=== PATIENT | female | born 1960 | race Caucasian/White ===

== ENCOUNTER → 2016-12-12 | Outpatient (CLI) | payer OTHER ==
[~2016-12-12] MED LIST: CALC500C70 PO; CIPR-255 PO; LOSARTAN PO; MELO7.5T5 PO; NRN100 PO
--- NOTE | 2016-12-12 14:42 | DIAGNOSTIC IMAGING REPORT ---
CT SCAN OF THE CHEST WITHOUT IV CONTRAST CLINICAL HISTORY: Hyponatremia. Weight loss. COMPARISON STUDY: Chest x-ray dated 11/06/2016. TECHNIQUE: CT scan of the thorax was performed from the thoracic inlet to the upper abdomen. Images are reviewed in the axial, sagittal, and coronal planes. IV contrast was not administered for this examination as per the referring clinician. CT DOSE: 174.23 mGycm FINDINGS: Thyroid: Imaged portions of the thyroid gland are normal in size and attenuation. Thoracic aorta: There is mild atherosclerotic calcification of the thoracic aorta, which is normal in caliber and demonstrates standard 3-vessel arch anatomy. Heart: The heart is normal in size and without pericardial effusion. The coronary arteries are densely calcified. The pulmonary trunk is normal in caliber. Lungs and pleural spaces: There is emphysema and biapical scarring. No airspace consolidation or pleural effusion is identified. Small fat-containing Bochdalek hernias are present at both lung bases. Minimal scarring is present in the right middle lobe and lingula. There are minimal layering secretions identified within the right mainstem bronchus. The trachea is clear. There is a 4 mm right upper lobe pulmonary nodule seen on axial image #102. A 2 mm right lower lobe nodule seen image 285. Calcified granuloma is also noted at the right lung base. Mediastinum: There is no mediastinal lymphadenopathy. Viri: Not well assessed without IV contrast. Axillae: There is no axillary lymphadenopathy. Upper abdomen: Diverticula are noted in the partially imaged left colon. Partially visualized upper abdominal viscera is otherwise within normal limits. Skeletal structures: The skeletal structures are osteopenic. No lytic or blastic bony lesions are seen. There are healed left-sided rib fractures. There is also likely a healed manubrial fracture. IMPRESSION: 1. Emphysema. 2. There is no airspace consolidation or pleural effusion. 3. There is an indeterminant 4 mm right upper lobe pulmonary nodule. A 2 mm pulmonary nodule is seen at the right lung base. These can be followed as per the Fleischner criteria. See below. 4. No mediastinal lymphadenopathy is identified. 5. Additional changes as above. Please refer to below summary of Fleischner criteria recommendations for follow-up of incidental CT nodules (Pavan Michel, Guidelines for management of small pulmonary nodules detected on CT scans: A statement from the Fleischner Society, Radiology 237: [id number].) Low Risk Patient: Minimal or no smoking or other known risk factors for malignancy <=4 mm: No follow-up needed. >4-6 mm: Initial follow-up CT at 12 months; if unchanged, no further follow-up. >6-8 mm: Initial follow-up CT at 6-12 months then at 18-24 months if no change. >8 mm: Follow-up CT at \R\3, 9, 24 months, or PET and/or biopsy. High Risk Patient: History of smoking or other known risk factors <=4 mm: Follow-up at 12 months; if unchanged, no further follow-up. >4-6 mm: Initial follow-up CT at 6-12 months then at 18-24 months if no change. >6-8 mm: Initial follow-up CT at 3-6 months then at 9-12 and 24 months if no change. >8 mm: Same as low risk patient. Note: Nodule size measured as average of length and width. Ground glass or partly solid nodules may require longer follow-up to exclude indolent adenocarcinoma. Electronically signed by: Deyvi Murrieta M.D. 12/12/2016 2:40 PM Dictated Date/Time: 12/12/2016 2:33 PM
== END | disposition home or self-care (01) ==
LOC: C.CTS 14:14
PROVIDERS: ATTEND Internal Medicine
DX: E87.1 Hypo-osmolality and hyponatremia (principal); R63.4 Abnormal weight loss; J43.9 Emphysema, unspecified; R91.8 Other nonspecific abnormal finding of lung field

== ENCOUNTER → 2016-12-19 | Outpatient (CLI) | payer OTHER ==
[2016-12-19 12:42] LABS: BLOOD UREA NITROGEN 4 mg/dl (7-18); BUN/CREATININE RATIO 5.8 (10-20); CALCIUM 8.9 mg/dl (8.5-10.1); CARBON DIOXIDE 25 mmol/L (21-32); CHLORIDE 97 mmol/L (98-107); CREATININE 0.68 mg/dl (0.60-1.20); GLUCOSE 109 mg/dl (70-99); SODIUM 132 mmol/L (136-145)
== END | disposition home or self-care (01) ==
LOC: C.LABBFT 09:24
PROVIDERS: ATTEND Internal Medicine
DX: I10 Essential (primary) hypertension (principal)

== ENCOUNTER → 2017-01-10 | Outpatient (CLI) | payer OTHER ==
--- NOTE | 2017-01-10 14:06 | DIAGNOSTIC IMAGING REPORT ---
CERVICAL SPINE 2 OR 3 VIEWS CLINICAL HISTORY: Neck pain. No recent injury. COMPARISON STUDY: No previous studies for comparison. FINDINGS: There is straightening of the normal cervical lordosis. Slight anterolisthesis of C4 on C5 is present. There is mild to moderate disc space narrowing at C5-C6. There is mild multilevel facet arthrosis. No fracture or suspicious lesion is present. Prevertebral soft tissues are unremarkable. IMPRESSION: 1. No cervical spine fracture or subluxation. 2. Mild to moderate degenerative disc disease at C5-C6. Electronically signed by: Teo Gtz M.D. 01/10/2017 2:05 PM Dictated Date/Time: 01/10/2017 2:02 PM
== END | disposition home or self-care (01) ==
LOC: C.RAD1850 13:50
PROVIDERS: ATTEND Internal Medicine
DX: M54.2 Cervicalgia (principal); M50.322 Other cervical disc degeneration at C5-C6 level

== ENCOUNTER → 2017-01-10 | Outpatient (CLI) | payer OTHER | END | disposition home or self-care (01) | LOC: C.MAMM 13:31 | PROVIDERS: ATTEND Internal Medicine | DX: M81.0 Age-related osteoporosis without current pathological fracture (principal) ==

== ENCOUNTER → 2017-03-05 | Outpatient (CLI) | payer OTHER ==
--- NOTE | 2017-03-05 09:55 | DIAGNOSTIC IMAGING REPORT ---
THORACIC SPINE 3 VIEWS ROUTINE CLINICAL HISTORY: Right arm pain and numbness. Osteoporosis. COMPARISON STUDY: Chest CT December 12, 2016. FINDINGS: There are several old left rib fractures. No thoracic spine fracture is identified. Disc spaces are preserved. There is minimal endplate osteophytosis. IMPRESSION: 1. No thoracic spine fracture or subluxation. 2. Minimal multilevel degenerative disc disease of the thoracic spine. Electronically signed by: Teo Gtz M.D. 03/05/2017 9:53 AM Dictated Date/Time: 03/05/2017 9:51 AM
[2017-03-05 12:33] LABS: CALCIUM 8.9 mg/dl (8.5-10.1)
[2017-03-06 16:40] LABS: ALBUMIN 4.3 G/DL (3.8-4.8); GAMMA GLOBULIN 0.9 G/DL (0.8-1.7)
== END | disposition home or self-care (01) ==
LOC: C.RAD1850 09:07
PROVIDERS: ATTEND Internal Medicine Rheumatology
DX: M81.0 Age-related osteoporosis without current pathological fracture (principal); M51.34 Other intervertebral disc degeneration, thoracic region

== ENCOUNTER → 2017-03-08 | Outpatient (CLI) | payer OTHER ==
--- NOTE | 2017-03-08 07:30 | DIAGNOSTIC IMAGING REPORT ---
CERVICAL SPINE MRI HISTORY: Pain CERVICAL RADICULOPATHY TECHNIQUE: Multiplanar multisequence MRI of the cervical spine was performed without the use of contrast. COMPARISON STUDY: None. FINDINGS: Unremarkable signal characteristics of the vertebral bodies. Benign bone marrow hemangioma C6. Posterior bulging disc components C5-C6 and to a lesser extent C6-C7. Signal characteristics the cervical cord are unremarkable. C2-C3: No significant central canal or neural foraminal narrowing. C3-C4: No significant central canal or neural foraminal narrowing. C4-C5: No significant central canal or neural foraminal narrowing. C5-C6: Broad-based disc herniation. Contact with but no major deformity of the cervical cord. Considerable narrowing of the neuroforamina bilaterally. C6-C7: Slight right central disc bulge. Mild narrowing right neural foramina. No impact with cervical cord C7-T1: No significant central canal or neural foraminal narrowing. IMPRESSION: 1. Broad-based disc herniation C5-C6. 2. This shows considerable narrowing of the neuroforamina bilaterally. 3. Slight right central disc bulge C6-C7 with mild narrowing of the right neuroforamina Electronically signed by: Karl Diaz M.D. 03/08/2017 7:28 AM Dictated Date/Time: 03/08/2017 7:24 AM
== END | disposition home or self-care (01) ==
LOC: C.MRI 03-06 07:37
PROVIDERS: ATTEND Internal Medicine
DX: M54.12 Radiculopathy, cervical region (principal); R29.898 Other symptoms and signs involving the musculoskeletal system

== ENCOUNTER → 2017-05-20 | Outpatient (CLI) | payer OTHER | END | disposition home or self-care (01) | LOC: C.LAB1850 11:20 | PROVIDERS: ATTEND Internal Medicine Rheumatology | DX: E55.9 Vitamin D deficiency, unspecified (principal); E61.8 Deficiency of other specified nutrient elements; M81.0 Age-related osteoporosis without current pathological fracture ==

== ENCOUNTER → 2017-07-15 | Outpatient (CLI) | payer OTHER ==
--- NOTE | 2017-07-15 11:05 | DIAGNOSTIC IMAGING REPORT ---
SI JOINTS 3 OR MORE VIEWS CLINICAL HISTORY: 57 years-old Female presenting with SACROILIITIS. TECHNIQUE: Frontal and bilateral oblique views of the sacroiliac joints were obtained. COMPARISON: None. FINDINGS: No significant abnormality of the sacroiliac joints. Arcuate lines intact. No acute fracture or malalignment is evident. No significant degenerative change in the lower lumbar spine. Bilateral hip joints grossly normal. IMPRESSION: No radiographic abnormality of the bilateral sacroiliac joints. Electronically signed by: Erich Noriega M.D. 07/15/2017 11:04 AM Dictated Date/Time: 07/15/2017 11:02 AM
== END | disposition home or self-care (01) ==
LOC: C.RADBC 10:33
PROVIDERS: ATTEND Physician Assistant Medical
DX: M46.1 Sacroiliitis, not elsewhere classified (principal)

== ENCOUNTER 2017-12-21 11:06 | Emergency (ER) | payer OTHER ==
[~2017-12-21] VITALS: Ht 167.6 cm; Wt 43.3 kg
[~2017-12-21 11:06] MED LIST changes: -CIPR-255 PO
[2017-12-21 11:11] VITALS: TEMP 36.4; Ht 167.6 cm; Wt 43.3 kg
[2017-12-21] MEDS ORDERED: LOSA50TA6 PO (11:20)
--- NOTE | 2017-12-21 12:55 | DIAGNOSTIC IMAGING REPORT ---
L HIP UNILATERAL 2 VIEWS CLINICAL HISTORY: Fall. Posterior left hip pain. COMPARISON: None FINDINGS: Alignment of the left hip is anatomic. No acute fracture is identified. There is mild osteoarthritis of the left hip. IMPRESSION: No acute fracture or dislocation of the left hip. Electronically signed by: Teo Gtz M.D. 12/21/2017 12:53 PM Dictated Date/Time: 12/21/2017 12:53 PM
--- NOTE | 2017-12-21 12:56 | DIAGNOSTIC IMAGING REPORT ---
L KNEE 3 VIEWS CLINICAL HISTORY: Anterior left knee pain following fall. COMPARISON: None FINDINGS: Alignment of the left knee is anatomic. There is apparent osteopenia. There is no acute fracture. There is mild to moderate vascular calcification. IMPRESSION: 1. No acute fracture or joint effusion of the left knee. 2. Apparent osteopenia. Electronically signed by: Teo Gtz M.D. 12/21/2017 12:55 PM Dictated Date/Time: 12/21/2017 12:54 PM
--- NOTE | 2017-12-21 12:56 | DIAGNOSTIC IMAGING REPORT ---
R KNEE 3 VIEWS CLINICAL HISTORY: Anterior right knee pain following fall. COMPARISON: None FINDINGS: Alignment of the right knee is anatomic. No acute fracture or joint effusion is present. There is moderate vascular calcification. There is apparent osteopenia. IMPRESSION: 1. No acute fracture or joint effusion of the right knee. 2. Apparent osteopenia. Electronically signed by: Teo Gtz M.D. 12/21/2017 12:54 PM Dictated Date/Time: 12/21/2017 12:54 PM
[2017-12-21 13:28] VITALS: BP 134/91; PULSE 76; O2SAT 99
--- NOTE | 2017-12-21 20:50 | EMERGENCY ROOM VISIT NOTE ---
ED Visit Note First contact with patient: 12:01 Chief Complaint: I fell walking up the stairs at work and hurt both knees and my left hip. History of Present Illness: Ms. Avitia is a 57-year-old white female who ambulates into the ED with a limp complaining of bilateral anterior knee pain and posterior left hip pain. Patient reports she was at work today walking up stairs, tripped and fell onto her knees. She reports before the fall she was not experiencing lightheadedness or dizziness, the time of the fall she did not strike her head or have a loss of consciousness and since the fall she is not experiencing any signs of head injury. Currently she is complaining of bilateral anterior knee pain; left greater than the right. She describes her pain as an achy sensation. She rates her discomfort 7/10. Her pain in her left knee worsens with ambulation. She has not found any factors that increase or right. She has not identified any alleviating factors related to the pain. She has not taken any medications for pain prior to arrival at the hospital. Associated with her pain she does report that she is having posterior left hip pain. She describes this as an achy sensation and rates her discomfort 5/10. She has not identified any aggravating or alleviating factors related to the pain. She denies any associated back pain, abdominal pain, leg weakness/numbness/ tingling. Additionally she denies any previous significant knee or hip injuries /surgeries. Review of Systems: As noted above in history of present illness. 5 body systems were reviewed and found to be negative as noted above. Past Medical History: Hypertension, osteoporosis, hyponatremia and status post unspecified left wrist surgery. Current Medications: Calcium/vitamin D, Cozaar. Allergies to Medications: IV contrast materials. Social History: Patient is currently employed; she feels safe in her home environment; she admits to tobacco use. Physical Examination: Vital Signs: Date Time Temp Pulse Resp B/P (MAP) Pulse Ox O2 Delivery O2 Flow Rate FiO2 12/21/17 13:28 76 134/91 99 12/21/17 11:11 36.4 80 18 179/105 96 Room Air GENERAL: 57-year-old female in mild distress due to pain, nontoxic-appearing, afebrile and hemodynamically stable. NEUROLOGICAL: Awake, alert and oriented to person, place and time. Answering questions appropriately and following commands. Limped gait. Good hand eye coordination. SKIN: Warm, dry and pink. Right Knee: Superficial abrasion over the patellar tendon. No active bleeding. HEENT: Atraumatic and normocephalic. BACK: No tenderness over the bony spine. RIGHT LOWER EXTREMITY: No gross bony deformity. No shortening or malrotation. No tenderness over the hip, thigh, lower leg or ankle. Mild anterior tenderness without bony deformity or crepitus. Negative bounce test. Negative patellar apprehension test. Negative effusion test. No laxity of the collateral or cruciate ligaments. Negative meniscus testing. Throughout the lower leg skin was warm and pink and capillary refill is brisk. She is able to distinguish light sensations through all dermatomes. Full range of motion against resistance flexion and extension of the knee and plantar flexion and dorsiflexion of the ankle. LEFT LOWER EXTREMITY: No gross bony deformity. No shortening or malrotation. Mild tenderness over the posterior humeral head without bony deformity, bony crepitus, swelling or ecchymosis. No tenderness throughout the thigh. Mild tenderness over the anterior knee without bony deformity or crepitus. Negative bounce test. Negative patellar apprehension test. Negative effusion test. No laxity of the collateral or cruciate ligaments. Negative meniscus testing. Throughout the lower leg skin was warm and pink and capillary refill is brisk. She is able to distinguish light sensations through all dermatomes. Full range of motion against resistance flexion and extension of the knee and plantar flexion and dorsiflexion of the ankle. ED Course: Patient is assessed as noted above. Patient's medication list was reviewed. Patient was offered pain medication and refused. Left Hip X-Rays: Were read by myself and the radiologist showing no acute fracture dislocations. Right Knee X-Rays: Were read by myself and the radiologist showing no acute fractures or dislocations. Radiologist notes apparent osteopenia. Left Hip X-Rays: Were read by myself and the radiologist showing no acute fractures or dislocations. Radiologist notes apparent osteopenia. Patient was offered knee immobilizer, Albino bandages, walker, cane and crutches and refused all; patient reports she had a spent edges at home and would prefer to use those. Patient was educated about today's findings and instructed on her treatment plan ; she verbalized understanding and agreement with this plan. Clinical Impression: Fall. Bilateral anterior knee pain. Left posterior hip pain. Disposition: Patient discharged home in stable condition accompanied by her boyfriend; prior to departure she was reassessed and subjectively reported she was feeling much better and rated her discomfort 3/10. Plan: Patient is encouraged to alternate ibuprofen and acetaminophen every 3 hours for persistent pain per Patient was encouraged use ice on areas of pain 4-5 times a day for 20-30 minutes per Patient was encouraged to use her home knee splint or Albino bandage for support until pain-free. Patient is encouraged to follow-up with her primary care provider if no better in 4-5 days. Patient was encouraged return ED for worsening/uncontrolled pain, uncontrolled swelling, leg weakness/numbness/tingling or any new/concerning symptoms.
== END 2017-12-21 13:20 | disposition home or self-care (01) ==
LOC: C.EDB 11:07 → C.EDD 13:20
DX: M25.561 Pain in right knee (principal); M25.562 Pain in left knee; M25.552 Pain in left hip; W10.9XXA Fall (on) (from) unspecified stairs and steps, initial encounter; W22.8XXA Striking against or struck by other objects, initial encounter; Y93.01 Activity, walking, marching and hiking; Y99.8 Other external cause status; I10 Essential (primary) hypertension; M81.0 Age-related osteoporosis without current pathological fracture; Z72.0 Tobacco use; Z98.890 Other specified postprocedural states; Z79.899 Other long term (current) drug therapy

== ENCOUNTER → 2017-12-30 | Outpatient (CLI) | payer OTHER ==
[~2017-12-30] MED LIST changes: +LOSA50TA6 PO; -LOSARTAN PO; -MELO7.5T5 PO; -NRN100 PO
--- NOTE | 2017-12-30 11:10 | DIAGNOSTIC IMAGING REPORT ---
(CHEST) THORAX WITHOUT CT DOSE: 215.24 mGy.cm HISTORY: Pulmonary nodule R91.1 Pulmonary nodule1 year follow-[id number] TECHNIQUE: Multiaxial CT images of the chest were performed without contrast. A dose lowering technique was utilized adhering to the principles of ALARA. COMPARISON: None. FINDINGS: Stable emphysematous change. No focal infiltrate. Biapical pleural and parenchymal fibrotic scarring considered chronic. Right lung micronodular area stable. No evidence for new interval or progressive process. No significant mediastinal or hilar adenopathy. IMPRESSION: 1. Unchanged exam. 2. Stable emphysematous change. 3. Micronodularity right hemithorax is unchanged. A 1-2 year follow-up is suggested. The above report was generated using voice recognition software. It may contain grammatical, syntax or spelling errors. Electronically signed by: Karl Diaz M.D. 12/30/2017 11:08 AM Dictated Date/Time: 12/30/2017 11:04 AM
== END | disposition home or self-care (01) ==
LOC: C.CTS 10:52
PROVIDERS: ATTEND Internal Medicine
DX: R91.1 Solitary pulmonary nodule (principal)

== ENCOUNTER 2018-06-08 19:38 | Inpatient (IN) | payer OTHER ==
[~2018-06-08] VITALS: Ht 167.6 cm; Wt 43.7 kg
[2018-06-08] MEDS ORDERED: HYDROmorphone INJ 1 MG/ML SYR IV STA (20:10)
[2018-06-08] MEDS ORDERED: MELO7.5T5 PO (20:43)
[2018-06-08] MEDS ORDERED: LORA-741 PO (20:43)
[2018-06-08] MEDS ORDERED: LOSA100T65 PO (20:43)
[2018-06-08 20:53] LABS: BASO % 0.5 %; BASO ABS # 0.03 K/uL (0-0.2); EOS % 0.8 %; EOS ABS # 0.05 K/uL (0-0.5); HEMATOCRIT 34.9 % (37-47); HEMOGLOBIN 12.9 g/dL (12.0-16.0); IG# 0.02 K/uL (0.00-0.02); LYMPH % 34.6 %; MEAN CELL VOLUME 91.1 fL (80-100); MEAN CORPUSCULAR HEMOGLOBIN 33.7 pg (25-34); MEAN PLATELET VOLUME 7.9 fL (7.4-10.4); MONO % 11.8 %; MONO ABS # 0.75 K/uL (0.11-0.59); PLATELET COUNT 370 K/uL (130-400); RED CELL DISTRIBUTION WIDTH CV 12.3 % (11.5-14.5); RED CELL DISTRIBUTION WIDTH SD 40.9 fL (36.4-46.3); WHITE BLOOD COUNT 6.35 K/uL (4.8-10.8)
--- NOTE | 2018-06-08 20:58 | DIAGNOSTIC IMAGING REPORT ---
LUMBAR SPINE WITHOUT CT DOSE: 283.64 mGy.cm HISTORY: Pain lower back pain TECHNIQUE: Multiaxial CT images of the lumbar spine were performed and reformatted in the sagittal and coronal plane without the use of contrast. A dose lowering technique was utilized adhering to the principles of ALARA. COMPARISON: None. FINDINGS: No fractures. No subluxation. Paraspinal soft tissues are unremarkable. Minimal disc changes throughout. Mild osteophytes throughout. No significant compromise of spinal canal based on this modality IMPRESSION: Minimal to mild degenerative disc change. No significant component of spinal stenosis. No acute process. The above report was generated using voice recognition software. It may contain grammatical, syntax or spelling errors. Electronically signed by: Karl Diaz M.D. 06/08/2018 8:56 PM Dictated Date/Time: 06/08/2018 8:54 PM
[2018-06-08] MEDS ORDERED: ONDANSETRON INJ 2 MG/ML 2 ML VIAL IV STA (21:06)
[2018-06-08] MEDS ORDERED: ONDANSETRON INJ 2 MG/ML 2 ML VIAL ONE (21:08)
[2018-06-08 21:25] LABS: CALCIUM 8.6 mg/dl (8.5-10.1); CREATININE 0.67 mg/dl (0.60-1.20); POTASSIUM 4.7 mmol/L (3.5-5.1); TOTAL PROTEIN 7.3 gm/dl (6.4-8.2)
--- NOTE | 2018-06-08 22:08 | EMERGENCY ROOM VISIT NOTE ---
History Report prepared by Juan: Courtney Borden Under the Supervision of: Dr. Richard Roldan First contact with patient: 20:03 Chief Complaint: BACK PAIN Stated Complaint: BACK PAIN History of Present Illness The patient is a 58 year old female who presents to the Emergency Room with complaints of worsening lower back pain over the last month. The patient states that last month she started to have lower back pain in addition to her neck pain. The patient reports that she had an MRI of her neck done but that she has not had imaging of her back done. The patient reports that the MRI showed disc problems. She reports that her pain occasionally radiates to her left leg. She denies having any new numbness or tingling in her legs. She denies any recent falls or lifting. She reports normal bowel movements and urination. She states that she saw her back doctor last week and had an IV injection and was given 2 Tylenol. The patient states that her doctor told her that she should go to therapy. She states that she has been taking Tylenol for her pain but that it has not helped her much. She reports that moving exacerbates her pain. The patient denies a history of lower back surgeries. Source of History: patient Onset: over the last month Position: back Quality: other (pain) Timing: worsening Modifying Factors (Worsening): movement Associated Symptoms: No urinary symptoms, No numbness Review of Systems See HPI for pertinent positives and negatives. A total of ten systems were reviewed and were otherwise negative. Past Medical & Surgical Medical Problems: (1) Open reduction of fracture (2) Pneumonia Family History No pertinent family history Social History Smoking Status: Current Every Day Smoker Marital Status: in relationship Housing Status: lives with significant other Occupation Status: employed Current/Historical Medications Scheduled Losartan Potassium (Cozaar), 100 MG PO DAILY Scheduled PRN Lorazepam (Ativan), 0.5 MG PO BID PRN for Anxiety Meloxicam (Mobic), 7.5-15 MG PO DAILY PRN for Pain Allergies Coded Allergies: Iodinated Diagnostic Agents (Unverified Allergy, Unknown, UNKNOWN, 12/21/17 ) Uncoded Allergies: IVP DYE (Allergy, Unknown, swelling hives, 11/06/16) Physical Exam Vital Signs Date Time Temp Pulse Resp B/P (MAP) Pulse Ox O2 Delivery O2 Flow Rate FiO2 06/08/18 22:30 77 22 136/78 100 Room Air 06/08/18 22:00 69 16 150/80 98 Room Air 06/08/18 21:22 72 06/08/18 21:10 79 28 154/90 98 Room Air 06/08/18 19:41 36.7 94 20 198/101 99 Room Air Physical Exam GENERAL: Uncomfortable lying in bed. HENT: Normocephalic, atraumatic. Oropharynx unremarkable. EYES: Normal conjunctiva. Sclera non-icteric. NECK: Supple. No nuchal rigidity. RESPIRATORY: Clear to auscultation. No wheezes. Normal respiratory effort. CARDIAC: Normal rate. Normal rhythm. Extremities warm and well perfused. GI: Soft, non-distended. No tenderness to palpation. No rebound or guarding. No masses. RECTAL: Deferred. MUSCULOSKELETAL: Atraumatic. Chest examination reveals no tenderness. The back is symmetrical on inspection without obvious abnormality. Very mild lower lumbar midline tenderness. No significant paraspinal tenderness. Intact neurologic sensation and movement of the bilateral feet. No saddle paresthesia. There is no CVA tenderness to palpation. LOWER EXTREMITIES: Calves are equal size bilaterally and non-tender. No edema. 2 + bilateral patellar reflexes. NEURO: Normal sensorium. No sensory or motor deficits noted. SKIN: Warm and dry. No rash or jaundice noted. Medical Decision & Procedures ER Provider Diagnostic Interpretation: Radiology results as stated below per my review and radiologist interpretation: LUMBAR SPINE WITHOUT CT DOSE: 283.64 mGy.cm HISTORY: Pain lower back pain TECHNIQUE: Multiaxial CT images of the lumbar spine were performed and reformatted in the sagittal and coronal plane without the use of contrast. A dose lowering technique was utilized adhering to the principles of ALARA. COMPARISON: None. FINDINGS: No fractures. No subluxation. Paraspinal soft tissues are unremarkable. Minimal disc changes throughout. Mild osteophytes throughout. No significant compromise of spinal canal based on this modality IMPRESSION: Minimal to mild degenerative disc change. No significant component of spinal stenosis. No acute process. The above report was generated using voice recognition software. It may contain grammatical, syntax or spelling errors. Electronically signed by: Karl Diaz M.D. 06/08/2018 8:56 PM Dictated Date/Time: 06/08/2018 8:54 PM Laboratory Results 06/08/18 20:43 Red Blood Count 3.83, Mean Corpuscular Volume 91.1, Mean Corpuscular Hemoglobin 33.7, Mean Corpuscular Hemoglobin Concent 37.0, Mean Platelet Volume 7.9, Neutrophils (%) (Auto) 52.0, Lymphocytes (%) (Auto) 34.6, Monocytes (%) (Auto) 11.8, Eosinophils (%) (Auto) 0.8, Basophils (%) (Auto) 0.5, Neutrophils # (Auto ) 3.30, Lymphocytes # (Auto) 2.20, Monocytes # (Auto) 0.75, Eosinophils # (Auto ) 0.05, Basophils # (Auto) 0.03 06/08/18 20:43 Test 06/08/18 20:43 06/08/18 22:55 White Blood Count 6.35 K/uL (4.8-10.8) Red Blood Count 3.83 M/uL (4.2-5.4) Hemoglobin 12.9 g/dL (12.0-16.0) Hematocrit 34.9 % (37-47) Mean Corpuscular Volume 91.1 fL (80-100) Mean Corpuscular Hemoglobin 33.7 pg (25-34) Mean Corpuscular Hemoglobin Concent 37.0 g/dl (32-36) Platelet Count 370 K/uL (130-400) Mean Platelet Volume 7.9 fL (7.4-10.4) Neutrophils (%) (Auto) 52.0 % Lymphocytes (%) (Auto) 34.6 % Monocytes (%) (Auto) 11.8 % Eosinophils (%) (Auto) 0.8 % Basophils (%) (Auto) 0.5 % Neutrophils # (Auto) 3.30 K/uL (1.4-6.5) Lymphocytes # (Auto) 2.20 K/uL (1.2-3.4) Monocytes # (Auto) 0.75 K/uL (0.11-0.59) Eosinophils # (Auto) 0.05 K/uL (0-0.5) Basophils # (Auto) 0.03 K/uL (0-0.2) RDW Standard Deviation 40.9 fL (36.4-46.3) RDW Coefficient of Variation 12.3 % (11.5-14.5) Immature Granulocyte % (Auto) 0.3 % Immature Granulocyte # (Auto) 0.02 K/uL (0.00-0.02) Anion Gap 9.0 mmol/L (3-11) Est Creatinine Clear Calc Drug Dose 61.5 ml/min Estimated GFR () 110.7 Estimated GFR (Non- 95.5 BUN/Creatinine Ratio 6.0 (10-20) Osmolality 237 mOsm/kg (280-300) Calcium Level 8.6 mg/dl (8.5-10.1) Magnesium Level 2.0 mg/dl (1.8-2.4) Total Bilirubin 0.6 mg/dl (0.2-1) Direct Bilirubin 0.2 mg/dl (0-0.2) Aspartate Amino Transf (AST/SGOT) 29 U/L (15-37) Alanine Aminotransferase (ALT/SGPT) 24 U/L (12-78) Alkaline Phosphatase 87 U/L (45-117) Total Protein 7.3 gm/dl (6.4-8.2) Albumin 4.0 gm/dl (3.4-5.0) Lipase 129 U/L (73-393) Thyroid Stimulating Hormone (TSH) 2.080 uIu/ml (0.300-4.500) Laboratory results reviewed by me Medications Administered Medications (Trade) Dose Ordered Sig/Rivera Route Start Time Stop Time Status Last Admin Dose Admin Hydromorphone HCl (Dilaudid Inj) 1 mg NOW STAT IV 06/08/18 20:10 06/08/18 20:16 DC 06/08/18 20:40 1 MG Ondansetron HCl (Zofran Inj) 4 mg NOW STAT IV 06/08/18 21:06 06/08/18 21:08 DC 06/08/18 21:06 4 MG ECG Per My Interpretation Indication: weakness Rhythm: normal sinus Findings: no ectopy, other (No ST segment elevation. Prominent precordial T waves.) Comparison ECG Date: Change: Compared to previous from November 06, 2016 no appreciable change when accounting for some precordial lead placement variation. ED Course 2002: The patient was evaluated in room C10. A complete history and physical exam was performed. 2009: Ordered Dilaudid Inj 1 mg IV. 2105: Ordered Zofran Inj 4 mg IV. 2139: Updated patient on CT results and labs. Patient pain somewhat improved. Sodium critically low. 2149: [facility] [place] Dr. Mcwilliams contacted for admission of patient. Patient will be evaluated. Medical Decision Differential diagnosis: Etiologies such as musculoskeletal, disc herniation, fracture, aortic disease, metastatic disease, cord compression, discitis, infection, renal colic, gastrointestinal, acute exacerbation of chronic back pain, sciatica, cauda equina, as well as others were entertained. Patient presents complaining of month of worsening back pain. Recently had a Reclast injection last week. No nausea or vomiting or abdominal pain. No neurological symptoms in lower extremities or saddle anesthesia. No bladder or bowel incontinence. Denies recent trauma. Has a history of some spine issues. Refractory to Tylenol and meloxicam at home. Feels somewhat tremulous and foggy. Basic laboratory studies were evaluated but I doubt any intra-abdominal pathology she has a benign abdomen. Do not believe this is cauda equina or spinal epidural abscess. CT scan of the lower lumbar spine was obtained to exclude an occult fracture; not noted. Some mild degenerative changes noted. No evidence of shingles. This could be somewhat related also to the Reclast injection giving her some pain as well. Doubt acute infection. Doubt pancreatitis or dissection. Laboratory studies do show a significant hyponatremia. She does relate that she drinks about 2 beers a day and has had significantly decreased oral intake over the last several days due to her back pain. No diarrhea or vomiting. On losartan for BP only. Kidney function appears at baseline without acidosis, hypomagnesemia, or hypokalemia. No TSH abnormality. No hepatic abnormalities or lipase elevation. Low serum osms. Appears mildly dehydrated but need to be cautious with rehydration given her sodium status. Urine studies pending. Plan admission for hyponatremia workup. [place] Drug Monitoring Program Search Results: patient reviewed within database, no issues identified Medication Reconcilliation Current Medication List: was personally reviewed by me Blood Pressure Screening Patient's blood pressure: Elevated blood pressure Blood pressure disposition: Referred to PCP Impression Primary Impression: Hyponatremia Additional Impression: Back pain Scribe Attestation The scribe's documentation has been prepared under my direction and personally reviewed by me in its entirety. I confirm that the note above accurately reflects all work, treatment, procedures, and medical decision making performed by me. Departure Information Referrals Estefania Gtz M.D. (PCP) Patient Instructions My [facility] Problem Qualifiers Additional Impression: Back pain Back pain location: low back pain Chronicity: acute Back pain laterality: bilateral Sciatica presence: without sciatica Qualified Codes: M54.5 - Low back pain
[2018-06-08 23:22] LABS: SODIUM RANDOM URINE 29 mEq/L
[2018-06-08 23:49] LABS: OSMOLALITY,URINE 242 mOms/kg (500-800)
--- NOTE | 2018-06-09 00:07 | History and Physical ---
History & Physical Date & Time of Service: Jun 09, 2018 at 00:07 Chief Complaint: Back Pain Primary Care Physician: Estefania Gtz M.D. History of Present Illness Source: patient, family 77 yo F h/o HTN on Losartan p/w back pain x 1.5 months ago. Left lower back, flank pain. She was seen by by Pain management physial therapy. Pain has worsened within last week. Pain is constant, 10/10 severity. no aggravating, or alleviating factors. Patient reports nausea/vomiting x 6 days. She denies fever , chills ,abdominal pain, diarrhea, thought she reports multiple episodes of diarrhea. She denies urinary freq urgency, hematuria. She occasionally gets shooting pain down Left leg. No history of cancer, no loss of bladder or bowel control. In the ED, patient arrived afebrile. BP initially elevated at 198/101 but lowered to 136/78. CT Lumbar spine showed minimal to ,mild degenerative disc change, no acute processes. WBC ct wnl. NA 115 ( baseline 129-132) Serum osm 237, Bun/Cr wnl. Past Medical/Surgical History Medical Problems: (1) Diarrhea (2) Fall (on) (from) other stairs and steps, initial encounter (3) Open reduction of fracture (4) Pneumonia (5) UTI (urinary tract infection) (6) Viral upper respiratory infection Family History CAD Social History Smoking Status: Current Every Day Smoker Smokeless Tobacco Use: No Alcohol Use: none Drug Use: none Marital Status: in relationship Housing status: lives with family Occupational Status: employed Immunizations History of Influenza Vaccine: Unknown History of Tetanus Vaccine?: Unknown History of Pneumococcal: Unknown History of Hepatitis B Vaccine: Unknown Allergies Coded Allergies: Iodinated Diagnostic Agents (Unverified Allergy, Unknown, swelling, hives , 06/09/18) Home Medications Scheduled Losartan Potassium (Cozaar), 100 MG PO DAILY Scheduled PRN Lorazepam (Ativan), 0.5 MG PO BID PRN for Anxiety Meloxicam (Mobic), 7.5-15 MG PO DAILY PRN for Pain Review of Systems Constitutional: No fever, No chills, No weakness ENT: No nasal symptoms, No sore throat Respiratory: No cough, No shortness of breath Cardiovascular: No chest pain, No edema, No palpitations Abdomen: + nausea, + vomiting, No pain, No diarrhea Musculoskeletal: No swelling, No calf pain Genitourinary - Female: No dysuria, No urinary frequency, No urinary urgency Neurologic: No weakness, No numbness/tingling Integumentary: No rash, No itch Physical Exam Vital Signs Date Time Temp Pulse Resp B/P (MAP) Pulse Ox O2 Delivery O2 Flow Rate FiO2 06/08/18 23:00 70 22 143/86 06/08/18 22:30 77 22 136/78 100 Room Air 06/08/18 22:00 69 16 150/80 98 Room Air 06/08/18 21:22 72 06/08/18 21:10 79 28 154/90 98 Room Air 06/08/18 19:41 36.7 94 20 198/101 99 Room Air GENERAL: alert, mild distress, thin EYE EXAM: normal conjunctiva, PERRL and EOM's grossly intact OROPHARYNX: no exudate, no erythema, lips, buccal mucosa, and tongue normal and mucous membranes are moist NECK: supple, no nuchal rigidity, no adenopathy, non-tender LUNGS: Clear to auscultation. Normal chest wall mechanics HEART: no murmurs, S1 normal and S2 normal ABDOMEN: abdomen soft, non-tender, normo-active bowel sounds, no masses, no rebound or guarding. BACK: Back is symmetrical on inspection and there is no deformity, no midline tenderness, +CVA tenderness. SKIN: no rashes and no bruising UPPER EXTREMITIES: upper extremities are grossly normal. LOWER EXTREMITIES: No pitting edema. NEURO EXAM: Normal sensorium, cranial nerves II-XII grossly intact, normal speech, no gross weakness of arms, no gross weakness of legs. Diagnostics Laboratory Results Results Past 24 Hours Test 06/08/18 20:43 06/08/18 22:55 Range/Units White Blood Count 6.35 4.8-10.8 K/uL Red Blood Count 3.83 4.2-5.4 M/uL Hemoglobin 12.9 12.0-16.0 g/dL Hematocrit 34.9 37-47 % Mean Corpuscular Volume 91.1 80-100 fL Mean Corpuscular Hemoglobin 33.7 25-34 pg Mean Corpuscular Hemoglobin Concent 37.0 32-36 g/dl Platelet Count 370 130-400 K/uL Mean Platelet Volume 7.9 7.4-10.4 fL Neutrophils (%) (Auto) 52.0 % Lymphocytes (%) (Auto) 34.6 % Monocytes (%) (Auto) 11.8 % Eosinophils (%) (Auto) 0.8 % Basophils (%) (Auto) 0.5 % Neutrophils # (Auto) 3.30 1.4-6.5 K/uL Lymphocytes # (Auto) 2.20 1.2-3.4 K/uL Monocytes # (Auto) 0.75 0.11-0.59 K/uL Eosinophils # (Auto) 0.05 0-0.5 K/uL Basophils # (Auto) 0.03 0-0.2 K/uL RDW Standard Deviation 40.9 36.4-46.3 fL RDW Coefficient of Variation 12.3 11.5-14.5 % Immature Granulocyte % (Auto) 0.3 % Immature Granulocyte # (Auto) 0.02 0.00-0.02 K/uL Sodium Level 115 136-145 mmol/L Potassium Level 4.7 3.5-5.1 mmol/L Chloride Level 83 98-107 mmol/L Carbon Dioxide Level 23 21-32 mmol/L Anion Gap 9.0 3-11 mmol/L Blood Urea Nitrogen 4 7-18 mg/dl Creatinine 0.67 0.60-1.20 mg/dl Est Creatinine Clear Calc Drug Dose 61.5 ml/min Estimated GFR () 110.7 Estimated GFR (Non- 95.5 BUN/Creatinine Ratio 6.0 10-20 Random Glucose 89 70-99 mg/dl Osmolality 237 280-300 mOsm/kg Calcium Level 8.6 8.5-10.1 mg/dl Magnesium Level 2.0 1.8-2.4 mg/dl Total Bilirubin 0.6 0.2-1 mg/dl Direct Bilirubin 0.2 0-0.2 mg/dl Aspartate Amino Transf (AST/SGOT) 29 15-37 U/L Alanine Aminotransferase (ALT/SGPT) 24 12-78 U/L Alkaline Phosphatase 87 45-117 U/L Total Protein 7.3 6.4-8.2 gm/dl Albumin 4.0 3.4-5.0 gm/dl Lipase 129 73-393 U/L Thyroid Stimulating Hormone (TSH) 2.080 0.300-4.500 uIu/ml Urine Color YELLOW Urine Appearance CLOUDY CLEAR Urine pH 5.5 4.5-7.5 Urine Specific [place] 1.011 1.000-1.030 Urine Protein NEG NEG Urine Glucose (UA) NEG NEG Urine Ketones TRACE NEG Urine Occult Blood TRACE NEG Urine Nitrite POS NEG Urine Bilirubin NEG NEG Urine Urobilinogen NEG NEG Urine Leukocyte Esterase LARGE NEG Urine WBC (Auto) >30 0-5 /hpf Urine RBC (Auto) 0-4 0-4 /hpf Urine Hyaline Casts (Auto) 1-5 0-5 /lpf Urine Epithelial Cells (Auto) 20-30 0-5 /lpf Urine Bacteria (Auto) 4+ NEG Urine Osmolality 242 500-800 mOms/kg Urine Random Sodium 29 mEq/L Microbiology Results 06/08/18 Urine Culture, Received Pending Diagnostic Radiology LUMBAR SPINE WITHOUT CT DOSE: 283.64 mGy.cm HISTORY: Pain lower back pain TECHNIQUE: Multiaxial CT images of the lumbar spine were performed and reformatted in the sagittal and coronal plane without the use of contrast. A dose lowering technique was utilized adhering to the principles of ALARA. COMPARISON: None. FINDINGS: No fractures. No subluxation. Paraspinal soft tissues are unremarkable. Minimal disc changes throughout. Mild osteophytes throughout. No significant compromise of spinal canal based on this modality IMPRESSION: Minimal to mild degenerative disc change. No significant component of spinal stenosis. No acute process. EKG NSR, RATE 71, NO ISCHEMIC CHANGES Normal EKG, No change from prior EKG Impression Assessment and Plan 77 yo F h/o HTN on Losartan p/w worsening back pain , Left sided flank pain found to have UTI, Hyponatremia Acute on Chronic Back Pain - back pain possibly secondary to degenerative disc disease as seen on lumbar spine CT vs renal etiology given flank pain( Stone, Pyelonephritis given positive UA and CVA tenderness) - Lumbar spine CT 06/09: minimal to mod. 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 Assessment and Plan: Hyponatremia/hypertension-- Sodium 115, serum osmolality 237, urine osmolality 242. Question element of polydipsia. Fluid restriction 1500 cc per day. Sodium chloride tablets 1 g p.o. twice daily. UTI/low back pain/flank pain-- Follow urine culture and sensitivity. Ceftriaxone [address] daily[address] Order CT abdomen and pelvis without contrast to assess for kidney stone/ pyelonephritis. Remainder of notes and orders as above. 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
[2018-06-09] MEDS ORDERED: MoRPHine SULFATE 4 MG/ML 1 ML CARP\\VIAL IV PRN (00:30)
[2018-06-09] MEDS ORDERED: ONDANSETRON INJ 2 MG/ML 2 ML VIAL IV PRN (00:30)
[2018-06-09] MEDS ORDERED: ALUMINUM/MAGNESIUM/SIMETH (MAALOX MAX) 30 ML UDC PO PRN (00:30)
[2018-06-09] MEDS ORDERED: MAGNESIUM HYDROXIDE SUSP 30 ML UDC PO PRN (00:30)
[2018-06-09] MEDS ORDERED: POLYETHYLENE (MIRALAX) 17 GM PACK PO PRN (00:30)
[2018-06-09] MEDS ORDERED: ACETAMINOPHEN 325 MG TAB PO PRN (00:30)
[2018-06-09] MEDS ORDERED: MoRPHine SULFATE 4 MG/ML 1 ML CARP\\VIAL ONE (00:54)
[2018-06-09] MEDS ORDERED: CEFTRIAXONE SOD INJ 1 GM ADDVIAL ONE (00:54)
[2018-06-09] MEDS ORDERED: ONDANSETRON INJ 2 MG/ML 2 ML VIAL ONE (00:54)
[2018-06-09 01:50] VITALS: BP 163/74; PULSE 84; TEMP 36.5; O2SAT 100; BMI 15.4
--- NOTE | 2018-06-09 07:20 | DIAGNOSTIC IMAGING REPORT ---
(CHEST) THORAX WITHOUT CT DOSE: 484.68 mGy.cm HISTORY: hyponatremia, h/o pulmonary nodule, TECHNIQUE: Multiaxial CT images of the chest were performed without contrast. A dose lowering technique was utilized adhering to the principles of ALARA. COMPARISON: Chest CT 12/30/2017. FINDINGS: Old, healed left-sided rib fractures. No acute fractures within the visualized osseous structures. Biapical pleural-parenchymal scarring, unchanged. No pneumothorax. No pleural effusions. Moderate emphysema, unchanged. A few scattered subcentimeter pulmonary nodules remain stable. Dominant nodule within the right upper lobe on image 89 measures 4 mm. Small focus of nodularity within the right middle lobe inferiorly favors scarring. Punctate calcified granuloma within the base of the right lower lobe. Trace mucosal material within the trachea and mainstem bronchi. No mediastinal or hilar lymphadenopathy. The heart is normal in size. Normal caliber thoracic aorta. IMPRESSION: 1. Overall, no significant change compared to the prior study. 2. Moderate emphysema. 3. Biapical scarlike densities and a few scattered subcentimeter pulmonary nodules remain stable. Electronically signed by: Bill Truong M.D. 06/09/2018 7:19 AM Dictated Date/Time: 06/09/2018 7:11 AM
--- NOTE | 2018-06-09 07:23 | DIAGNOSTIC IMAGING REPORT ---
ABDOMEN AND PELVIS CT WITHOUT CONTRAST HISTORY: Acute low back pain with questioned renal calculus r/o pyelo, Stone TECHNIQUE: Multiaxial CT images of the abdomen and pelvis were performed without contrast. A dose lowering technique was utilized adhering to the principles of ALARA. COMPARISON STUDY: CT chest of same day, CT lumbar spine 06/08/2018, CT chest 12/12/2016. FINDINGS: Unchanged 2 mm solid nodule of the right lower lobe on image 62 series 6. Calcified granuloma of the right lower lobe is also noted. Emphysema. Subsegmental opacities of the right middle lobe and inferior segment lingula suggests atelectasis/scarring. Emphysema. No pneumatosis or pneumoperitoneum. Imaged inferior cardiac chambers are unremarkable. Possible layering sludge within the gallbladder lumen. No CT evidence of cholelithiasis or acute cholecystitis. The liver, spleen and adrenal glands are unremarkable. No intrahepatic delayed ductal dilation. Moderate generalized pancreatic atrophy. Kidneys, ureters are unremarkable. Moderate urinary bladder distention. Uterus and adnexa are unremarkable. Vascular calcifications are seen within the pelvis. Severe calcification of the aorta with tortuosity. No pathologically enlarged lymph nodes are identified. Small sliding-type hiatal hernia with mild wall thickening about the distal esophagus. Moderate sized duodenal diverticulum. There is no bowel obstruction. Mild colonic diverticulosis without acute diverticulitis. The appendix appears normal. No ascites or mesenteric inflammatory changes. The soft tissues are within normal limits. The bones appear to be intact and are mildly demineralized. Multilevel spondylitic spurring and facet arthropathy. Levoscoliosis of the lumbar spine. IMPRESSION: 1. No acute intra-abdominal or intrapelvic abnormality identified, specifically no renal calculi or obstructive uropathy. 2. Small sliding-type hiatal hernia with mild wall thickening of the distal esophagus. 3. Colonic diverticulosis without diverticulitis. 4. Emphysema. 5. Additional findings as above. Electronically signed by: Vladimir Diaz M.D. 06/09/2018 7:22 AM Dictated Date/Time: 06/09/2018 7:12 AM
[2018-06-09 08:05] VITALS: BP 134/82; PULSE 75; TEMP 36.5; O2SAT 100
[2018-06-09] MEDS: SODIUM CHLORIDE 1 GM TAB PO SCH ×2 (08:39→21:08)
[2018-06-09 09:22] LABS: CALCIUM 8.3 mg/dl (8.5-10.1); CREATININE 0.67 mg/dl (0.60-1.20); POTASSIUM 4.2 mmol/L (3.5-5.1)
[2018-06-09] MEDS: SODIUM CHLORIDE 0.9% 1000ML 1,000 ML IV SCH ×2 (10:39→21:04)
[2018-06-09] MEDS: HYDROmorphone INJ 0.5 MG/0.5 ML SYR IV PRN ×2 (10:41→21:04)
--- NOTE | 2018-06-09 12:30 | Nephrology Consultation ---
Nephrology Consultation Date & Providers Date of Consultation: Jun 09, 2018. Primary Care Provider: Estefania Gtz M.D. Referring Provider: Reason for Consultation Hyponatremia History of Present Illness Elizabeth Avitia is a 58-year-old female with osteoporosis, DJD/OA and cervical radiculopathy, chronic NSAID use (meloxicam), hypertension (treated with losartan), chronic tobacco abuse and chronic lung disease. She is followed for pulmonary nodules. She follows with Dr. Atkins in the rheumatology clinic for osteoporosis. This is being treated with Reclast. The patient presented with worsening, chronic left lower back and flank pain. Etiology remains unclear. Laboratory studies on admission identified acute on chronic hyponatremia. The patient was found to be volume depleted. Baseline sodium 129-132 mmol/L per labs from November 2015. Serum sodium has corrected 3 mmol/L overnight (115-118) with saline and oral NaCl. Elizabeth reports some chronic fatigue but no recent changes. She denies weight loss. She has recent GI symptoms including poor appetite and diarrhea. She reports 2-3 loose bowel movements per day x several weeks. She denies melena or hematochezia. She denies abdominal pain. She denies fevers or chills or night sweats. Appetite is improving. She denies any Past Medical/Surgical History Medical: Osteoporosis Cervical radiculopathy OA/DJD Tobacco abuse Chronic lung disease Pulmonary nodules Hypertension Chronic hyponatremia Allergies Coded Allergies: Iodinated Diagnostic Agents (Unverified Allergy, Unknown, swelling, hives , 06/09/18) Inpatient Medications Current Inpatient Medications Medications (Trade) Dose Ordered Sig/Rivera Route Start Time Stop Time Status Last Admin Dose Admin Acetaminophen (Tylenol Tab) 650 mg Q4H PRN PO 06/09/18 00:30 07/09/18 00:29 Al Hydrox/Mg Hydrox/Simethicone (Maalox Max Susp) 15 ml Q4H PRN PO 06/09/18 00:30 07/09/18 00:29 Magnesium Hydroxide (Milk Of Magnesia Susp) 30 ml Q6H PRN PO 06/09/18 00:30 07/09/18 00:29 Polyethylene (Miralax Powder Packet) 17 gm DAILY PRN PO 06/09/18 00:30 07/09/18 00:29 Ondansetron HCl (Zofran Inj) 4 mg Q6H PRN IV 06/09/18 00:30 07/09/18 00:29 06/09/18 10:39 4 MG Morphine Sulfate (MoRPHine SULFATE INJ) 4 mg Q4HWA PRN IV 06/09/18 00:30 06/23/18 00:29 06/09/18 08:40 4 MG Ceftriaxone Sodium 1 gm/ Dextrose 50 ml @ 100 mls/hr Q24H IV 06/09/18 22:00 06/13/18 21:59 Sodium Chloride (Sodium Chloride Tab) 1 gm BID PO 06/09/18 08:00 07/09/18 07:59 06/09/18 08:39 1 GM Sodium Chloride 1,000 ml @ 100 mls/hr Q10H IV 06/09/18 09:30 07/09/18 09:29 06/09/18 10:39 100 MLS/HR Hydromorphone HCl (Dilaudid Inj) 1 mg Q4 PRN IV 06/09/18 10:15 06/23/18 10:14 06/09/18 10:41 1 MG Family History No pertinent family history Social History Smoking Status: Current Every Day Smoker Smokeless Tobacco Use: No Alcohol Use: none Drug Use: none Marital Status: in relationship Housing Status: lives with family Occupation: employed Review of Systems A complete review of systems was performed. Pertinent positives are noted above. All other systems are negative. Physical Exam Date Time Temp Pulse Resp B/P (MAP) Pulse Ox O2 Delivery O2 Flow Rate FiO2 06/09/18 08:40 Room Air 06/09/18 08:05 36.5 75 19 134/82 (99) 100 Room Air 06/09/18 01:50 36.5 84 18 163/74 100 Room Air 06/09/18 01:02 76 18 172/88 98 Room Air 06/09/18 00:15 69 22 163/97 06/08/18 23:00 70 22 143/86 06/08/18 22:30 77 22 136/78 100 Room Air 06/08/18 22:00 69 16 150/80 98 Room Air 06/08/18 21:22 72 06/08/18 21:10 79 28 154/90 98 Room Air 06/08/18 19:41 36.7 94 20 198/101 99 Room Air General Appearance: no apparent distress, + thin Head: normocephalic, atraumatic Eyes: normal inspection, sclerae normal ENT: normal ENT inspection, pharynx normal Neck: supple, no JVD Respiratory/Chest: lungs clear, no respiratory distress, no accessory muscle use Cardiovascular: regular rate, rhythm, no gallop Abdomen/GI: non tender, soft Back: normal inspection, no muscle spasm Neurologic/Psych: alert, normal mood/affect Laboratory Results Last 24 Hours Test 06/08/18 20:43 06/08/18 22:55 06/09/18 08:25 06/09/18 10:45 White Blood Count 6.35 K/uL Red Blood Count 3.83 M/uL Hemoglobin 12.9 g/dL Hematocrit 34.9 % Mean Corpuscular Volume 91.1 fL Mean Corpuscular Hemoglobin 33.7 pg Mean Corpuscular Hemoglobin Concent 37.0 g/dl Platelet Count 370 K/uL Mean Platelet Volume 7.9 fL Neutrophils (%) (Auto) 52.0 % Lymphocytes (%) (Auto) 34.6 % Monocytes (%) (Auto) 11.8 % Eosinophils (%) (Auto) 0.8 % Basophils (%) (Auto) 0.5 % Neutrophils # (Auto) 3.30 K/uL Lymphocytes # (Auto) 2.20 K/uL Monocytes # (Auto) 0.75 K/uL Eosinophils # (Auto) 0.05 K/uL Basophils # (Auto) 0.03 K/uL RDW Standard Deviation 40.9 fL RDW Coefficient of Variation 12.3 % Immature Granulocyte % (Auto) 0.3 % Immature Granulocyte # (Auto) 0.02 K/uL Sodium Level 115 mmol/L 118 mmol/L Potassium Level 4.7 mmol/L 4.2 mmol/L Chloride Level 83 mmol/L 88 mmol/L Carbon Dioxide Level 23 mmol/L 23 mmol/L Anion Gap 9.0 mmol/L 7.0 mmol/L Blood Urea Nitrogen 4 mg/dl 4 mg/dl Creatinine 0.67 mg/dl 0.67 mg/dl Est Creatinine Clear Calc Drug Dose 61.5 ml/min 61.2 ml/min Estimated GFR () 110.7 110.7 Estimated GFR (Non- 95.5 95.5 BUN/Creatinine Ratio 6.0 6.0 Random Glucose 89 mg/dl 104 mg/dl Osmolality 237 mOsm/kg Calcium Level 8.6 mg/dl 8.3 mg/dl Magnesium Level 2.0 mg/dl Total Bilirubin 0.6 mg/dl Direct Bilirubin 0.2 mg/dl Aspartate Amino Transf (AST/SGOT) 29 U/L Alanine Aminotransferase (ALT/SGPT) 24 U/L Alkaline Phosphatase 87 U/L Total Protein 7.3 gm/dl Albumin 4.0 gm/dl Lipase 129 U/L Thyroid Stimulating Hormone (TSH) 2.080 uIu/ml Hepatitis C Antibody NEG Urine Color YELLOW Urine Appearance CLOUDY Urine pH 5.5 Urine Specific [place] 1.011 Urine Protein NEG Urine Glucose (UA) NEG Urine Ketones TRACE Urine Occult Blood TRACE Urine Nitrite POS Urine Bilirubin NEG Urine Urobilinogen NEG Urine Leukocyte Esterase LARGE Urine WBC (Auto) >30 /hpf Urine RBC (Auto) 0-4 /hpf Urine Hyaline Casts (Auto) 1-5 /lpf Urine Epithelial Cells (Auto) 20-30 /lpf Urine Bacteria (Auto) 4+ Urine Osmolality 242 mOms/kg 161 mOms/kg Urine Random Sodium 29 mEq/L Impression (1) Hyponatremia Elizabeth presented with severe asymptomatic hyponatremia. This is acute on chronic. Baseline sodium >130 mmol/L. TSH was normal. The patient was volume depleted. Urine studies support this. Underlying SIADH suspected. Diarrhea improving. Tolerating IV saline and oral NaCl well. Appropriate improvement in Serum sodium overnight. Continue NACl @100 ml/hr with 1 gram oral BID. Will monitor metabolic profile TID today. Electrolytes otherwise have been found to be appropriate. Additional NSAID use avoided at this time.
[2018-06-09 14:42] VITALS: Ht 167.6 cm; Wt 43.7 kg
[2018-06-09 14:45] LABS: ALBUMIN 3.6 gm/dl (3.4-5.0); CALCIUM 8.6 mg/dl (8.5-10.1); CREATININE 0.66 mg/dl (0.60-1.20); PHOSPHORUS 2.3 mg/dl (2.5-4.9); POTASSIUM 4.2 mmol/L (3.5-5.1)
[2018-06-09 15:04] VITALS: BP 112/74; PULSE 68; TEMP 36.7; O2SAT 100
[2018-06-09] MEDS ORDERED: CYCLOBENZAPRINE HCL 10 MG TAB PO SCH (21:00)
[2018-06-09] MEDS: CEFTRIAXONE SOD INJ 1 GM in DEXTROSE 5% ADD-VANTAGE 50ML 50 ML IV SCH (21:07)
[2018-06-09] MEDS: GABAPENTIN 100 MG CAP PO SCH (21:08)
[2018-06-09 23:07] VITALS: BP 110/69; PULSE 79; TEMP 36.7; O2SAT 99
--- NOTE | 2018-06-09 23:10 | Progress Note ---
Subjective Date of Service: Jun 09, 2018. Subjective Pt evaluation today including: conversation w/ patient, conversation w/ family , physical exam, lab review, review of studies, review of inpatient medication list Pain: still with severe pain in left lower back PO Intake: adequate Voiding: no voiding problems reviewed labs and imaging no pathology on CT lumbar spine to explain severe back pain no findings on CT abdomen/pelvis patient said she was following with pain management as outpatient, they were considering injection discussed trying muscle relaxer, she liked the idea, said she had not been sleeping for days due to pain lab work shows sodium increasing to 121, then 122 treating with fluid restriction, NSS at 100cc/hr, ordered NaCl tabs but she vomited it up admits that she is urinating a lot despite not drinking much repeat urine osmolality down in 100's, less than serum osmolality discussed with Dr. Garrett, appreciate his input Problem List Medical Problems: (1) Back pain Status: Acute (2) Fall (on) (from) other stairs and steps, initial encounter Status: Acute (3) Hyponatremia Status: Acute Review of Systems Musculoskeletal: + joint pain (left lower back) Psychiatric: + insomnia (due to pain) All Other Systems: Reviewed and Negative Medications Current Inpatient Medications Medications (Trade) Dose Ordered Sig/Rivera Route Start Time Stop Time Status Last Admin Dose Admin Acetaminophen (Tylenol Tab) 650 mg Q4H PRN PO 06/09/18 00:30 07/09/18 00:29 Al Hydrox/Mg Hydrox/Simethicone (Maalox Max Susp) 15 ml Q4H PRN PO 06/09/18 00:30 07/09/18 00:29 Magnesium Hydroxide (Milk Of Magnesia Susp) 30 ml Q6H PRN PO 06/09/18 00:30 07/09/18 00:29 Polyethylene (Miralax Powder Packet) 17 gm DAILY PRN PO 06/09/18 00:30 07/09/18 00:29 Ondansetron HCl (Zofran Inj) 4 mg Q6H PRN IV 06/09/18 00:30 07/09/18 00:29 06/09/18 10:39 4 MG Morphine Sulfate (MoRPHine SULFATE INJ) 4 mg Q4HWA PRN IV 06/09/18 00:30 06/23/18 00:29 06/09/18 08:40 4 MG Ceftriaxone Sodium 1 gm/ Dextrose 50 ml @ 100 mls/hr Q24H IV 06/09/18 22:00 06/13/18 21:59 06/09/18 21:07 100 MLS/HR Sodium Chloride (Sodium Chloride Tab) 1 gm BID PO 06/09/18 08:00 07/09/18 07:59 06/09/18 21:08 1 GM Sodium Chloride 1,000 ml @ 100 mls/hr Q10H IV 06/09/18 09:30 07/09/18 09:29 06/09/18 21:04 100 MLS/HR Hydromorphone HCl (Dilaudid Inj) 1 mg Q4 PRN IV 06/09/18 10:15 06/23/18 10:14 06/09/18 21:04 1 MG Cyclobenzaprine HCl (Flexeril Tab) 10 mg HS PO 06/09/18 21:00 07/09/18 20:59 06/09/18 21:07 10 MG Gabapentin (Neurontin Cap) 100 mg BID PO 06/09/18 20:00 07/09/18 19:59 06/09/18 21:08 100 MG Objective Vital Signs Date Time Temp Pulse Resp B/P (MAP) Pulse Ox O2 Delivery O2 Flow Rate FiO2 06/09/18 15:04 36.7 68 17 112/74 (87) 100 Room Air 06/09/18 08:40 Room Air 06/09/18 08:05 36.5 75 19 134/82 (99) 100 Room Air 06/09/18 01:50 36.5 84 18 163/74 100 Room Air 06/09/18 01:02 76 18 172/88 98 Room Air 06/09/18 00:15 69 22 163/97 06/08/18 23:00 70 22 143/86 Physical Exam General Appearance: no apparent distress, + thin Eyes: normal inspection, EOMI, sclerae normal ENT: normal ENT inspection, hearing grossly normal, pharynx normal Neck: supple, no adenopathy, no JVD, trachea midline Respiratory/Chest: chest non-tender, lungs clear, normal breath sounds, no respiratory distress, no accessory muscle use Cardiovascular: regular rate, rhythm, no edema, no gallop, no JVD, no murmur Abdomen: normal bowel sounds, non tender, soft, no organomegaly Extremities: no pedal edema, no calf tenderness, normal capillary refill, pelvis stable, + pertinent finding (decreased ROM of lower back, tender in left paraspinal muscles, muscles very tight and ropey, no pain over spine) Neurologic/Psychiatric: 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 II-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 nml as tested, no motor/sensory deficits, alert, normal mood/affect, oriented x 3 Skin: normal color, warm/dry, no rash Laboratory Results Last 24 Hours Test 06/08/18 22:55 06/09/18 08:25 06/09/18 10:45 06/09/18 13:58 Urine Color YELLOW Urine Appearance CLOUDY Urine pH 5.5 Urine Specific [place] 1.011 Urine Protein NEG Urine Glucose (UA) NEG Urine Ketones TRACE Urine Occult Blood TRACE Urine Nitrite POS Urine Bilirubin NEG Urine Urobilinogen NEG Urine Leukocyte Esterase LARGE Urine WBC (Auto) >30 /hpf Urine RBC (Auto) 0-4 /hpf Urine Hyaline Casts (Auto) 1-5 /lpf Urine Epithelial Cells (Auto) 20-30 /lpf Urine Bacteria (Auto) 4+ Urine Osmolality 242 mOms/kg 161 mOms/kg Urine Random Sodium 29 mEq/L Sodium Level 118 mmol/L 121 mmol/L Potassium Level 4.2 mmol/L 4.2 mmol/L Chloride Level 88 mmol/L 87 mmol/L Carbon Dioxide Level 23 mmol/L 25 mmol/L Anion Gap 7.0 mmol/L 10.0 mmol/L Blood Urea Nitrogen 4 mg/dl 5 mg/dl Creatinine 0.67 mg/dl 0.66 mg/dl Est Creatinine Clear Calc Drug Dose 61.2 ml/min 62.1 ml/min Estimated GFR () 110.7 111.3 Estimated GFR (Non- 95.5 96.0 BUN/Creatinine Ratio 6.0 6.8 Random Glucose 104 mg/dl 109 mg/dl Calcium Level 8.3 mg/dl 8.6 mg/dl Phosphorus Level 2.3 mg/dl Albumin 3.6 gm/dl Test 06/09/18 18:52 Sodium Level 122 mmol/L Assessment and Plan 77 yo F h/o HTN on Losartan p/w worsening back pain , Left sided flank pain found to have UTI, Hyponatremia Acute on Chronic Back Pain, left sided CT lumbar spine not very impressive in terms of spinal process, only mild to moderate DDD patient has not had an MRI as outpatient on exam, left paraspinal muscles very tender and tightened will try Flexeril 10mg HS, continue Dilaudid IV PRN, add Neurontin 100mg BID consult pain management, patient reports she saw them as outpatient for this issue, was being evaluated for pain injection Hyponatremia acute on chronic issue, Na was 115 on admission treated with fluid restriction and NaCl tablets BID Na this AM was 118 urine osmolality was inappropriately high at 247 with a serum osmolality of 237 NSS at 100cc/hr added in the morning repeat Na levels 121 and then 122 urine osmolality down in 100's suggesting body now getting rid of free water to raise sodium follow sodium closely nephrology following, appreciate recommendations should no longer take Mobic which she was taking outpatient Possible UTI Positive UA with >30 WBC, however, there were 20-40 epithelial cells, no fever, normal WBC, no symptoms continue Rocephin for now, but if urine culture negative tomorrow would stop no kidney stone, no pyelonephritis on CT abdomen/pelvis Osteoarthritis hold Meloxicam indefinitely HTN holding Losartan for now, BP stable off of it DVT PPX: SCD's Code status: FULL Resuscitation
[2018-06-10] MEDS: SODIUM CHLORIDE 0.9% 1000ML 1,000 ML IV SCH (05:52)
[2018-06-10] MEDS: HYDROmorphone INJ 0.5 MG/0.5 ML SYR IV PRN ×2 (05:52→15:26)
[2018-06-10 07:22] VITALS: BP 104/64; PULSE 75; TEMP 36.8; O2SAT 92
[2018-06-10 07:47] LABS: BASO % 0.5 %; BASO ABS # 0.02 K/uL (0-0.2); EOS % 1.1 %; EOS ABS # 0.05 K/uL (0-0.5); HEMATOCRIT 27.9 % (37-47); HEMOGLOBIN 9.8 g/dL (12.0-16.0); LYMPH % 28.2 %; LYMPH ABS # 1.24 K/uL (1.2-3.4); MEAN CELL VOLUME 94.9 fL (80-100); MEAN CORPUSCULAR HEMOGLOBIN 33.3 pg (25-34); MEAN CORPUSCULAR HGB CONC 35.1 g/dl (32-36); MEAN PLATELET VOLUME 7.8 fL (7.4-10.4); MONO % 15.9 %; NEUT % 54.3 %; NEUT ABS # 2.38 K/uL (1.4-6.5); PLATELET COUNT 278 K/uL (130-400); RED CELL DISTRIBUTION WIDTH CV 12.9 % (11.5-14.5); RED CELL DISTRIBUTION WIDTH SD 44.6 fL (36.4-46.3); WHITE BLOOD COUNT 4.39 K/uL (4.8-10.8)
[2018-06-10 08:02] LABS: CALCIUM 7.1 mg/dl (8.5-10.1); CREATININE 0.57 mg/dl (0.60-1.20); POTASSIUM 4.2 mmol/L (3.5-5.1)
[2018-06-10] MEDS: GABAPENTIN 100 MG CAP PO SCH ×2 (08:33→19:23)
[2018-06-10] MEDS: SODIUM CHLORIDE 1 GM TAB PO SCH (08:33)
[2018-06-10] MEDS ORDERED: METHYLPREDNISOLONE 4MG TAB, 6 DAY TAPER PO SCH (09:30)
--- NOTE | 2018-06-10 09:51 | Nephrology Progress Note ---
Nephrology Progress Note Date of Service Jun 10, 2018. Chief Complaint Hyponatremia Subjective No acute events overnight. Appetite improved slightly. Vomiting NaCl tablet yesterday. No diarrhea. Reports some constipation. Elizabeth now endorses some intermittent vomiting at home. She notes that she has some mild persistent nausea. Some improvement with muscle relaxant overnight. No fevers or chills. No headache. Review of Systems A complete review of systems was performed. Pertinent positives are noted above. All other systems are negative. Vital Signs Last 8 Hrs Date Time Temp Pulse Resp B/P (MAP) Pulse Ox O2 Delivery O2 Flow Rate FiO2 06/10/18 08:30 Room Air 06/10/18 07:22 36.8 75 18 104/64 (77) 92 Room Air Last Recorded Weight Weight (Kilograms): 43.200 Physical Exam General Appearance: no apparent distress, + thin Head: normocephalic, atraumatic Eyes: normal inspection, sclerae normal ENT: normal ENT inspection, pharynx normal Neck: supple, no JVD Respiratory/Chest: lungs clear, no respiratory distress, no accessory muscle use Cardiovascular: regular rate, rhythm, no gallop Back: no CVA tenderness Abdomen/GI: non tender, soft Extremities/Musculoskelatal: normal inspection, no pedal edema Neurologic/Psych: alert, normal mood/affect Family History No pertinent family history Social History Smoking Status: Current every day smoker Smokeless Tobacco Use: No Alcohol Use: none Drug Use: none Marital Status: in relationship Housing Status: lives with family Occupation: employed Laboratory Results Past 24 Hours 06/10/18 07:12 Red Blood Count 2.94, Mean Corpuscular Volume 94.9, Mean Corpuscular Hemoglobin 33.3, Mean Corpuscular Hemoglobin Concent 35.1, Mean Platelet Volume 7.8, Neutrophils (%) (Auto) 54.3, Lymphocytes (%) (Auto) 28.2, Monocytes (%) (Auto) 15.9, Eosinophils (%) (Auto) 1.1, Basophils (%) (Auto) 0.5, Neutrophils # (Auto ) 2.38, Lymphocytes # (Auto) 1.24, Monocytes # (Auto) 0.70, Eosinophils # (Auto ) 0.05, Basophils # (Auto) 0.02 06/09/18 13:58 06/09/18 18:52 06/10/18 07:12 Test 06/09/18 10:45 06/09/18 13:58 06/10/18 07:12 Urine Osmolality 161 mOms/kg (500-800) Anion Gap 10.0 mmol/L (3-11) 6.0 mmol/L (3-11) Est Creatinine Clear Calc Drug Dose 62.1 ml/min 71.6 ml/min Estimated GFR () 111.3 116.8 Estimated GFR (Non- 96.0 100.8 BUN/Creatinine Ratio 6.8 (10-20) 4.5 (10-20) Calcium Level 8.6 mg/dl (8.5-10.1) 7.1 mg/dl (8.5-10.1) Phosphorus Level 2.3 mg/dl (2.5-4.9) Albumin 3.6 gm/dl (3.4-5.0) White Blood Count 4.39 K/uL (4.8-10.8) Red Blood Count 2.94 M/uL (4.2-5.4) Hemoglobin 9.8 g/dL (12.0-16.0) Hematocrit 27.9 % (37-47) Mean Corpuscular Volume 94.9 fL (80-100) Mean Corpuscular Hemoglobin 33.3 pg (25-34) Mean Corpuscular Hemoglobin Concent 35.1 g/dl (32-36) Platelet Count 278 K/uL (130-400) Mean Platelet Volume 7.8 fL (7.4-10.4) Neutrophils (%) (Auto) 54.3 % Lymphocytes (%) (Auto) 28.2 % Monocytes (%) (Auto) 15.9 % Eosinophils (%) (Auto) 1.1 % Basophils (%) (Auto) 0.5 % Neutrophils # (Auto) 2.38 K/uL (1.4-6.5) Lymphocytes # (Auto) 1.24 K/uL (1.2-3.4) Monocytes # (Auto) 0.70 K/uL (0.11-0.59) Eosinophils # (Auto) 0.05 K/uL (0-0.5) Basophils # (Auto) 0.02 K/uL (0-0.2) RDW Standard Deviation 44.6 fL (36.4-46.3) RDW Coefficient of Variation 12.9 % (11.5-14.5) Immature Granulocyte % (Auto) 0.0 % Immature Granulocyte # (Auto) 0.00 K/uL (0.00-0.02) Allergies Coded Allergies: Iodinated Diagnostic Agents (Unverified Allergy, Unknown, swelling, hives , 06/09/18) Medications Current Inpatient Medications Medications (Trade) Dose Ordered Sig/Rivera Route Start Time Stop Time Status Last Admin Dose Admin Acetaminophen (Tylenol Tab) 650 mg Q4H PRN PO 06/09/18 00:30 07/09/18 00:29 Al Hydrox/Mg Hydrox/Simethicone (Maalox Max Susp) 15 ml Q4H PRN PO 06/09/18 00:30 07/09/18 00:29 Magnesium Hydroxide (Milk Of Magnesia Susp) 30 ml Q6H PRN PO 06/09/18 00:30 07/09/18 00:29 Polyethylene (Miralax Powder Packet) 17 gm DAILY PRN PO 06/09/18 00:30 07/09/18 00:29 Ondansetron HCl (Zofran Inj) 4 mg Q6H PRN IV 06/09/18 00:30 07/09/18 00:29 06/09/18 10:39 4 MG Ceftriaxone Sodium 1 gm/ Dextrose 50 ml @ 100 mls/hr Q24H IV 06/09/18 22:00 06/13/18 21:59 06/09/18 21:07 100 MLS/HR Sodium Chloride (Sodium Chloride Tab) 1 gm BID PO 06/09/18 08:00 07/09/18 07:59 06/10/18 08:33 1 GM Sodium Chloride 1,000 ml @ 100 mls/hr Q10H IV 06/09/18 09:30 07/09/18 09:29 06/10/18 05:52 100 MLS/HR Hydromorphone HCl (Dilaudid Inj) 1 mg Q4 PRN IV 06/09/18 10:15 06/23/18 10:14 06/10/18 05:52 1 MG Gabapentin (Neurontin Cap) 100 mg BID PO 06/09/18 20:00 07/09/18 19:59 06/10/18 08:33 100 MG Cyclobenzaprine HCl (Flexeril Tab) 10 mg BID PO 06/10/18 20:00 07/09/18 20:59 UNV Methylprednisolone (Medrol Dosepak 4mg Tab, 6 Day Taper) 1 ea UD PO 06/10/18 09:30 07/10/18 09:29 UNV Impression (1) Hyponatremia Elizabeth presented with severe asymptomatic hyponatremia. This is acute on chronic. Baseline sodium ~130 mmol/L. TSH was normal. Sodium corrected to baseline with IV saline and oral NaCl. Appetite is reported as good. The patient endorses decreased intake some intermittent vomiting and diarrhea. Clinical presentation is consistent with hypovolemic hyponatremia and poor solute intake/GI losses. ADH autocorrelation occurred with church of intravascular volume consistent with this -- manifested by improving urine osmolality. At this time, BP and volume status are appropriate. IV saline and oral NaCl can be stopped with monitoring. Oral solute intake is encouraged. I would continue to avoid NSAIDS at this time. A repeat sodium level will be checked this afternoon.
--- NOTE | 2018-06-10 09:54 | Pain Management Consultation ---
Pain Management Consultation Date of Consultation Jun 10, 2018. Reason for Consultation Low back pain Pain Location 1 - History This is a 58 year old white female that is being seen in the [facility] for acute left low back pain. Patient states that the pain has been ongoing for greater than one year. She has been seen in the [facility] on 07/15/17 and a left SI joint injection was recommended. Due to her insurance, she had to complete physical therapy for the procedure to be approved. Patient did not want to do physical therapy for the low back as she did physical therapy for her neck earlier that year. She states that the pain is 100% axial, no radicular symptoms. The pain is aggravated with laying supine and going from supine to sitting position. Pain has been increased over the last two weeks without any known injury or overuse. She has been placed on Flexeril 10mg QHS and Gabapentin 100mg BID which she states is slightly efficacious. IV Dilaudid PRN breakthrough pain is effective. No bowel/bladder incontinence, saddle anesthesia, footdrop, leg weakness, falls. Case discussed with Dr. Yolanda Palumbo Past Medical: Hypertension, osteoporosis, hyponatremia Past Surgical: Left wrist ORIF Family History No pertinent family history Social / Work History Smokeless Tobacco Use: No Alcohol Use: none Marital Status: in relationship Housing Status: lives with family Occupation: employed ([employer] at the [employer] 20 years) Allergies Coded Allergies: Iodinated Diagnostic Agents (Unverified Allergy, Unknown, swelling, hives , 06/09/18) Medications Current Inpatient Medications Medications (Trade) Dose Ordered Sig/Rivera Route Start Time Stop Time Status Last Admin Dose Admin Acetaminophen (Tylenol Tab) 650 mg Q4H PRN PO 06/09/18 00:30 07/09/18 00:29 Al Hydrox/Mg Hydrox/Simethicone (Maalox Max Susp) 15 ml Q4H PRN PO 06/09/18 00:30 07/09/18 00:29 Magnesium Hydroxide (Milk Of Magnesia Susp) 30 ml Q6H PRN PO 06/09/18 00:30 07/09/18 00:29 Polyethylene (Miralax Powder Packet) 17 gm DAILY PRN PO 06/09/18 00:30 07/09/18 00:29 Ondansetron HCl (Zofran Inj) 4 mg Q6H PRN IV 06/09/18 00:30 07/09/18 00:29 06/09/18 10:39 4 MG Morphine Sulfate (MoRPHine SULFATE INJ) 4 mg Q4HWA PRN IV 06/09/18 00:30 06/23/18 00:29 06/09/18 08:40 4 MG Ceftriaxone Sodium 1 gm/ Dextrose 50 ml @ 100 mls/hr Q24H IV 06/09/18 22:00 06/13/18 21:59 06/09/18 21:07 100 MLS/HR Sodium Chloride (Sodium Chloride Tab) 1 gm BID PO 06/09/18 08:00 07/09/18 07:59 06/10/18 08:33 1 GM Sodium Chloride 1,000 ml @ 100 mls/hr Q10H IV 06/09/18 09:30 07/09/18 09:29 06/10/18 05:52 100 MLS/HR Hydromorphone HCl (Dilaudid Inj) 1 mg Q4 PRN IV 06/09/18 10:15 06/23/18 10:14 06/10/18 05:52 1 MG Cyclobenzaprine HCl (Flexeril Tab) 10 mg HS PO 06/09/18 21:00 07/09/18 20:59 06/09/18 21:07 10 MG Gabapentin (Neurontin Cap) 100 mg BID PO 06/09/18 20:00 07/09/18 19:59 06/10/18 08:33 100 MG Review of Systems Denies complaints related to 10 point organ system review. Physical Exam Height & Weight: Height 5 feet, 6.00 inches. Weight 43.200 (Kilograms) 95 (Pounds) Last Vital Signs Documentation Date Time Temp Pulse Resp B/P (MAP) Pulse Ox O2 Delivery O2 Flow Rate FiO2 06/10/18 07:22 36.8 75 18 104/64 (77) 92 Room Air Exam: GENERAL: Ms. Avitia is a 58 y/o white female that appears thin and frail. Speech and cognition is intact. Mood and affect is appropriate. In no acute distress. Making positional changes without difficulty. HEAD: Normocephalic; atraumatic. EYES: Pupils are round, equal, and reactive to light; EOM intact. ENT: No external ear discharge or lesions. No rhinorrhea or epistaxis. No mucosal lesions. CHEST: Regular chest respiration and excursion. EXTREMITIES: 5/5 strength of the bilateral lower extremities. Sensation is equal and intact bilaterally. LONG and [place] testing positive on the left, negative on the right. BACK: Full ROM. No midline or facet tenderness. Negative straight leg raise bilaterally. There is focal tenderness at the left SI joint. No tenderness of the right SI joint. There is mild left superior gluteal and inferior quadratus lumborum muscle spasm noted without trigger points. NEURO: CN II-XII grossly intact with no focal deficits noted. SKIN: No lesions, erythema, or rashes noted. Laboratory Laboratory Results (Last CBC): 06/10/18 07:12 Red Blood Count 2.94 L, Mean Corpuscular Volume 94.9, Mean Corpuscular Hemoglobin 33.3, Mean Corpuscular Hemoglobin Concent 35.1, Mean Platelet Volume 7.8, Neutrophils (%) (Auto) 54.3, Lymphocytes (%) (Auto) 28.2, Monocytes (%) ( Auto) 15.9, Eosinophils (%) (Auto) 1.1, Basophils (%) (Auto) 0.5, Neutrophils # (Auto) 2.38, Lymphocytes # (Auto) 1.24, Monocytes # (Auto) 0.70 H, Eosinophils # (Auto) 0.05, Basophils # (Auto) 0.[address] Findings LUMBAR SPINE WITHOUT CT DOSE: 283.64 mGy.cm HISTORY: Pain lower back pain TECHNIQUE: Multiaxial CT images of the lumbar spine were performed and reformatted in the sagittal and coronal plane without the use of contrast. A dose lowering technique was utilized adhering to the principles of ALARA. COMPARISON: None. FINDINGS: No fractures. No subluxation. Paraspinal soft tissues are unremarkable. Minimal disc changes throughout. Mild osteophytes throughout. No significant compromise of spinal canal based on this modality IMPRESSION: Minimal to mild degenerative disc change. No significant component of spinal stenosis. No acute process. The above report was generated using voice recognition software. It may contain grammatical, syntax or spelling errors. Electronically signed by: Karl Diaz M.D. 06/08/2018 8:56 PM Dictated Date/Time: 06/08/2018 8:54 PM Assessment 1. Sacroiliitis 2. Myofascial pain 3. Osteoporosis 4. Hyponatremia Recommendations 1. Initiate Medrol Dose Juan Manuel 2. Increase Flexeril to 10mg BID 3. Continue Gabapentin 100mg BID 4. Recommend physical therapy 5. Patient is welcome to return to our office should she be interested in a left SI joint injection. She is aware she would need to do a formal course of physical therapy prior to it being performed. She is hesitant towards doing a course of physical therapy at this time. 6. Morphine IV was discontinued as it was not previously effective towards diminishing her pain
[2018-06-10] MEDS: METHYLPREDNISOLONE 4 MG TAB PO SCH ×2 (12:18→18:20)
[2018-06-10 14:49] VITALS: BP 113/70; PULSE 79; TEMP 36.8; O2SAT 98
[2018-06-10 16:03] VITALS: O2SAT 98
--- NOTE | 2018-06-10 18:36 | Hospitalist Progress Note ---
Hospitalist Progress Note Date of Service Jun 10, 2018. Subjective Pt evaluation today including: conversation w/ patient Patient reports no further nausea vomiting today since stopping the morphine. Still with significant left lower back pain but improved from admission. Constitutional: No fever Respiratory: No shortness of breath Cardiovascular: No chest pain Abdomen: No pain Neurologic: + numbness/tingling (Occasionally down her left leg) All Other Systems: Reviewed and Negative Objective Vital Signs Date Time Temp Pulse Resp B/P (MAP) Pulse Ox O2 Delivery O2 Flow Rate FiO2 06/10/18 16:03 98 Room Air 06/10/18 14:49 36.8 79 20 113/70 (84) 98 06/10/18 08:30 Room Air 06/10/18 07:22 36.8 75 18 104/64 (77) 92 Room Air 06/09/18 23:07 36.7 79 18 110/69 (83) 99 Room Air 06/09/18 20:05 Room Air Physical Exam General Appearance: no apparent distress, + thin Eyes: normal inspection, sclerae normal ENT: hearing grossly normal Neck: trachea midline Respiratory/Chest: no respiratory distress, no accessory muscle use, + decreased breath sounds (Diminished throughout) Cardiovascular: regular rate, rhythm, no edema, no murmur Abdomen: normal bowel sounds, non tender, soft Extremities: non-tender, normal inspection, no pedal edema, no calf tenderness , + pertinent finding (Positive tenderness palpation of the left lumbar paraspinous muscles) Neurologic/Psychiatric: alert, normal mood/affect, oriented x 3 Skin: normal color, warm/dry, no rash Laboratory Results Last 24 Hours Test 06/09/18 18:52 06/10/18 07:12 Sodium Level 122 mmol/L 131 mmol/L White Blood Count 4.39 K/uL Red Blood Count 2.94 M/uL Hemoglobin 9.8 g/dL Hematocrit 27.9 % Mean Corpuscular Volume 94.9 fL Mean Corpuscular Hemoglobin 33.3 pg Mean Corpuscular Hemoglobin Concent 35.1 g/dl Platelet Count 278 K/uL Mean Platelet Volume 7.8 fL Neutrophils (%) (Auto) 54.3 % Lymphocytes (%) (Auto) 28.2 % Monocytes (%) (Auto) 15.9 % Eosinophils (%) (Auto) 1.1 % Basophils (%) (Auto) 0.5 % Neutrophils # (Auto) 2.38 K/uL Lymphocytes # (Auto) 1.24 K/uL Monocytes # (Auto) 0.70 K/uL Eosinophils # (Auto) 0.05 K/uL Basophils # (Auto) 0.02 K/uL RDW Standard Deviation 44.6 fL RDW Coefficient of Variation 12.9 % Immature Granulocyte % (Auto) 0.0 % Immature Granulocyte # (Auto) 0.00 K/uL Potassium Level 4.2 mmol/L Chloride Level 102 mmol/L Carbon Dioxide Level 23 mmol/L Anion Gap 6.0 mmol/L Blood Urea Nitrogen 3 mg/dl Creatinine 0.57 mg/dl Est Creatinine Clear Calc Drug Dose 71.6 ml/min Estimated GFR () 116.8 Estimated GFR (Non- 100.8 BUN/Creatinine Ratio 4.5 Random Glucose 88 mg/dl Calcium Level 7.1 mg/dl Assessment and Plan This patient is a 58 yo F h/o HTN, osteoporosis, OA, pulmonary nodules, current smoker, who p/w worsening acute on chronic left lower back pain and persistent nausea and vomiting. She was found to be significantly hyponatremic on admission with sodium of 115. Acute on Chronic lower back Pain, left sided-improved from admission CT lumbar spine not very impressive in terms of spinal process, only mild to moderate DDD patient has not had an MRI as outpatient, but does not have significant radicular symptoms on exam, left paraspinal muscles very tender and tightened Appreciate pain management consultation-changes made as below, and recommend formal physical therapy course prior to approval by her insurance for SI joint injection in the future Increase Flexeril 10mg 2 twice daily, continue Dilaudid IV PRN, added Neurontin 100mg BID -Pain management ordered Medrol Dosepak Hyponatremia-hypotonic, hypovolemic acute on chronic issue, Na was 115 on admission treated with fluid restriction and NaCl tablets BID, however was likely due to GI losses and hypovolemia so fluid restriction is now lifted-was then placed on normal saline at 100 ML's per hour Na this AM was back to her baseline at 131 urine osmolality initially was inappropriately high at 247 with a serum osmolality of 237; urine osmolality now decreased to 161 and sodium levels are rising urine osmolality down in 100's suggesting body now getting rid of free water to raise sodium Appreciate nephrology consultation -Check BMP in the morning and if stable, can discharged home -DC'd IV fluids should no longer take Mobic or any other NSAIDs which she was taking outpatient Possible UTI Positive UA with >30 WBC, however, there were 20-40 epithelial cells, no fever, normal WBC, no symptoms. Urine culture with gram-negative rods growing, ID pending continue Rocephin for now and will likely switch to p.o. antibiotics tomorrow after urine culture identification is completed-would only do 3 days total antibiotics no kidney stone, no pyelonephritis on CT abdomen/pelvis Osteoarthritis hold Meloxicam indefinitely HTN holding Losartan for now, BP stable off of it DVT PPX: SCD's Code status: FULL Resuscitation Disposition-likely to home tomorrow
[2018-06-10] MEDS: CYCLOBENZAPRINE HCL 10 MG TAB PO SCH (19:22)
[2018-06-10] MEDS ORDERED: METHYLPREDNISOLONE 4 MG TAB PO SCH (21:00)
[2018-06-10] MEDS: CEFTRIAXONE SOD INJ 1 GM in DEXTROSE 5% ADD-VANTAGE 50ML 50 ML IV SCH (21:55)
[2018-06-10 23:06] VITALS: BP_SYST 130; BP_SYST 169; BP_DIAS 70; BP_DIAS 83; PULSE 76; TEMP 36.7; O2SAT 100
[2018-06-11 06:47] LABS: BASO % 0.3 %; BASO ABS # 0.01 K/uL (0-0.2); HEMATOCRIT 29.4 % (37-47); HEMOGLOBIN 10.2 g/dL (12.0-16.0); IG# 0.01 K/uL (0.00-0.02); LYMPH % 17.1 %; LYMPH ABS # 0.68 K/uL (1.2-3.4); MEAN CELL VOLUME 95.8 fL (80-100); MEAN CORPUSCULAR HEMOGLOBIN 33.2 pg (25-34); MEAN CORPUSCULAR HGB CONC 34.7 g/dl (32-36); MEAN PLATELET VOLUME 7.8 fL (7.4-10.4); MONO % 10.8 %; MONO ABS # 0.43 K/uL (0.11-0.59); NEUT % 71.5 %; NEUT ABS # 2.85 K/uL (1.4-6.5); PLATELET COUNT 324 K/uL (130-400); RED CELL DISTRIBUTION WIDTH CV 12.7 % (11.5-14.5); RED CELL DISTRIBUTION WIDTH SD 44.1 fL (36.4-46.3); WHITE BLOOD COUNT 3.98 K/uL (4.8-10.8)
[2018-06-11 06:58] VITALS: BP 120/68; PULSE 81; TEMP 36.3; O2SAT 99
[2018-06-11 07:23] LABS: CALCIUM 8.3 mg/dl (8.5-10.1); CREATININE 0.72 mg/dl (0.60-1.20); POTASSIUM 3.8 mmol/L (3.5-5.1)
[2018-06-11 08:30] VITALS: O2SAT 99
[2018-06-11] MEDS: CYCLOBENZAPRINE HCL 10 MG TAB PO SCH (08:30)
[2018-06-11] MEDS: GABAPENTIN 100 MG CAP PO SCH (08:30)
[2018-06-11] MEDS: METHYLPREDNISOLONE 4 MG TAB PO SCH ×2 (09:53→15:15)
--- NOTE | 2018-06-11 10:06 | Nephrology Progress Note ---
Nephrology Progress Note Date of Service Jun 11, 2018. Chief Complaint Hyponatremia Subjective No acute events overnight. Elizabeth feels well this morning. She notes reasonable control of back pain. Appetite is improving. Review of Systems A complete review of systems was performed. Pertinent positives are noted above. All other systems are negative. Vital Signs Last 8 Hrs Date Time Temp Pulse Resp B/P (MAP) Pulse Ox O2 Delivery O2 Flow Rate FiO2 06/11/18 06:58 36.3 81 20 120/68 (85) 99 Room Air Last Recorded Weight Weight (Kilograms): 43.700 Physical Exam General Appearance: no apparent distress, + thin Head: normocephalic, atraumatic Eyes: normal inspection, sclerae normal ENT: normal ENT inspection, pharynx normal Neck: supple, no JVD Respiratory/Chest: lungs clear, no respiratory distress, no accessory muscle use Cardiovascular: regular rate, rhythm Back: no CVA tenderness Abdomen/GI: non tender, soft Extremities/Musculoskelatal: normal inspection, no pedal edema Neurologic/Psych: alert, normal mood/affect Family History No pertinent family history Social History Smoking Status: Current every day smoker Smokeless Tobacco Use: No Alcohol Use: none Drug Use: none Marital Status: in relationship Housing Status: lives with family 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) Laboratory Results Past 24 Hours 06/11/18 06:36 Red Blood Count 3.07, Mean Corpuscular Volume 95.8, Mean Corpuscular Hemoglobin 33.2, Mean Corpuscular Hemoglobin Concent 34.7, Mean Platelet Volume 7.8, Neutrophils (%) (Auto) 71.5, Lymphocytes (%) (Auto) 17.1, Monocytes (%) (Auto) 10.8, Eosinophils (%) (Auto) 0.0, Basophils (%) (Auto) 0.3, Neutrophils # (Auto ) 2.85, Lymphocytes # (Auto) 0.68, Monocytes # (Auto) 0.43, Eosinophils # (Auto ) 0.00, Basophils # (Auto) 0.01 06/11/18 06:36 Test 06/11/18 06:36 White Blood Count 3.98 K/uL (4.8-10.8) Red Blood Count 3.07 M/uL (4.2-5.4) Hemoglobin 10.2 g/dL (12.0-16.0) Hematocrit 29.4 % (37-47) Mean Corpuscular Volume 95.8 fL (80-100) Mean Corpuscular Hemoglobin 33.2 pg (25-34) Mean Corpuscular Hemoglobin Concent 34.7 g/dl (32-36) Platelet Count 324 K/uL (130-400) Mean Platelet Volume 7.8 fL (7.4-10.4) Neutrophils (%) (Auto) 71.5 % Lymphocytes (%) (Auto) 17.1 % Monocytes (%) (Auto) 10.8 % Eosinophils (%) (Auto) 0.0 % Basophils (%) (Auto) 0.3 % Neutrophils # (Auto) 2.85 K/uL (1.4-6.5) Lymphocytes # (Auto) 0.68 K/uL (1.2-3.4) Monocytes # (Auto) 0.43 K/uL (0.11-0.59) Eosinophils # (Auto) 0.00 K/uL (0-0.5) Basophils # (Auto) 0.01 K/uL (0-0.2) RDW Standard Deviation 44.1 fL (36.4-46.3) RDW Coefficient of Variation 12.7 % (11.5-14.5) Immature Granulocyte % (Auto) 0.3 % Immature Granulocyte # (Auto) 0.01 K/uL (0.00-0.02) Anion Gap 7.0 mmol/L (3-11) Est Creatinine Clear Calc Drug Dose 57.3 ml/min Estimated GFR () 105.5 Estimated GFR (Non- 91.0 BUN/Creatinine Ratio 4.2 (10-20) Calcium Level 8.3 mg/dl (8.5-10.1) Allergies Coded Allergies: Iodinated Diagnostic Agents (Unverified Allergy, Unknown, swelling, hives , 06/09/18) Medications Current Inpatient Medications Medications (Trade) Dose Ordered Sig/Rivera Route Start Time Stop Time Status Last Admin Dose Admin Acetaminophen (Tylenol Tab) 650 mg Q4H PRN PO 06/09/18 00:30 07/09/18 00:29 Al Hydrox/Mg Hydrox/Simethicone (Maalox Max Susp) 15 ml Q4H PRN PO 06/09/18 00:30 07/09/18 00:29 Magnesium Hydroxide (Milk Of Magnesia Susp) 30 ml Q6H PRN PO 06/09/18 00:30 07/09/18 00:29 Polyethylene (Miralax Powder Packet) 17 gm DAILY PRN PO 06/09/18 00:30 07/09/18 00:29 Ondansetron HCl (Zofran Inj) 4 mg Q6H PRN IV 06/09/18 00:30 07/09/18 00:29 06/09/18 10:39 4 MG Ceftriaxone Sodium 1 gm/ Dextrose 50 ml @ 100 mls/hr Q24H IV 06/09/18 22:00 06/13/18 21:59 06/10/18 21:55 100 MLS/HR Hydromorphone HCl (Dilaudid Inj) 1 mg Q4 PRN IV 06/09/18 10:15 06/23/18 10:14 06/10/18 15:26 1 MG Gabapentin (Neurontin Cap) 100 mg BID PO 06/09/18 20:00 07/09/18 19:59 06/11/18 08:30 100 MG Cyclobenzaprine HCl (Flexeril Tab) 10 mg BID PO 06/10/18 20:00 07/09/18 20:59 06/11/18 08:30 10 MG Methylprednisolone (Medrol Tab) 4 mg 07,13,18 PO 06/11/18 07:00 06/11/18 18:01 Methylprednisolone (Medrol Tab) 8 mg HS PO 06/11/18 21:00 06/11/18 21:01 Methylprednisolone (Medrol Tab) 4 mg 07,13,18,21 PO 06/12/18 07:00 06/12/18 21:01 Methylprednisolone (Medrol Tab) 4 mg 07,13,21 PO 06/13/18 07:00 06/13/18 21:01 Methylprednisolone (Medrol Tab) 4 mg 07,21 PO 06/14/18 07:00 06/14/18 21:01 Methylprednisolone (Medrol Tab) 4 mg 07 PO 06/15/18 07:00 06/15/18 07:01 Impression (1) Hyponatremia Elizabeth presented with severe hyponatremia. Dysnatremia is acute on chronic. Baseline sodium ~130 mmol/L. TSH normal. Clinical history suggestive of reset osmostat with evidence of poor solute intake/poor nutrition also present. Sodium corrected to baseline with IV saline and oral NaCl. Urine osmolality improved consistent with decreased EAV or reset osmostat. Repeat urine osmolality has been requested for this morning. Appetite is reported as improving. no additional GI losses from vomiting or diarrhea in past 2 days. Adequate nutrition including good solute/protein intake is strongly encouraged. At this time, BP and volume status are appropriate. IV saline has been stopped. Oral NaCl can be restarted with close monitoring. I asked Elizabeth to resume 1 gram BID. I also asked Elizabeth to maintain a daily fluid intake <1.5 L. I will recheck a metabolic profile within 1 week. Follow up in the clinic has been requested for 2 weeks. Plan of care was discussed with Dr. Cunningham.
[2018-06-11 14:53] VITALS: BP 137/85; PULSE 83; TEMP 36.8; O2SAT 100
[2018-06-11] MEDS ORDERED: ACET-1047 PO (16:06)
[2018-06-11] MEDS ORDERED: METH4PAK PO (16:06)
[2018-06-11] MEDS ORDERED: FLX10 PO (16:06)
[2018-06-11] MEDS ORDERED: SDMC1 PO (16:06)
[2018-06-11] MEDS ORDERED: CEPH-571 PO (16:06)
[2018-06-11] MEDS ORDERED: NRN100 PO (16:06)
--- NOTE | 2018-06-11 16:13 | Discharge Instructions ---
Discharge Instructions Date of Service Jun 11, 2018. Admission Reason for Admission: Intractable back pain, hyponatremia Discharge Discharge Diagnosis / Problem: Intractable back pain, hyponatremia, UTI Discharge Goals Goal(s): Improve disease control, Diagnostic testing, Therapeutic intervention Activity Recommendations Activity Limitations: as noted below Exercise/Sports Limitations: gradually increase as tolerated Shower/Bathe: no limitations Driving or Machine Use: no limitations . Instructions / Follow-Up Instructions / Follow-Up You were admitted for severe lower back pain causing nausea and vomiting which led to dehydration. Your sodium levels were severely low. You were treated with IV fluids and salt tablets. Please continue the salt tablets twice daily and limit your fluid intake to 1500 ML's per day. You should not take any NSAIDs such as Mobic, ibuprofen, Motrin, Advil, Aleve, naproxen, etc. As these can worsen your kidney function and low sodium levels. Please finish out 1 more day of the antibiotic for your urinary tract infection. For your lower back pain, you were started on a Medrol Dosepak of steroids as well as Flexeril and gabapentin-these will all help with your pain. You should also follow-up with your family doctor to get a referral for outpatient physical therapy. Please have your blood work drawn in 1 week and follow-up with nephrology (the kidney doctor) in 2 weeks as scheduled for you. Please also follow-up with your family doctor within 1 week as scheduled for you. The single most important thing you can do for her health is to quit smoking immediately. Please talk to your family doctor about ways to help you do this. Current Hospital Diet Patient's current hospital diet: Regular Diet Discharge Diet Recommended Diet: Regular Diet Fluid Restriction: 1500 ml (6 cups) Procedures Procedures Performed: CT chest CT abdomen/pelvis Lumbar spine CT Pending Studies Studies pending at discharge: yes List of pending studies: Final blood culture result Laboratory Results Last 24 Hours Test 06/11/18 06:36 06/11/18 10:20 White Blood Count 3.98 K/uL Red Blood Count 3.07 M/uL Hemoglobin 10.2 g/dL Hematocrit 29.4 % Mean Corpuscular Volume 95.8 fL Mean Corpuscular Hemoglobin 33.2 pg Mean Corpuscular Hemoglobin Concent 34.7 g/dl Platelet Count 324 K/uL Mean Platelet Volume 7.8 fL Neutrophils (%) (Auto) 71.5 % Lymphocytes (%) (Auto) 17.1 % Monocytes (%) (Auto) 10.8 % Eosinophils (%) (Auto) 0.0 % Basophils (%) (Auto) 0.3 % Neutrophils # (Auto) 2.85 K/uL Lymphocytes # (Auto) 0.68 K/uL Monocytes # (Auto) 0.43 K/uL Eosinophils # (Auto) 0.00 K/uL Basophils # (Auto) 0.01 K/uL RDW Standard Deviation 44.1 fL RDW Coefficient of Variation 12.7 % Immature Granulocyte % (Auto) 0.3 % Immature Granulocyte # (Auto) 0.01 K/uL Sodium Level 129 mmol/L Potassium Level 3.8 mmol/L Chloride Level 98 mmol/L Carbon Dioxide Level 24 mmol/L Anion Gap 7.0 mmol/L Blood Urea Nitrogen 3 mg/dl Creatinine 0.72 mg/dl Est Creatinine Clear Calc Drug Dose 57.3 ml/min Estimated GFR () 105.5 Estimated GFR (Non- 91.0 BUN/Creatinine Ratio 4.2 Random Glucose 180 mg/dl Calcium Level 8.3 mg/dl Urine Osmolality 179 mOms/kg Medical Emergencies . Who to Call and When: Medical Emergencies: If at any time you feel your situation is an emergency, please call 911 immediately. . Non-Emergent Contact Non-Emergency issues call your: Primary Care Provider Call Non-Emergent contact if: your pain is not controlled, your pain is worsening, your pain is unusual for you, your pain is concerning you, you have any medication questions . . "Provider Documentation" section prepared by Verónica Cunningham. .
--- NOTE | 2018-06-11 16:24 | Discharge Summary ---
Discharge Summary Date of Service Jun 11, 2018. Discharge Summary Admission Date: Jun 09, 2018 at 00:46 Discharge Date: Jun 11, 2018 Discharge Disposition: Home Principal Diagnosis: Intractable lower back pain, hyponatremia, UTI Problems/Secondary Diagnoses: HTN Osteoporosis OA Pulmonary nodules Current smoker Nausea/vomiting Normocytic anemia Underweight, BMI 15.6 Immunizations: Have You Had Influenza Vaccine: Unknown History of Tetanus Vaccine?: Unknown History of Pneumococcal: Unknown History of Hepatitis B Vaccine: Unknown Procedures: CT chest CT abdomen/pelvis CT lumbar spine Consultations: Nephrology Pain management Medication Reconciliation New Medications: Cephalexin (Keflex) 500 Mg Cap 1 CAP PO BID for 1 Day, #2 CAP Methylprednisolone (Medrol Dosepak) 4 Mg Juan Manuel 0 PO DAILY, #1 PKT Acetaminophen (Mapap) 325 Mg Tab 650 MG PO Q4H PRN for Pain or Fever for 30 Days OTC Cyclobenzaprine HCl (Cyclobenzaprine HCl) 10 Mg Tab 10 MG PO BID PRN for muscle spasm, #20 TAB Gabapentin (Gabapentin) 100 Mg Cap 100 MG PO BID for 30 Days, #60 CAP Sodium Chloride (Sodium Chloride) 1 Gm Tab 1 GM PO BID for 30 Days, #60 TAB Continued Medications: Lorazepam (Ativan) 0.5 Mg Tab 0.5 MG PO BID PRN for Anxiety, TAB Losartan Potassium (Cozaar) 100 Mg Tab 100 MG PO DAILY, TAB Discontinued Medications: Meloxicam (Mobic) 7.5 Mg Tab 7.5-15 MG PO DAILY PRN for Pain, TAB Discharge Exam Patient feeling very well. The pain in her left lower back is significantly improved and is down to a 3-4/10. No further nausea vomiting and she is eating all of her meals today. Sodium is improved. Physical Exam General Appearance: no apparent distress, + thin Eyes: normal inspection, sclerae normal ENT: hearing grossly normal Neck: trachea midline Respiratory/Chest: no respiratory distress, no accessory muscle use, + decreased breath sounds (Diminished throughout) Cardiovascular: regular rate, rhythm, no edema, no murmur Abdomen: normal bowel sounds, non tender, soft Extremities: non-tender, normal inspection, no pedal edema, no calf tenderness , + pertinent finding (Positive tenderness palpation of the left lumbar paraspinous muscles) Neurologic/Psychiatric: alert, normal mood/affect, oriented x 3 Skin: normal color, warm/dry, no rash Review of Systems: Constitutional: No problem reported Eyes: No problem reported ENT: No problem reported Respiratory: No problem reported Cardiovascular: No problem reported Abdomen: No problem reported Musculoskeletal: No problem reported Genitourinary - Female: No problem reported Neurologic: No problem reported Psychiatric: No problem reported Endocrine: No problem reported Hematologic / Lymphatic: No problem reported Hospital Course This patient is a 58 yo F h/o HTN, osteoporosis, OA, pulmonary nodules, current smoker, who p/w worsening acute on chronic left lower back pain and persistent nausea and vomiting. She was found to be significantly hyponatremic on admission with sodium of 115. Acute on Chronic lower back Pain, left sided-significantly improved from admission CT lumbar spine not very impressive in terms of spinal process, only mild to moderate DDD patient has not had an MRI as outpatient, but does not have significant radicular symptoms on exam, left paraspinal muscles very tender and tightened Appreciate pain management consultation-changes made as below, and recommend formal physical therapy course prior to approval by her insurance for SI joint injection in the future Continue Flexeril 10mg twice daily, added Neurontin 100mg BID -Pain management ordered Medrol Dosepak which she will complete at home Can also take acetaminophen as needed Hyponatremia-hypotonic, hypovolemic Acute on chronic issue, Na was 115 on admission, likely secondary to hypovolemia from GI losses from intractable nausea and vomiting. Her chronic hyponatremia is likely due to recent asthma stat-perhaps from very poor p.o. intake evidenced by her severely low BMI. Treated with normal saline at 100 ML's per hour Na this AM was back to her baseline at 129 on the day of discharge Upon discharge, start sodium chloride 1 g p.o. twice daily and fluid restrict to 1.5 L per day as discussed with the patient due to her chronic hyponatremia Appreciate nephrology [id number] BMP in 1 week and follow-up with nephrology in 2 weeks Nephrology recommended that she should no longer take Mobic or any other NSAIDs which she was taking outpatient UTI Positive UA with >30 WBC, however, there were 20-40 epithelial cells, no fever, normal WBC, no symptoms. Urine culture with E. coli Received 2 days of IV Rocephin and will switch to Keflex 500 mg p.o. twice daily for 1 more day for total of 3 for uncomplicated cystitis no kidney stone, no pyelonephritis on CT abdomen/pelvis Osteoarthritis Discontinue meloxicam indefinitely, use acetaminophen as needed for pain HTN-blood pressures here were normal to mildly elevated. Losartan was held during and patient can be restarted as an outpatient on discharge Underweight, BMI 15.6-counseled on improving her nutrition-may benefit from seeing a line out worker Current smoker-counseled extensively on smoking cessation Normocytic anemia-I do not see evidence of iron studies, B12, or folate in previous labs -Follow CBC as an outpatient and consider further workup for this Pulmonary nodules-unchanged in the CT of the chest here-continue follow-up as per guidelines -Advised smoking cessation Osteoporosis-on Reclast as an outpatient, follows with rheumatology Stable for discharged home Total Time Spent: Greater than 30 minutes This includes examination of the patient, discharge planning, medication reconciliation, and communication with other providers. Discharge Instructions Please refer to the electronic Patient Visit Report (Discharge Instructions) for additional information. Follow-Up With PCP within 1 week With nephrology within 2 weeks Check BMP in 1 week Additional Copies To Estefania Gtz M.D.; Michael Garrett D.O.
[2018-06-11 16:26] VITALS: BP 137/85; PULSE 83; TEMP 36.8; O2SAT 100
[2018-06-11] MEDS ORDERED: SODIUM CHLORIDE 1 GM TAB PO SCH (20:00)
[2018-06-11] MEDS ORDERED: METHYLPREDNISOLONE 4 MG TAB PO SCH (21:00)
[2018-06-12] MEDS ORDERED: METHYLPREDNISOLONE 4 MG TAB PO SCH (07:00)
--- NOTE | 2018-06-12 12:31 | EDITING REQUIRED CODING QUERY ---
CODING QUERY To promote full compliance with coding requirements relating to patient care, provider participation is requested in all cases of gis scientist uncertainty. Please assist us with the question(s) below: Coding Question(s): Hyponatremia is documented in the record. The Nephrology Consult on 06/09/18 documents underlying SIADH suspected. There is no further documentation regarding possible SIADH in the Progress Notes or Discharge Summary. Please clarify below, in your clinical opinion. (x ) Hyponatremia with underlying SIADH suspected ( ) Hyponatremia without underlying SIADH. The possible SIADH is ruled-out Physician's Response(s): Thank you Frances Marquez Principal Diagnosis: "_that condition established after study, to be chiefly responsible for occasioning the admission of the patient to the hospital for care." Co-Existing Principal Diagnosis: "_when two or more diagnoses equally meet the criteria for principal diagnosis as determined by the circumstances of admission, diagnostic work up, and/or therapy provided, and the Alphabetic Index, Tabular List, or another coding guideline does not provide sequencing direction, any one of the diagnoses may be sequenced first." "When the physician has documented what appears to be a current diagnosis in the body of the record, but has not included the diagnosis in the final diagnostic statement, the physician should be asked whether the diagnosis should be added." (Source Coding [facility] 2 QTR90. p3-4)
[2018-06-13] MEDS ORDERED: METHYLPREDNISOLONE 4 MG TAB PO SCH (07:00)
[2018-06-14] MEDS ORDERED: METHYLPREDNISOLONE 4 MG TAB PO SCH (07:00)
[2018-06-15] MEDS ORDERED: METHYLPREDNISOLONE 4 MG TAB PO SCH (07:00)
== END 2018-06-11 17:15 | disposition home or self-care (01) | DRG 644 ==
LOC: C.EDB 19:39 → C.4E 06-09 00:46 → ENRESERV 06-09 01:03
PROVIDERS: ADMIT Hospitalist; ATTEND Family Medicine
DX: E22.2 Syndrome of inappropriate secretion of antidiuretic hormone (principal); N39.0 Urinary tract infection, site not specified; Z68.1 Body mass index [BMI] 19.9 or less, adult; M54.5 Low back pain; M51.36 Other intervertebral disc degeneration, lumbar region; B96.20 Unspecified Escherichia coli [E. coli] as the cause of diseases classified elsewhere; R63.6 Underweight; G89.29 Other chronic pain; M46.1 Sacroiliitis, not elsewhere classified; M79.1 Myalgia; R11.2 Nausea with vomiting, unspecified; R91.8 Other nonspecific abnormal finding of lung field; D64.9 Anemia, unspecified; M81.0 Age-related osteoporosis without current pathological fracture; M19.90 Unspecified osteoarthritis, unspecified site; I10 Essential (primary) hypertension; F17.200 Nicotine dependence, unspecified, uncomplicated; Z79.899 Other long term (current) drug therapy; Z91.041 Radiographic dye allergy status; Z82.49 Family history of ischemic heart disease and other diseases of the circulatory system

== ENCOUNTER → 2018-06-19 | Outpatient (CLI) | payer OTHER ==
[~2018-06-19] MED LIST changes: +ACET-1047 PO; -CALC500C70 PO; +FLX10 PO; +LORA-741 PO; +LOSA100T65 PO; -LOSA50TA6 PO; +METH4PAK PO; +NRN100 PO; +SDMC1 PO
[2018-06-19 12:49] LABS: ALBUMIN 3.2 gm/dl (3.4-5.0); ALKALINE PHOSPHATASE 97 U/L (45-117); ALT/SGPT 26 U/L (12-78); AST/SGOT 18 U/L (15-37); BLOOD UREA NITROGEN 4 mg/dl (7-18); CARBON DIOXIDE 28 mmol/L (21-32); CHOLESTEROL 185 mg/dl (0-200); CREATININE 0.69 mg/dl (0.60-1.20); GLUCOSE 85 mg/dl (70-99); LDL CHOLESTEROL CALCULATED 99 mg/dl; POTASSIUM 4.3 mmol/L (3.5-5.1); SODIUM 136 mmol/L (136-145); TOTAL PROTEIN 6.8 gm/dl (6.4-8.2); TRANSFERRIN 230 mg/dl (200-360)
== END | disposition home or self-care (01) ==
LOC: C.LABBFT 07:50
PROVIDERS: ATTEND Nurse Practitioner
DX: Z00.00 Encounter for general adult medical examination without abnormal findings (principal); Z11.59 Encounter for screening for other viral diseases; I10 Essential (primary) hypertension; D64.9 Anemia, unspecified

== ENCOUNTER 2022-11-28 17:30 | Inpatient (IN) ==
[2022-11-28 18:12] LABS: Basophils # (auto) 0.06 K/uL (0-0.2); Basophils % (auto) 1.1 %; Eosinophils # (auto) 0.01 K/uL (0-0.50); Eosinophils % (auto) 0.2 %; Hematocrit (blood only) 35.3 % (34.1-44.9); Hemoglobin 12.5 g/dl (12.0-16.0); Immature Granulocytes # (auto) 0.03 K/uL (0.00-0.02); Immature Granulocytes % (auto) 0.6 %; Lymphocytes # (auto) 1.21 K/uL (1.2-3.4); Mean Corpuscular Hemoglobin 31.6 pg (25.0-34.0); Mean Corpuscular Hgb Conc 35.4 g/dL (32.0-36.0); Mean Corpuscular Volume 89.4 fL (80.0-100.0); Mean Platelet Volume 8.7 fL (9.4-12.3); Monocytes # (auto) 0.48 K/uL (0.24-0.82); Monocytes % (auto) 9.1 %; Neutrophils # (auto) 3.47 K/uL (1.4-6.5); Platelet Count 244 K/uL (130-400); RDW Coefficient of Variation 13.1 % (11.5-14.5); RDW Standard Deviation 43.3 fL (36.4-46.3); Red Blood Count 3.95 M/uL (3.93-5.22); White Blood Count 5.26 K/ul (4.8-10.8)
[2022-11-28 18:34] LABS: Albumin Globulin Ratio 1.3 (0.9-2); Albumin Level 3.8 gm/dl (3.4-5.0); BUN Creatinine Ratio 11.2 (10-20); Bilirubin,Total 0.4 mg/dl (0.2-1.0); Creatinine Clr Calc Pharmacy 47.6 ml/min; Est GFR (African American) 70.7 ml/min; Globulin 2.9 gm/dl (2.5-4.0); Total Protein 6.7 gm/dl (6.0-8.3)
[2022-11-28 18:53] LABS: Influenza B virus by PCR Negative (Neg); RSV by PCR Negative (Neg); SARS CoV2 RNA(COVID-19) Ceph NEGATIVE (Negative)
[2022-11-28 19:20] LABS: Influenza A virus by PCR Positive (Neg)
--- NOTE | 2022-11-28 19:36 | Emergency Department Note ---
Impression & Plan Influenza A, Acute hyponatremia ED Provider Note Provider: Richard Roldan MD DATE OF SERVICE: 11/28/2022 CHIEF COMPLAINT: Influenza , Lab abnormalities HISTORY OF PRESENT ILLNESS: Patient is a 62-year-old female past medical history of COPD, CAD, hypertension, prior history of hyponatremia presenting here today referred due to abnormal outpatient blood work. Patient a virtual today with 2 days of fever vomiting and diarrhea. Has been trying to hydrate but reports a cough and sore throat. Has been having fevers but not today. Dry cough. Bit of right lower back pain on Saturday when symptoms started but none since. Denies urinary symptoms. Decreased oral intake. Supposed be taking salt tablets but not really getting down much of her medicine. Has had vomiting at some points. Denies significant abdominal pain or chest pain. Some increased fatigue. PAST MEDICAL HISTORY: As noted above MEDICATIONS: Reviewed home medications SOCIAL HISTORY: Smoker PHYSICAL EXAM: GENERAL: alert and oriented in no acute distress on stretcher Head: normocephalic and atraumatic EYES: No injection, discharge or icterus. PERRL, EOMI. NECK: Trachea midline. Supple. ENT: Mucous membranes pink and moist. Pharynx without erythema or exudate. LUNGS: Airway patent. No retractions. Breath sounds clear with good air entry bilaterally. HEART: Regular rate and rhythm. No chest wall tenderness ABDOMEN: Soft and non-tender, without guarding or rebound. No hepatosplenomegaly or masses BACK: No midline tenderness, no SI joint tenderness. No bilateral flank tenderness. SKIN: Acyanotic, warm, dry, without rashes EXTREMITIES: Without swelling, tenderness or deformity NEUROLOGICAL: No focal deficits. No aphasia. No facial droop or slurred speech. Normal strength and tone in the extremities. Sensation to gross touch normal. Ambulatory. EK bpm normal sinus rhythm. No PVC or PAC. No acute ST segment elevation or depression with a QTC of 452. CONTINUOUS CARDIAC MONITORING: was ordered and showed a heart rate of 80s-90s bpm in normal sinus rhythm Patient's laboratory studies and imaging reviewed. Differential includes Infection, dehydration, metabolic abnormality, hypo/hyperg lycemia, electrolyte disturbance, anemia, hypoxia, cardiac sources, as well as other pathologies. IMPRESSION/MEDICAL DECISION MAKING: Patient not any significant respiratory distress. Doubt pneumonia. Not hypoxic. 2 days influenza. No significant anemia or leukocytosis on blood work. Repeat blood work does confirm hyponatremia here and has a history of similar. Is acutely worse. Stable renal function. COVID-negative but influenza A positive. Denies significant any symptoms but urinalysis will be sent as well as serum and urine awesome's. Especially on salt tablets. We will give some IV saline as she has had decreased oral intake. Does not appear acutely confused. Baseline appears to be in the low 130s and now in the low 120s. Discussed with her given the fluid likely be present for several days IV hydration and monitoring will likely be needed here at the hospital. Hosp italist contacted. DIAGNOSIS: Influenza A, hyponatremia DISPOSITION: Hospitalist will evaluate Patient was agreeable with this plan. Past Med/Surg History Medical History Anxiety COPD (chronic obstructive pulmonary disease) Coronary artery calcification Folic acid deficiency Hyperlipidemia Hypertension Hyponatremia Osteoporosis Tobacco abuse Vitamin B12 deficiency Vitamin D deficiency Surgical History History of surgery on wrist Family History Mother Family history of cardiac disorder Family history of myocardial infarction Denies family history of Ovarian cancer Prostate cancer Breast cancer Colorectal cancer Social History Smoking Status: Current every day smoker Cigarettes Per Day: 20; Second Hand Exposure: Yes; Do You Dip or Chew Tobacco: No; Hx Alcohol Use: Yes Alcohol type: beer Hx Substance Use: No Preferred Language: Telugu Communication Ability: Effective Case Technician Required: No Beliefs That Will Affect Care: None Current Living Situation: Significant Other current occupational status: employed 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 Feels Safe at Home: Yes Safety Concerns: Feels Safe At This Time Childhood Exposure to Second-Hand Smoke: Yes Dental Care, Regularly: Yes Physical Activity Frequency: Does not Exercise Seatbelt Use: always Sunscreen Use: Yes Assistive Devices: Denture - Upper, Denture - Lower and Glasses Allergies Allergies Allergy/AdvReac Type Severity Reaction Status Date / Time Iodinated Contrast Media Allergy Severe swelling, Verified 11/28/22 20:18 hives morphine AdvReac Vomiting Verified 11/28/22 20:18 Home Meds Home Medications Medication Instructions Recorded Confirmed cyanocobalamin (vitamin B-12) 1,000 mcg PO DAILY #30 tabs 07/15/19 11/28/22 1,000 mcg tablet aspirin 81 mg tablet,delayed 81 mg PO DAILY 02/12/21 11/28/22 release (Enteric Coated Aspirin) calcium carbonate 600 mg-vitamin 1 tab PO DAILY 11/28/22 11/28/22 D3 5 mcg (200 unit) tablet Previous Rx's Medication Instructions Recorded lorazepam 0.5 mg tablet 0.5 mg PO TID PRN anxiety #30 tabs 11/28/21 losartan 100 mg tablet 100 mg PO DAILY #90 tabs 05/18/22 folic acid 1 mg tablet 1 mg PO DAILY #90 tabs 06/18/22 mirtazapine 15 mg tablet 15 mg PO QPM #90 tabs 06/19/22 gabapentin 100 mg capsule 100 mg PO BID #180 caps 07/19/22 rosuvastatin 10 mg tablet 10 mg PO DAILY #90 tabs 08/09/22 sodium chloride 1,000 mg soluble 1,000 mg PO BID #180 tabs 08/14/22 tablet cyclobenzaprine 10 mg tablet 10 mg PO BID PRN muscle spasm #60 09/03/22 tabs Results & Data (ED) Vital Signs Vital Signs - 24 hr 11/28/22 17:35 Temperature 36.9 C Temperature Source Temporal Artery Scan Pulse Rate 95 H Respiratory Rate 19 Blood Pressure 101/68 Blood Pressure Mean 79 Pulse Oximetry 96 Oxygen Delivery Method Room Air Sepsis Recent Fever Within 48 Hours No Sepsis New/Unexplained Change in Mental Status N/A Sepsis Action Taken by Nursing No Action Required Laboratory Data 11/28/22 17:51 11/28/22 17:51 Lab Results 11/28/22 11/28/22 11/28/22 Range/Units 17:51 17:51 19:36 WBC 5.26 (4.8-10.8) K/ul RBC 3.95 (3.93-5.22) M/uL Hgb 12.5 (12.0-16.0) g/dl Hct 35.3 (34.1-44.9) % MCV 89.4 (80.0-100.0) fL MCH 31.6 (25.0-34.0) pg MCHC 35.4 (32.0-36.0) g/dL RDW Std Deviation 43.3 (36.4-46.3) fL RDW Coeff of Travis 13.1 (11.5-14.5) % Plt Count 244 (130-400) K/uL MPV 8.7 L (9.4-12.3) fL Immature Gran % (Auto) 0.6 % Neut % (Auto) 66.0 % Lymph % (Auto) 23.0 % [place] % (Auto) 9.1 % Eos % (Auto) 0.2 % Baso % (Auto) 1.1 % Neut # (Auto) 3.47 (1.4-6.5) K/uL Lymph # (Auto) 1.21 (1.2-3.4) K/uL [place] # (Auto) 0.48 (0.24-0.82) K/uL Eos # (Auto) 0.01 (0-0.50) K/uL Baso # (Auto) 0.06 (0-0.2) K/uL Immature Gran # (Auto) 0.03 H (0.00-0.02) K/uL Sodium 122 L (136-145) mmol/L Potassium 4.0 (3.5-5.1) mmol/L Chloride 90 L (98-107) mmol/L Carbon Dioxide 23 (21-32) mmol/L Anion Gap 9 (3-11) BUN 11 (6-23) mg/dl Creatinine 0.98 (0.6-1.2) mg/dl Est Cr Clr Drug Dosing 47.6 ml/min Est GFR ( Amer) 70.7 ml/min Est GFR (Non-Af Amer) 61.0 ml/min BUN/Creatinine Ratio 11.2 (10-20) Glucose 106 H (70-99(Fasting)) mg/dl Osmolality 253 L (280-300) mOsm/kg Calcium 8.0 L (8.5-10.1) mg/dl Total Bilirubin 0.4 (0.2-1.0) mg/dl AST 43 H (13-39) U/L ALT 22 (7-52) U/L Alkaline Phosphatase 58 (34-104) U/L Total Protein 6.7 (6.0-8.3) gm/dl Albumin 3.8 (3.4-5.0) gm/dl Globulin 2.9 (2.5-4.0) gm/dl Albumin/Globulin Ratio 1.3 (0.9-2) TSH (0.300-4.500) uIu/ml 11/28/22 Range/Units 19:36 WBC (4.8-10.8) K/ul RBC (3.93-5.22) M/uL Hgb (12.0-16.0) g/dl Hct (34.1-44.9) % MCV (80.0-100.0) fL MCH (25.0-34.0) pg MCHC (32.0-36.0) g/dL RDW Std Deviation (36.4-46.3) fL RDW Coeff of Travis (11.5-14.5) % Plt Count (130-400) K/uL MPV (9.4-12.3) fL Immature Gran % (Auto) % Neut % (Auto) % Lymph % (Auto) % [place] % (Auto) % Eos % (Auto) % Baso % (Auto) % Neut # (Auto) (1.4-6.5) K/uL Lymph # (Auto) (1.2-3.4) K/uL [place] # (Auto) (0.24-0.82) K/uL Eos # (Auto) (0-0.50) K/uL Baso # (Auto) (0-0.2) K/uL Immature Gran # (Auto) (0.00-0.02) K/uL Sodium (136-145) mmol/L Potassium (3.5-5.1) mmol/L Chloride (98-107) mmol/L Carbon Dioxide (21-32) mmol/L Anion Gap (3-11) BUN (6-23) mg/dl Creatinine (0.6-1.2) mg/dl Est Cr Clr Drug Dosing ml/min Est GFR ( Amer) ml/min Est GFR (Non-Af Amer) ml/min BUN/Creatinine Ratio (10-20) Glucose (70-99(Fasting)) mg/dl Osmolality (280-300) mOsm/kg Calcium (8.5-10.1) mg/dl Total Bilirubin (0.2-1.0) mg/dl AST (13-39) U/L ALT (7-52) U/L Alkaline Phosphatase (34-104) U/L Total Protein (6.0-8.3) gm/dl Albumin (3.4-5.0) gm/dl Globulin (2.5-4.0) gm/dl Albumin/Globulin Ratio (0.9-2) TSH 1.448 (0.300-4.500) uIu/ml Administered Medications Gabapentin (Gabapentin 100 Mg Cap) 100 mg PO BID LUKAS Stop: 12/28/22 21:38 Last Admin: 11/28/22 23:54 Dose: 100 mg Documented By: JAG Sodium Chloride (Nss 1000ml) 1,000 mls @ 100 mls/hr IV .Q10H LUKAS Stop: 11/29/22 13:29 Last Admin: 11/28/22 23:54 Dose: 100 mls/hr Documented By: JAG Oseltamivir Phosphate (Oseltamivir Phosphate Susp 30 Mg/5 Ml Udp) 30 mg PO BID [facility]; Protocol Stop: 12/03/22 21:38 Last Admin: 11/28/22 23:54 Dose: Not Given Documented By: JAG Sodium Chloride (Sodium Chloride 1 Gm Tablet) 1 gm PO BID [facility] Stop: 12/28/22 21:38 Last Admin: 11/28/22 23:54 Dose: 1 gm Documented By: JAG Discontinued Medications Sodium Chloride (Nss 1000ml) 1,000 mls @ 80 mls/hr IV .[id number] LUKAS Stop: 12/28/22 19:59 Last Infusion: 11/29/22 00:06 Dose: 0 mls/hr Documented By: Admin: 11/28/22 21:07 Dose: 80 mls/hr Documented By: JAG Ondansetron HCl (Ondansetron Inj 2 Mg/Ml 2 Ml Vial) 4 mg IV NOW STA Stop: 11/28/22 19:48 Last Admin: 11/28/22 21:08 Dose: 4 mg Documented By: JAG Discharge Plan Visit Data Chief Complaint: Flu Like Symptoms Stated Complaint: FLU POSITIVE ED Provider: Richard Roldan Discharge Problem: Influenza A, Acute hyponatremia Patient Disposition: Being Evaluated by Hospitalist Discharge Instructions Interventions: ED Discharge Assessment Last Done: 11/28/22 21:14
[2022-11-28] MEDS ORDERED: ONDANSETRON INJ 2 MG/ML 2 ML VIAL IV STA (19:47)
[2022-11-28] MEDS ORDERED: SODIUM CHLORIDE 0.9% 1000ML 1,000 ML IV SCH (20:00)
--- NOTE | 2022-11-28 20:07 | History & Physical Report ---
Date of Service November 28, 2022 Assessment & Plan (1) Influenza A: Plan: Elizabeth is a 62 year old female w/ PmHx chronic hyponatremia, CAD, tobacco use 1ppd, alcohol use 3-4 beers per day, hyperlipidemia, hypertension, osteoporosis, B12 deficiency, Vitamin D deficiency, Folic acid deficiency, anxiety admitted for hyponatremia and inability to tolerate PO intake. Acute hyponatremia: -Baseline Na 129-132. Na 122 on admission. -Serum osm 253, urine osm. -Has had workup from nephrology in past, may have poor solute intake, excess fluid intake, possible osmostat or mild SIADH. -Most likely contribution of dehydration in this acute on chronic case from poor PO intake from influenza as well as diarrhea. -Started on NSS in ED. Continue at 100ml/hr. -Continue to monitor sodium on fluids w/ initial CMP followed by BMP in AM as sodium has improved on past admissions with fluid rehydration. -Avoid correction >6meq per 24hr period. Influenza A: -Tested positive on Covid/Flu/RSV for Influenza A. -WBC 5.26, mild rhonchi on exam. -Tachycardic to 95, otherwise afebrile, BP and O2 sat WNL. -Start patient on Tamiflu 75mg PO BID for 5 days - Zofran 4mg IV q6h ordered for nausea. -Continue to monitor CBC, vitals. Alcohol use: -Patient w/ chronic alcohol use 3-4 beers per day. -Last drink Saturday night (2 beers). -CMP, INR, Alcohol level ordered. -AWSS protocol in place, 1mg IV PRN for score >5. -Continued home Folic acid, Vitamin B12, added Thiamine 100mg daily. -Continue home gabapentin 100 BID. -Admitted to Med/surg Tele, continue to monitor. Tobacco use: -Smokes 1 pack per day. -Nicotine patch 21mg TD ordered while inpatient. Hyperlipidemia/CAD: -Continue home rosuvastatin, aspirin 81mg. Hypertension: -Continue home losartan 100mg. F/E/N/GI: Clear liquid, advance as tolerated. Zofran 4mg IV q6h PRN for nausea. DVT Prophylaxis: SCDs, Lovenox 40mg QAM. Code Status: Discussed with patient - Full Code. If any action were to be taken please call Ricardo at [phone]. Dispo: Med/surg Telemetry. (2) Acute hyponatremia: (3) Hyperlipidemia: (4) Vitamin B12 deficiency: (5) Tobacco abuse: (6) Hypertension: (7) Folic acid deficiency: (8) Anxiety: (9) Vitamin D deficiency: (10) Coronary artery calcification: (11) Alcohol use: History of Present Illness Chief Complaint: Hyponatremia Primary Care Provider: Estefania Gtz MD Elizabeth is a 62 year old female w/ PmHx of chronic hyponatremia, CAD, tobacco use 1ppd, alcohol use 3-4 beers per day, hyperlipidemia, hypertension, osteoporosis, B12 deficiency, Vitamin D deficiency, Folic acid deficiency, anxiety who came to the ED from PCP office for acute on chronic hyponatremia. Patient states that she started to have symptoms of lower back ache, congestion, rhinorrhea, nausea, and diarrhea starting Saturday. She states her appetite has been poor since then as well, only able to eat a few pieces of toast and drink a few glasses of water and rudy clifford per day. She states every time she tried to ingest her medications, including the salt tablets, she would vomit them back up. She only vomited with eating/ingesting something. She states she had the diarrhea since Saturday which she was able to take a dose of imodium for. She usually sees nephrology outpatient for her hyponatremia, drinks up to 3-4 beers per day, however last beer was Saturday and she had 2 beers the whole day. She denies any past history of alcohol withdrawal or seizures; she has talked with nephrology in the past about quitting alcohol however difficult for patient to quit. She states she smokes 1 pack of cigarettes per day. She endorses feeling dehydrated. Denies any fevers, chills, shortness of breath or difficulty breathing. Allergies Allergy/AdvReac Type Severity Reaction Status Date / Time Iodinated Contrast Media Allergy Severe swelling, Verified 11/28/22 20:18 hives morphine AdvReac Vomiting Verified 11/28/22 20:18 Home Medications Medication Instructions Recorded Confirmed Type cyanocobalamin (vitamin B-12) 1,000 mcg PO DAILY #30 tabs 07/15/19 11/28/22 History 1,000 mcg tablet aspirin 81 mg tablet,delayed 81 mg PO DAILY 03/21/21 01/04/23 History release (Enteric Coated Aspirin) lorazepam 0.5 mg tablet 0.5 mg PO TID PRN anxiety #30 tabs 11/28/21 11/28/22 Rx losartan 100 mg tablet 100 mg PO DAILY #90 tabs 05/18/22 11/28/22 Rx folic acid 1 mg tablet 1 mg PO DAILY #90 tabs 06/18/22 11/28/22 Rx mirtazapine 15 mg tablet 15 mg PO QPM #90 tabs 06/19/22 11/28/22 Rx gabapentin 100 mg capsule 100 mg PO BID #180 caps 07/19/22 11/28/22 Rx rosuvastatin 10 mg tablet 10 mg PO DAILY #90 tabs 08/09/22 11/28/22 Rx sodium chloride 1,000 mg soluble 1,000 mg PO BID #180 tabs 08/14/22 11/28/22 Rx tablet cyclobenzaprine 10 mg tablet 10 mg PO BID PRN muscle spasm #60 09/03/22 11/28/22 Rx tabs calcium carbonate 600 mg-vitamin 1 tab PO DAILY 11/28/22 11/28/22 History D3 5 mcg (200 unit) tablet Past Med/Surg History Medical History Anxiety COPD (chronic obstructive pulmonary disease) Coronary artery calcification Folic acid deficiency Hyperlipidemia Hypertension Hyponatremia Osteoporosis Tobacco abuse Vitamin B12 deficiency Vitamin D deficiency Surgical History History of surgery on wrist Family History Mother Family history of cardiac disorder Family history of myocardial infarction Denies family history of Ovarian cancer Prostate cancer Breast cancer Colorectal cancer Social History Smoking Status: Current every day smoker Cigarettes Per Day: 1 pack; Second Hand Exposure: No; Hx Alcohol Use: Yes Alcohol type: beer Hx Substance Use: No Preferred Language: Macedonian Communication Ability: Effective Chief Accounting Officer Required: No Beliefs That Will Affect Care: None Current Living Situation: Spouse Current Living Situation Comment: lives with fiance current occupational status: employed 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 Physical Exam Constitutional: WD/WN, vitals as above Eyes: PERRL, conjunctivae normal, anicteric sclerae ENMT: external ear and nose normal, oropharynx normal TM clear with good cone of light. Respiratory: Mild expiratory rhonchi bilaterally. No wheezing auscultated. Cardiovascular: Rate/Rhythm: regular rhythm and + tachycardic Heart Sounds: normal S1 and normal S2 No peripheral swelling. capillary refill ~2seconds. Gastrointestinal (Abdomen): normal bowel sounds, soft, nontender, no hepatosplenomegaly Results & Data Results & Data ([facility]) Vital Signs (Past 12 Hours) Vital Signs Temp Pulse Resp BP Pulse Ox O2 Del Method 11/28/22 17:35 36.9 C 95 H 19 101/68 96 Room Air Supervising Physician Co-Signing Physician Notes Attending addendum: I have physically seen this patient, have supervised the medical residents activities, and agree with the H&P unless as otherwise noted. Assessment and Plan: Hyponatremia- Sodium 122, with baseline 129-132 Serum osmolality 253 Urine osmolality pending Has had decreased oral intake and diarrhea NSS 100 mils per hour Sodium chloride 1 g p.o. twice daily Serial BMP and magnesium levels Influenza A- Tamiflu 75 mg p.o. twice daily for 5 days Zofran 4 mg IV every 6 hours as needed IV fluids as above Alcohol use/abuse- Patient averages 3-4 beers per day with last drink being 2 nights ago AWSS protocol with IV Ativan Likely an element of beer [place] Continue home gabapentin 100 mg p.o. twice daily Continue folic acid 1 mg daily and vitamin B12 1000 mcg daily Add thiamine 100 mg p.o. daily Admit to MedSur with telemetry Tobacco abuse- Admits to smoking 1 pack/day Placed on nicotine patch as noted Remaining orders and notations as noted Resident Activity Tracking Resident Involvement: Resident Care Provided Care Provided: Adult Hospital Medicine
[2022-11-28] MEDS ORDERED: LORazepam 2 MG/1 ML VIAL IV PRN (21:39)
[2022-11-28] MEDS ORDERED: ONDANSETRON INJ 2 MG/ML 2 ML VIAL IV PRN (21:39)
[2022-11-28] MEDS ORDERED: ACETAMINOPHEN 325 MG TAB PO PRN (21:39)
[2022-11-28 23:11] LABS: INR 0.9 (0.9-1.1)
[2022-11-28 23:24] LABS: Albumin Globulin Ratio 1.4 (0.9-2); Albumin Level 3.4 gm/dl (3.4-5.0); BUN Creatinine Ratio 10.6 (10-20); Bilirubin,Total 0.4 mg/dl (0.2-1.0); Calcium 8.2 mg/dl (8.5-10.1); Creatinine Clr Calc Pharmacy 44.9 ml/min; Est GFR (African American) 65.8 ml/min; Est GFR (Non-African American) 56.7 ml/min; Globulin 2.5 gm/dl (2.5-4.0); Potassium 3.9 mmol/L (3.5-5.1); Total Protein 5.9 gm/dl (6.0-8.3)
[2022-11-28] MEDS: SODIUM CHLORIDE 0.9% 1000ML 1,000 ML IV SCH (23:54)
[2022-11-28] MEDS: GABAPENTIN 100 MG CAP PO SCH (23:54)
[2022-11-28] MEDS: SODIUM CHLORIDE 1 GM TABLET PO SCH (23:54)
[2022-11-28] MEDS: OSELTAMIVIR PHOSPHATE SUSP 30 MG/5 ML UDP PO SCH (23:54)
[2022-11-29 07:10] LABS: Basophils # (auto) 0.01 K/uL (0-0.2); Basophils % (auto) 0.2 %; Hematocrit (blood only) 31.8 % (34.1-44.9); Hemoglobin 11.1 g/dl (12.0-16.0); Immature Granulocytes # (auto) 0.02 K/uL (0.00-0.02); Immature Granulocytes % (auto) 0.4 %; Lymphocytes # (auto) 0.97 K/uL (1.2-3.4); Lymphocytes % (auto) 19.6 %; Mean Corpuscular Hgb Conc 34.9 g/dL (32.0-36.0); Mean Corpuscular Volume 91.6 fL (80.0-100.0); Mean Platelet Volume 8.7 fL (9.4-12.3); Monocytes # (auto) 0.55 K/uL (0.24-0.82); Monocytes % (auto) 11.1 %; Neutrophils # (auto) 3.39 K/uL (1.4-6.5); Neutrophils % (auto) 68.7 %; Platelet Count 211 K/uL (130-400); RDW Coefficient of Variation 13.3 % (11.5-14.5); RDW Standard Deviation 44.9 fL (36.4-46.3); Red Blood Count 3.47 M/uL (3.93-5.22); White Blood Count 4.94 K/ul (4.8-10.8)
[2022-11-29 07:49] LABS: BUN Creatinine Ratio 8.5 (10-20); Calcium 7.5 mg/dl (8.5-10.1); Creatinine Clr Calc Pharmacy 35.9 ml/min; Est GFR (African American) 50.2 ml/min; Est GFR (Non-African American) 43.3 ml/min; Potassium 4.2 mmol/L (3.5-5.1)
[2022-11-29] MEDS: NICOTINE 21 MG/24 HR TDSY TD SCH (08:17)
[2022-11-29] MEDS: ASPIRIN 81 MG ECTAB PO SCH (08:20)
[2022-11-29] MEDS: CYANOCOBALAMIN (B-12) 500 MCG TABLET PO SCH (08:21)
[2022-11-29] MEDS: ENOXAPARIN INJ 40 MG/0.4 ML SYR SQ SCH (08:22)
[2022-11-29] MEDS: FOLIC ACID 1 MG TAB PO SCH (08:23)
[2022-11-29] MEDS: GABAPENTIN 100 MG CAP PO SCH ×2 (08:24→21:10)
[2022-11-29] MEDS: LOSARTAN POTASSIUM 50 MG TAB PO SCH (08:25)
[2022-11-29] MEDS: OSELTAMIVIR PHOSPHATE SUSP 30 MG/5 ML UDP PO SCH ×2 (08:27→21:10)
[2022-11-29] MEDS: ROSUVASTATIN CALCIUM 10 MG TAB PO SCH (08:28)
[2022-11-29] MEDS: THIAMINE HCL 100 MG TAB PO SCH (08:29)
[2022-11-29] MEDS: SODIUM CHLORIDE 1 GM TABLET PO SCH ×2 (08:30→21:09)
[2022-11-29] MEDS: SODIUM CHLORIDE 0.9% 1000ML 1,000 ML IV SCH (10:43)
[2022-11-29] MEDS ORDERED: ALBUTEROL HFA 8 GM INHALER INH PRN (10:47)
--- NOTE | 2022-11-29 10:54 | Hospitalist Progress Note ---
Date of Service November 29, 2022 Assessment & Plan (1) Influenza A: Plan: Patient is a 62yo female with history of chronic hyponatremia on home salt tabs, CAD, HTN, HLP and ongoing tobacco and daily EtOH use admitted for acute on chronic hyponatremia and inability to tolerate PO intake in the setting of influenza A. Influenza A: Patient tested POSITIVE for INFLUENZA A. She has a cough but does not feel short of breath. On exam she has mild crackles and some end-expiratory wheezing. Saturations today have been low - 80-88% on room air recorded. During my encounter she was 91-93% on room air. -Continue Tamiflu 75mg PO BID for 5 days -Zofran 4mg IV q6h ordered for nausea. -Supplemental O2 as needed -Check ambulatory saturation -Albuterol as needed -Continue to monitor CBC, vitals. (2) Acute hyponatremia: Plan: Acute hyponatremia: -If=094 on arrival -acute hyponatremia resolved - patient Na this XL=828. Her baseline is 129-132. She received maintenance NSS as well as salt tabs x 2gm (at 23:54 and this AM at 08:30) -Most likely secondary to dehydration, poor solute intake in setting of acute illness (3) Hyperlipidemia: Plan: Chronic. Stable -Continue Crestor 10mg po daily (4) Coronary artery calcification: Plan: Chronic. Patient denies chest pain -Continue ASA and Crestor (5) Alcohol use: Plan: Alcohol use: -Patient w/ chronic alcohol use 3-4 beers per day. -Last drink Saturday night (2 beers). -CMP normal. INR and Alcohol level ordered - not yet sent. -AWSS protocol in place, 1mg IV PRN for score >5. -Continued home Folic acid, Vitamin B12, and Thiamine 100mg daily. -Continue home gabapentin 100 BID. -Monitor for evidence of withdrawal (6) Tobacco abuse: Plan: Ongoing. -NIcotine patch per request -Smoking cessation counseling (7) Hypertension: Plan: Chronic. Well controlled at present. PC=377/65 -Continue Losartan (8) Folic acid deficiency: Plan: Chronic. -Continue supplementation 1mg po daily -Encourage EtOH cessation (9) Vitamin B12 deficiency: Plan: Noted -Continue supplementation F/E/N/GI: Clear liquid, advance as tolerated. Zofran 4mg IV q6h PRN for nausea. DVT Prophylaxis: SCDs, Lovenox 40mg QAM. Code Status: Discussed with patient - Full Code. If any action were to be taken please call Ricardo at [phone]. Dispo: Med/surg Telemetry. Admission and Anticipated Discharge Date Admission Date: November 28, 2022 Subjective Patient seen and examined in ER room B6. Reports no new overnight complaints. She was able to tolerate some oral intake and take her medications without vomiting. No additional diarrhea. She does report still feeling tired and weak although improved from prior. Review of Systems Review of Systems: All systems reviewed & are unremarkable except as noted in HPI & below Physical Exam Physical Exam: General: patient resting comfortably, NAD, appears tired but non-toxic in appearance, AA&O x 4 Skin: warm, dry, intact, no rashes or lesions HEENT: NC/AT, PERRL, EOMI, anicteric sclera, conjunctiva without injection, external ear normal to inspection and nontender, nares patent, moist mucus membranes, dentition intact, no oropharyngeal lesions, neck supple, trachea mi dline, no LAD, no thyromegaly, no JVD Heart: +S1/S2, regular, no m/r/g Lungs: equal air entry bilaterally, faint crackles in bilateral bases and end- expiratory wheezing mild in mid lung stokes. Abd: +BS, soft, NT/ND, no masses/organomegaly/ascites Ext: warm, 2+ pulses in UE/LE bilaterally, no clubbing/cyanosis or edema Neuro: nonfocal, patient AA&O x 4, speech intact, no facial droop, moving all extremities on command with equal strength 5/5 Results & Data Results & Data ([facility]) Vital Signs (Past 12 Hours) Vital Signs Pulse Pulse Resp BP BP Pulse Ox Pulse Ox 11/29/22 08:01 89 91 11/29/22 08:01 105/65 11/29/22 08:00 90 90 11/29/22 07:50 92 H 11/29/22 07:40 85 88 L 11/29/22 07:30 91 H 80 L 11/29/22 07:20 85 93 11/29/22 07:10 89 92 11/29/22 07:07 88 L 11/29/22 06:50 91 11/29/22 06:40 87 93 11/29/22 06:30 86 91 11/29/22 06:20 84 91 11/29/22 06:10 84 91 11/29/22 06:01 93 H 93 11/29/22 06:00 87 93 11/29/22 05:50 83 92 11/29/22 05:40 85 91 11/29/22 05:30 99 H 92 11/29/22 05:20 91 11/29/22 05:10 95 11/29/22 05:07 91 11/29/22 04:50 85 91 11/29/22 04:40 86 92 11/29/22 04:30 85 90 11/29/22 04:20 86 92 11/29/22 04:10 86 90 11/29/22 04:00 88 91 11/29/22 04:00 86/54 L 11/29/22 03:50 88 91 11/29/22 03:40 87 91 11/29/22 03:30 85 92 11/29/22 03:20 92 11/29/22 03:10 91 11/29/22 03:00 92 11/29/22 03:00 95/53 L 11/29/22 02:50 94 11/29/22 02:44 74 L 11/29/22 02:30 92 H 90 11/29/22 02:20 84 92 11/29/22 02:10 85 92 11/29/22 02:00 84 90 11/29/22 01:00 18 99/58 L 94 11/29/22 00:03 96 11/29/22 00:02 88 16 126/70 96 O2 Del Method O2 Del Method 11/29/22 08:01 11/29/22 08:01 11/29/22 08:00 11/29/22 07:50 11/29/22 07:40 11/29/22 07:30 11/29/22 07:20 11/29/22 07:10 11/29/22 07:07 11/29/22 06:50 11/29/22 06:40 11/29/22 06:30 11/29/22 06:20 11/29/22 06:10 11/29/22 06:01 11/29/22 06:00 11/29/22 05:50 11/29/22 05:40 11/29/22 05:30 11/29/22 05:20 11/29/22 05:10 11/29/22 05:07 11/29/22 04:50 11/29/22 04:40 11/29/22 04:30 11/29/22 04:20 11/29/22 04:10 11/29/22 04:00 11/29/22 04:00 11/29/22 03:50 11/29/22 03:40 11/29/22 03:30 11/29/22 03:20 11/29/22 03:10 11/29/22 03:00 11/29/22 03:00 11/29/22 02:50 11/29/22 02:44 11/29/22 02:30 11/29/22 02:20 11/29/22 02:10 11/29/22 02:00 11/29/22 01:00 11/29/22 00:03 Room Air 11/29/22 00:02 Room Air Laboratory Results Laboratory Results WBC 4.94 K/ul (4.8-10.8) 11/29/22 06:47 RBC 3.47 M/uL (3.93-5.22) L 11/29/22 06:47 Hgb 11.1 g/dl (12.0-16.0) L 11/29/22 06:47 Hct 31.8 % (34.1-44.9) L 11/29/22 06:47 MCV 91.6 fL (80.0-100.0) 11/29/22 06:47 MCH 32.0 pg (25.0-34.0) 11/29/22 06:47 MCHC 34.9 g/dL (32.0-36.0) 11/29/22 06:47 RDW Std Deviation 44.9 fL (36.4-46.3) 11/29/22 06:47 RDW Coeff of Travis 13.3 % (11.5-14.5) 11/29/22 06:47 Plt Count 211 K/uL (130-400) 11/29/22 06:47 MPV 8.7 fL (9.4-12.3) L 11/29/22 06:47 Immature Gran % (Auto) 0.4 % 11/29/22 06:47 Neut % (Auto) 68.7 % 11/29/22 06:47 Lymph % (Auto) 19.6 % 11/29/22 06:47 [place] % (Auto) 11.1 % 11/29/22 06:47 Eos % (Auto) 0.0 % 11/29/22 06:47 Baso % (Auto) 0.2 % 11/29/22 06:47 Neut # (Auto) 3.39 K/uL (1.4-6.5) 11/29/22 06:47 Lymph # (Auto) 0.97 K/uL (1.2-3.4) L 11/29/22 06:47 [place] # (Auto) 0.55 K/uL (0.24-0.82) 11/29/22 06:47 Eos # (Auto) 0.00 K/uL (0-0.50) 11/29/22 06:47 Baso # (Auto) 0.01 K/uL (0-0.2) 11/29/22 06:47 Immature Gran # (Auto) 0.02 K/uL (0.00-0.02) 11/29/22 06:47 PT 10.0 Seconds (9.0-12.0) 11/28/22 22:51 INR 0.9 (0.9-1.1) 11/28/22 22:51 Sodium 130 mmol/L (136-145) L 11/29/22 06:47 Potassium 4.2 mmol/L (3.5-5.1) 11/29/22 06:47 Chloride 102 mmol/L (98-107) 11/29/22 06:47 Carbon Dioxide 22 mmol/L (21-32) 11/29/22 06:47 Anion Gap 6 (3-11) 11/29/22 06:47 BUN 11 mg/dl (6-23) 11/29/22 06:47 Creatinine 1.30 mg/dl (0.6-1.2) H 11/29/22 06:47 Est Cr Clr Drug Dosing 35.9 ml/min 11/29/22 06:47 Est GFR ( Amer) 50.2 ml/min 11/29/22 06:47 Est GFR (Non-Af Amer) 43.3 ml/min 11/29/22 06:47 BUN/Creatinine Ratio 8.5 (10-20) L 11/29/22 06:47 Glucose 92 mg/dl (70-99(Fasting)) 11/29/22 06:47 Osmolality 253 mOsm/kg (280-300) L 11/28/22 19:36 Calcium 7.5 mg/dl (8.5-10.1) L 11/29/22 06:47 Total Bilirubin 0.4 mg/dl (0.2-1.0) 11/28/22 22:51 AST 39 U/L (13-39) 11/28/22 22:51 ALT 20 U/L (7-52) 11/28/22 22:51 Alkaline Phosphatase 54 U/L (34-104) 11/28/22 22:51 Total Protein 5.9 gm/dl (6.0-8.3) L 11/28/22 22:51 Albumin 3.4 gm/dl (3.4-5.0) 11/28/22 22:51 Globulin 2.5 gm/dl (2.5-4.0) 11/28/22 22:51 Albumin/Globulin Ratio 1.4 (0.9-2) 11/28/22 22:51 TSH 1.448 uIu/ml (0.300-4.500) 11/28/22 19:36 Ethyl Alcohol mg/dL < 10.0 mg/dl (<10.0) 11/28/22 22:51 SARS-CoV-2 (PCR) NEGATIVE (Negative) 11/28/22 Unknown Influenza Type A (PCR) Positive (Neg) A* 11/28/22 Unknown Influenza Type B (PCR) Negative (Neg) 11/28/22 Unknown RSV (RT-PCR) Negative (Neg) 11/28/22 Unknown PG Care Time/CCT Total # of Minutes Spent Total Time Spent with Patient: Total time spent is greater than 50% in coordination of care (as documented) at patient's floor/unit and/or counseling patient: Coding Level of Care Code 55785 SUB INP/OBS CARE 2/35MIN Diagnoses Influenza A J10.1 Acute hyponatremia E87.1 Hyperlipidemia E78.5 Coronary artery calcification I25.10; I25.84 Alcohol use Z78.9 Tobacco abuse Z72.0 Hypertension I10 Folic acid deficiency E53.8 Vitamin B12 deficiency E53.8
[2022-11-29 14:50] LABS: Appearance Urine Clear (Clear); Bacteria Urine Automated 4+ (Negative); Bilirubin Urine Negative (Negative); Blood Urine Trace (Negative); Cast Urine Automated 0 /lpf (0-5); Color Urine Yellow; Glucose Urine UA Negative (Negative); Ketones Urine Negative (Negative); Leukocyte Esterase Urine 2+ (Negative); Nitrite Urine Positive (Negative); Protein Urine Negative (Negative); RBC Urine Automated 0-4 /hpf (0-4); Specific Gravity Urine 1.004 (1.000-1.030); Urobilinogen Urine Negative (Negative); WBC Urine Automated >30 /hpf (0-5)
[2022-11-29] MEDS ORDERED: guaiFENesin/DEXTROM SYRUP 200MG/20MG 10ML UDC PO PRN ×2 (16:25→16:45)
[2022-11-29] MEDS: guaiFENesin/DEXTROM SYRUP 200MG/20MG 10ML UDC PO PRN (18:28)
[2022-11-29] MEDS ORDERED: MIRTAZAPINE TAB 15 MG TAB PO SCH (21:00)
--- NOTE | 2022-11-29 21:37 | Electrocardiogram Report ---
Test Reason : Blood Pressure : / mmHG Vent. Rate : 095 BPM Atrial Rate : 095 BPM P-R Int : 128 ms QRS Dur : 072 ms QT Int : 360 ms P-R-T Axes : 078 063 061 degrees QTc Int : 452 ms Poor data quality, interpretation may be adversely affected Normal sinus rhythm Normal ECG When compared with ECG of 08-JUN-2018 21:59, T wave amplitude has decreased in Inferior leads T wave amplitude has decreased in Anterior leads Confirmed by Ulisses Mckeon ([id number]) on 11/29/2022 9:36:47 PM Referred By: REFERRED SELF Confirmed By:Ulisses Mckeon
--- NOTE | 2022-11-29 23:56 | Billing Data ---
Date of Service November 29, 2022 Coding Level of Care Code 56997 INT INP/OBS CARE
[2022-11-30 07:58] LABS: Basophils # (auto) 0.02 K/uL (0-0.2); Basophils % (auto) 0.4 %; Hematocrit (blood only) 30.9 % (34.1-44.9); Hemoglobin 10.8 g/dl (12.0-16.0); Immature Granulocytes # (auto) 0.02 K/uL (0.00-0.02); Immature Granulocytes % (auto) 0.4 %; Lymphocytes # (auto) 1.13 K/uL (1.2-3.4); Lymphocytes % (auto) 22.6 %; Mean Corpuscular Hemoglobin 31.9 pg (25.0-34.0); Mean Corpuscular Volume 91.2 fL (80.0-100.0); Mean Platelet Volume 8.8 fL (9.4-12.3); Neutrophils # (auto) 3.32 K/uL (1.4-6.5); Neutrophils % (auto) 66.6 %; Platelet Count 208 K/uL (130-400); RDW Coefficient of Variation 13.8 % (11.5-14.5); RDW Standard Deviation 46.5 fL (36.4-46.3); Red Blood Count 3.39 M/uL (3.93-5.22); White Blood Count 4.99 K/ul (4.8-10.8)
[2022-11-30 08:24] LABS: BUN Creatinine Ratio 6.7 (10-20); Calcium 7.4 mg/dl (8.5-10.1); Creatinine Clr Calc Pharmacy 45.5 ml/min; Est GFR (African American) 65.8 ml/min; Est GFR (Non-African American) 56.7 ml/min; Potassium 4.1 mmol/L (3.5-5.1)
[2022-11-30] MEDS: OSELTAMIVIR PHOSPHATE SUSP 30 MG/5 ML UDP PO SCH (08:34)
[2022-11-30] MEDS: guaiFENesin/DEXTROM SYRUP 200MG/20MG 10ML UDC PO PRN (08:35)
[2022-11-30] MEDS: ENOXAPARIN INJ 40 MG/0.4 ML SYR SQ SCH (08:36)
[2022-11-30] MEDS: NICOTINE 21 MG/24 HR TDSY TD SCH (08:36)
[2022-11-30] MEDS: SODIUM CHLORIDE 1 GM TABLET PO SCH (08:38)
[2022-11-30] MEDS: LOSARTAN POTASSIUM 50 MG TAB PO SCH (08:38)
[2022-11-30] MEDS: ASPIRIN 81 MG ECTAB PO SCH (08:38)
[2022-11-30] MEDS: FOLIC ACID 1 MG TAB PO SCH (08:38)
[2022-11-30] MEDS: ROSUVASTATIN CALCIUM 10 MG TAB PO SCH (08:38)
[2022-11-30] MEDS: THIAMINE HCL 100 MG TAB PO SCH (08:38)
[2022-11-30] MEDS: GABAPENTIN 100 MG CAP PO SCH (08:38)
[2022-11-30] MEDS: CYANOCOBALAMIN (B-12) 500 MCG TABLET PO SCH (08:38)
--- NOTE | 2022-11-30 09:28 | Hospitalist Progress Note ---
Date of Service November 30, 2022 Assessment & Plan (1) Influenza A: Plan: Elizabeth is a 62 year old female w/ PmHx chronic hyponatremia, CAD, tobacco use 1ppd, alcohol use 3-4 beers per day, hyperlipidemia, hypertension, osteoporosis, B12 deficiency, Vitamin D deficiency, Folic acid deficiency, anxiety admitted for hyponatremia and gram negaitve uti poa Acute hyponatremia: -Has had workup from nephrology in past, may have poor solute intake, excess fluid intake, possible osmostat or mild SIADH. -Most likely contribution of dehydration in this acute on chronic case from poor PO intake from influenza as well as diarrhea. Influenza A: -Tested positive on Covid/Flu/RSV for Influenza A. -Start patient on Tamiflu 75mg PO BID for 5 days - Zofran 4mg IV q6h ordered for nausea. UTI PT has gram negative organisms, >100,000, curently not on antibiotics Alcohol use: -Patient w/ chronic alcohol use 3-4 beers per day. -Last drink Saturday night (2 beers). -CMP, INR, Alcohol level ordered. -AWSS protocol in place, 1mg IV PRN for score >5. -Continued home Folic acid, Vitamin B12, added Thiamine 100mg daily. -Continue home gabapentin 100 BID. Tobacco use: -Smokes 1 pack per day. -Nicotine patch 21mg TD ordered while inpatient. Hyperlipidemia/CAD: -Continue home rosuvastatin, aspirin 81mg. Hypertension: -Continue home losartan 100mg. DVT Prophylaxis: SCDs, Lovenox 40mg QAM. Code Status: Full Code. . (2) Acute hyponatremia: (3) Hyperlipidemia: (4) Vitamin B12 deficiency: (5) Tobacco abuse: (6) Hypertension: (7) Folic acid deficiency: (8) Anxiety: (9) Vitamin D deficiency: (10) Coronary artery calcification: (11) Alcohol use: Admission and Anticipated Discharge Date Admission Date: November 28, 2022 Results & Data Results & Data ([facility]) Vital Signs (Past 12 Hours) Vital Signs Temp Pulse Pulse Resp BP Pulse Ox O2 Del Method 11/30/22 08:02 98.6 F 91 H 20 117/72 91 Room Air 11/30/22 04:15 98.2 F 96 H 20 117/72 93 Room Air 11/29/22 22:25 93 H 11/29/22 23:23 100.0 F H 94 H 20 113/69 92 Room Air PG Care Time/CCT Total # of Minutes Spent Total Time Spent with Patient: Total time spent is greater than 50% in coordination of care (as documented) at patient's floor/unit and/or counseling patient: Coding Diagnoses Influenza A J10.1 Acute hyponatremia E87.1 Hyperlipidemia E78.5 Vitamin B12 deficiency E53.8 Tobacco abuse Z72.0 Hypertension I10 Folic acid deficiency E53.8 Anxiety F41.9 Vitamin D deficiency E55.9 Coronary artery calcification I25.10; I25.84 Alcohol use Z78.9
--- NOTE | 2022-11-30 18:28 | Discharge Summary ---
Date of Service November 30, 2022 Admission HPI Per Admitting Provider Elizabteh is a 62 year old female w/ PmHx of chronic hyponatremia, CAD, tobacco use 1ppd, alcohol use 3-4 beers per day, hyperlipidemia, hypertension, osteoporosis, B12 deficiency, Vitamin D deficiency, Folic acid deficiency, anxiety who came to the ED from PCP office for acute on chronic hyponatremia. Patient states that she started to have symptoms of lower back ache, congestion, rhinorrhea, nausea, and diarrhea starting Saturday. She states her appetite has been poor since then as well, only able to eat a few pieces of toast and drink a few glasses of water and rudy clifford per day. She states every time she tried to ingest her medications, including the salt tablets, she would vomit them back up. She only vomited with eating/ingesting something. She states she had the diarrhea since Saturday which she was able to take a dose of imodium for. She usually sees nephrology outpatient for her hyponatremia, drinks up to 3-4 beers per day, however last beer was Saturday and she had 2 beers the whole day. She denies any past history of alcohol withdrawal or seizures; she has talked with nephrology in the past about quitting alcohol however difficult for patient to quit. She states she smokes 1 pack of cigarettes per day. She endorses feeling dehydrated. Denies any fevers, chills, shortness of breath or difficulty breathing. Principal Diagnosis hyponatremia influenza diarrhea Discharge Exam The patient appeared stable Vital signs as documented. Lungs are clear to auscultation and appear unlabored Cardiac exam, Rhythm is regular.. No murmurs, rubs or gallops. Abdominal exam reveals normal bowel sounds, soft non tender, no masses Extremities are nonedematous and both pedal pulses are normal. Neurologic exam is alert and oriented, no focal loss of strength or sensation Skin is without bruises or rashes Psychologically is without concerns for anxiety or depression. Discharge Data Allergies Allergy/AdvReac Type Severity Reaction Status Date / Time Iodinated Contrast Media Allergy Severe swelling, Verified 11/28/22 20:18 hives morphine AdvReac Vomiting Verified 11/28/22 20:18 Consultations 11/28/22 20:21 ED Decision to Admit Stat Hospital Course (1) Influenza A: Elizabeth is a 62 year old female w/ PmHx chronic hyponatremia, CAD, tobacco use 1ppd, alcohol use 3-4 beers per day, hyperlipidemia, hypertension, osteoporosis, B12 deficiency, Vitamin D deficiency, Folic acid deficiency, anxiety admitted for hyponatremia and gram negaitve uti poa Acute hyponatremia: -Has had workup from nephrology in past, may have poor solute intake, excess fluid intake, possible osmostat or mild SIADH. -Most likely contribution of dehydration in this acute on chronic case from poor PO intake from influenza as well as diarrhea. Influenza A: -Tested positive on Covid/Flu/RSV for Influenza A. -Renal dose Tamiflu to be completed as an outpatient 30 mg twice daily UTI PT has gram negative organisms, >100,000, curently not on antibiotics patient says she said no urinary symptoms at all. I offered testing prior to going home or tested be put in the laboratory with follow-up she denied she said she think she did get diarrhea into her urine sample. With regard to the diarrhea we attempted to collect a sample for C. difficile testing prior to going home she was unable to produce and so we sent her home with a prescription and a kit to collect stool at home. Alcohol use: -Patient w/ chronic alcohol use 3-4 beers per day. -Last drink Saturday night (2 beers). -Patient did not exhibit any alcohol withdrawal symptoms she was counseled on cessation -Continue home gabapentin 100 BID. Tobacco use: -Smokes 1 pack per day. -Nicotine patch 21mg TD ordered while inpatient. Patient was counseled on tobacco cessation Hyperlipidemia/CAD: -Continue home rosuvastatin, aspirin 81mg. Hypertension: -Continue home losartan 100mg. Code Status: Full Code. . (2) Acute hyponatremia: (3) Hyperlipidemia: (4) Vitamin B12 deficiency: (5) Tobacco abuse: (6) Hypertension: (7) Folic acid deficiency: (8) Anxiety: (9) Vitamin D deficiency: (10) Coronary artery calcification: (11) Alcohol use: Total Time Total Time Spent Total Time Spent (In Minutes): It required greater than 30 minutes to prepare this patient for discharge, work excuse given, prescription for seated testing post discharge was given Discharge Plan Discharge Items Patient Disposition: Home - Self-Care Reason For Visit: HYPONATREMIA Discharge Diagnosis: hyponagtremia influenza diarrhea Activity: Resume your previous activity Non-emergency contact: Primary Care Provider Call non-emergency contact if: your symptoms worsen Follow-up/Referrals: Estefania Gtz MD [Primary Care Provider] - 12/10/22 3:00 pm (Appointment with Yolie Mandujano PA-C) Diet: Regular Ambulatory Orders: Cdiff Toxin B Gene (2yr or >) (Routine) Timeframe: 1 Day Location: Determined by Patient Ordered By: Mario Arango Addtl Attending Provider Instructions: please have lab work next week please follow up with Dr Garrett please submit stool sample Pending Studies at Discharge: No Stand-Alone Forms: My [facility], Work/School Release, Smoking Cessation Medications and DC Order Prescriptions: New oseltamivir [Tamiflu] 6 mg/mL Suspension For Reconstitution 30 mg PO BID 4 Days Qty: 40 0RF Continued losartan 100 mg tablet 100 mg PO DAILY Qty: 90 3RF folic acid 1 mg tablet 1 mg PO DAILY Qty: 90 3RF gabapentin 100 mg capsule 100 mg PO BID Qty: 180 3RF rosuvastatin 10 mg tablet 10 mg PO DAILY Qty: 90 3RF sodium chloride 1,000 mg tablet,soluble 1,000 mg PO BID Qty: 180 3RF cyclobenzaprine 10 mg tablet 10 mg PO BID PRN (Reason: muscle spasm) Qty: 60 2RF cyanocobalamin (vitamin B-12) 1,000 mcg tablet 1,000 mcg PO DAILY Qty: 30 aspirin [Enteric Coated Aspirin] 81 mg tablet,delayed release (DR/EC) 81 mg PO DAILY mirtazapine 15 mg tablet 15 mg PO QPM Qty: 90 3RF lorazepam 0.5 mg tablet 0.5 mg PO TID PRN (Reason: anxiety) Qty: 30 0RF calcium carbonate-vitamin D3 600 mg-5 mcg (200 unit) Tablet 1 tab PO DAILY Discharge Orders: Discharge Order (Routine); Ordered 11/30/22 Ordered By: Mario Arango Admission Data Admit Date/Time: 11/28/22 20:47 Attending Provider: Mario Arango Admit Provider: Best Christina Primary Care Provider: Estefania Gtz Other Providers: Brett Mcwilliams Other Interventions: Discharge Summary Assessment (RN) Last Done: 11/30/22 15:25 Coding Level of Care Code HOSP INP/OBS DISCH >30 MIN Diagnoses Influenza A J10.1 Acute hyponatremia E87.1 Hyperlipidemia E78.5 Vitamin B12 deficiency E53.8 Tobacco abuse Z72.0 Hypertension I10 Folic acid deficiency E53.8 Anxiety F41.9 Vitamin D deficiency E55.9 Coronary artery calcification I25.10; I25.84 Alcohol use Z78.9
== END 2022-11-30 15:55 | disposition home or self-care (01) | DRG 194 ==
LOC: ED 17:30 → SUATTDRO 20:47 → EDINP 20:47 → 2W 21:14

== ENCOUNTER 2023-07-10 19:06 | Inpatient (IN) ==
[2023-07-10] MEDS ORDERED: ONDANSETRON INJ 2 MG/ML 2 ML VIAL IV STA (20:17)
[2023-07-10] MEDS ORDERED: SODIUM CHLORIDE 0.9% 1000ML 500 ML IV ONE (20:18)
[2023-07-10 20:57] LABS: Hematocrit (blood only) 36.9 % (37.0-47.0); Hemoglobin 13.2 g/dl (12.0-16.0); Mean Corpuscular Hemoglobin 31.1 pg (25.0-34.0); Mean Corpuscular Hgb Conc 35.8 g/dL (32.0-36.0); Mean Corpuscular Volume 86.8 fL (80.0-100.0); Mean Platelet Volume 8.3 fL (9.4-12.4); Platelet Count 428 K/uL (130-400); RDW Coefficient of Variation 13.1 % (11.5-14.5); Red Blood Count 4.25 M/uL (4.20-5.40); White Blood Count 17.93 K/ul (4.8-10.8)
[2023-07-10 21:27] LABS: Alanine Aminotransferase 43 U/L (7-52); Albumin Globulin Ratio 1.6 (0.9-2); Albumin Level 4.2 gm/dl (3.4-5.0); Alkaline Phosphatase 102 U/L (34-104); Anion Gap 9 (3-11); Aspartate Aminotransferase 26 U/L (13-39); Bilirubin,Total 0.3 mg/dl (0.2-1.0); Blood Urea Nitrogen 10 mg/dl (6-23); Calcium 8.9 mg/dl (8.6-10.3); Carbon Dioxide 25 mmol/L (21-32); Chloride 84 mmol/L (98-107); Creatinine Clr Calc Pharmacy 61.4 ml/min; Est GFR (African American) 85.8 ml/min; Globulin 2.6 gm/dl (2.5-4.0); Glucose 97 mg/dl (70-99(Fasting)); Potassium 3.9 mmol/L (3.5-5.1); Sodium 118 mmol/L (136-145); Total Protein 6.8 gm/dl (6.0-8.3); Troponin I High Sensitivity 5.2 pg/ml (0-14)
[2023-07-10] MEDS ORDERED: SODIUM CHLORIDE 0.9% 1000ML 1,000 ML IV SCH (21:45)
--- NOTE | 2023-07-10 22:33 | Emergency Department Note ---
Impression & Plan Hyponatremia, Leukocytosis, Low back pain, Alcohol abuse ED Provider Note INFORMANT: Patient ED PROVIDER(S): Abdoul Forrester MD CHIEF COMPLAINT: Syncope PLAN: Disposition: Admitted Condition: Good Outpatient prescription management: none Referral: None MEDICAL DECISION MAKING: Patient presented because of a syncopal episode. No trauma sustained. Work-up was initiated. She was found to have a markedly low sodium of 118. Gentle saline hydration was initiated. Patient was found to have a moderate leukocytosis on chemistry panel. COVID testing was negative. Troponin negative. LFTs unremarkable. Urinalysis pending. Chest x-ray unremarkable. Further management in the hospital will be necessary to further elucidate the issues with the hyponatremia, treat this, and also further evaluate her back pain. Consultation was made with Dr. Brett Mcwilliams of the [facility] service. Case discussed and diagnostics were reviewed. Discussed MR imaging and they will see the patient first and then manage. Patient was evaluated in the ER for further management. Discussed with project manager After review of the information above and other included data, I feel the patient requires admission. Triage Nursing notes reviewed and agree them. Vital Signs: reviewed and remarkable for no significant abnormalities Prior /Outside records reviewed: none Differential diagnosis: Hyponatremia, infection, dehydration, metabolic abnormality, hypo/hyperglycemia, electrolyte disturbance, anemia, hypoxia, cardiac sources, intracerebral event, toxicologic, neurologic, sciatica, DJD, malignancy, as well as other pathologies. Diagnostics, as interpreted by me: ECG: Twelve-lead ECG reveals normal sinus rhythm at [address] elevation or depression. No PACs or PVCs. Cardiac Monitoring: Cardiac monitoring ordered by me: The patient was placed on continuous cardiac monitoring and observed. It revealed a normal sinus rhythm at 72 beats per minute without ectopy or evidence of dysrhythmia. Medical decision rules: none Imaging studies: Chest x-ray reveals COPD findings. No evidence of pneumonia. HPI: The patient is a 63year old female who presents to the Emergency Room with complaints of syncope and dizziness. This started today and is witnessed by significant other. Patient states she feels weak. She was concerned because she has a history of low sodium. Patient has also been dealing with back pain for the last few weeks. She had x-rays done by her primary office which showed DJD. Patient denied any trauma from these episodes. Patient believes that her sodium problem is related to alcohol abuse. Patient states she was clean for some time but then started drinking again. Last drink was 3 days ago. The patient has taken no medication for relieving factors. Current pain is rated as 9/10. Pt denies headache, fevers, chills, diaphoresis, visual changes, neck pain, chest pain, breathing difficulties, nausea, vomiting, abdominal pain, bowel or bladder incontinence, saddle anesthesia, melena, hematochezia, urinary symptoms, numbness, focal weakness, lymphadenopathy, rash, or other complaints. PAST MEDICAL HISTORY: See Below, UTI, hyponatremia, COPD PAST SURGICAL HISTORY: See Below, SOCIAL HISTORY: See Below, positive for alcohol. Smoker. HOME MEDICATIONS: See Below ALLERGIES: See Below VITALS: See Below PHYSICAL EXAMINATION: GENERAL: Awake, alert, nontoxic-appearing, in no distress HENT: Normocephalic, atraumatic. Oropharynx unremarkable. EYES: Normal conjunctiva. Sclera non-icteric. NECK: Inspection normal. Non-tender. Supple. No nuchal rigidity. FROM. No masses. RESPIRATORY: Clear to auscultation. No wheezes. No rales. Normal respiratory effort. CARDIAC: Normal rate. Normal rhythm. No murmurs. No rubs. Extremities warm and well perfused. Pulses equal. No JVD. GI: Soft, non-distended. No tenderness to palpation. No rebound or guarding. No masses. RECTAL: Deferred. MUSCULOSKELETAL: Atraumatic. Chest examination reveals no tenderness. The back is mildly kyphotic on inspection without obvious abnormality. There is no CVA tenderness to palpation. Lumbar tenderness. LOWER EXTREMITIES: Calves are equal size bilaterally and non-tender. Trace edema. No discoloration. NEURO: Normal sensorium. No sensory or motor deficits noted. No saddle anesthesia. SKIN: No rash or jaundice noted. Past Med/Surg History Medical History Anxiety COPD (chronic obstructive pulmonary disease) Coronary artery calcification Folic acid deficiency Hyperlipidemia Hypertension Hyponatremia Osteoporosis Tobacco abuse Vitamin B12 deficiency Vitamin D deficiency Surgical History History of surgery on wrist Family History Mother Family history of cardiac disorder Family history of myocardial infarction Denies family history of Ovarian cancer Prostate cancer Breast cancer Colorectal cancer Social History Smoking Status: Current every day smoker Tobacco Type: Cigarettes Cigarettes Per Day: 1 pack; Second Hand Exposure: No; Do You Dip or Chew Tobacco: No; Hx Alcohol Use: Yes Alcohol type: beer Hx Substance Use: No Preferred Language: Latvian Communication Ability: Effective Circular Tank Cooper Required: No Beliefs That Will Affect Care: None Current Living Situation: Spouse Current Living Situation Comment: lives with agustin current occupational status: employed 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 Feels Safe at Home: Yes Childhood Exposure to Second-Hand Smoke: Yes Dental Care, Regularly: Yes Physical Activity Frequency: Does not Exercise Seatbelt Use: always Sunscreen Use: Yes Assistive Devices: None Allergies Allergies Allergy/AdvReac Type Severity Reaction Status Date / Time Iodinated Contrast Media Allergy Severe swelling, Verified 07/11/23 00:04 hives morphine AdvReac Vomiting Verified 07/11/23 00:04 Home Meds Home Medications Medication Instructions Recorded Confirmed cyanocobalamin (vitamin B-12) 1,000 mcg PO DAILY #30 tabs 07/15/19 07/11/23 1,000 mcg tablet aspirin 81 mg tablet,delayed 81 mg PO DAILY 02/12/21 07/11/23 release (Enteric Coated Aspirin) calcium carbonate 600 mg-vitamin 1 tab PO DAILY 11/28/22 07/11/23 D3 5 mcg (200 unit) tablet magnesium oxide 400 mg PO HS 07/11/23 07/11/23 Previous Rx's Medication Instructions Recorded mirtazapine 15 mg tablet 15 mg PO QPM #90 tabs 06/19/22 rosuvastatin 10 mg tablet 10 mg PO DAILY #90 tabs 12/18/22 omeprazole 20 mg capsule,delayed 20 mg PO DAILY #90 caps 02/07/23 release losartan 100 mg tablet 100 mg PO DAILY #90 tabs 05/03/23 gabapentin 100 mg capsule 100 mg PO TID #270 caps 05/21/23 cyclobenzaprine 10 mg tablet 10 mg PO BID PRN muscle spasm #60 06/17/23 tabs folic acid 1 mg tablet 1 mg PO DAILY #90 tabs 06/27/23 diclofenac sodium 50 mg 50 mg PO Q12H PRN pain #60 tabs 07/10/23 tablet,delayed release Results & Data (ED) Vital Signs Vital Signs - 24 hr 07/10/23 19:15 07/10/23 21:14 07/10/23 21:14 Temperature 36.7 C Temperature Source Skin Pulse Rate 78 Pulse Rate [Apical] 76 Respiratory Rate 18 Respiratory Effort / Characteristics Respiratory Depth Respiratory Pattern Blood Pressure 118/67 Blood Pressure [Right Arm] 135/88 Blood Pressure Mean 84 Blood Pressure Mean [Right Arm] 103 Pulse Oximetry 97 97 Oxygen Delivery Method Room Air Room Air Room Air Sepsis Recent Fever Within 48 Hours No Sepsis New/Unexplained Change in Mental Status No Sepsis Action Taken by Nursing No Action Required Pulse Oximetry Post Tiitration 97 07/10/23 21:14 07/10/23 22:20 07/10/23 23:00 Temperature Temperature Source Pulse Rate 72 Pulse Rate [Apical] 73 Respiratory Rate 16 Respiratory Effort / Characteristics Non-Labored Spontaneous Respiratory Depth Normal Respiratory Pattern Regular Blood Pressure Blood Pressure [Right Arm] 134/81 Blood Pressure Mean Blood Pressure Mean [Right Arm] 98 Pulse Oximetry 97 96 Oxygen Delivery Method Room Air Room Air Sepsis Recent Fever Within 48 Hours Sepsis New/Unexplained Change in Mental Status Sepsis Action Taken by Nursing Pulse Oximetry Post Tiitration Laboratory Data 07/10/23 Unknown 07/10/23 Unknown Lab Results 07/10/23 07/10/23 07/10/23 Range/Units 21:43 Unknown Unknown WBC 17.93 H (4.8-10.8) K/ul RBC 4.25 (4.20-5.40) M/uL Hgb 13.2 (12.0-16.0) g/dl Hct 36.9 L (37.0-47.0) % MCV 86.8 (80.0-100.0) fL MCH 31.1 (25.0-34.0) pg MCHC 35.8 (32.0-36.0) g/dL RDW Std Deviation 41.0 (36.4-46.3) fL RDW Coeff of Travis 13.1 (11.5-14.5) % Plt Count 428 H (130-400) K/uL MPV 8.3 L (9.4-12.4) fL Immature Gran % (Auto) 7.2 % Neut % (Auto) 58.6 % Lymph % (Auto) 25.5 % Simpson % (Auto) 7.6 % Eos % (Auto) 0.8 % Baso % (Auto) 0.3 % Neut # (Auto) 10.50 H (1.40-6.50) K/uL Lymph # (Auto) 4.58 H (1.2-3.4) K/uL Simpson # (Auto) 1.37 H (0.11-0.59) K/uL Eos # (Auto) 0.14 (0-0.50) K/uL Baso # (Auto) 0.05 (0-0.2) K/uL Immature Gran # (Auto) 1.29 H (0.01-0.20) K/uL Sodium 118 L* (136-145) mmol/L Potassium 3.9 (3.5-5.1) mmol/L Chloride 84 L (98-107) mmol/L Carbon Dioxide 25 (21-32) mmol/L Anion Gap 9 (3-11) BUN 10 (6-23) mg/dl Creatinine 0.83 (0.6-1.2) mg/dl Est Cr Clr Drug Dosing 61.4 ml/min Est GFR ( Amer) 85.8 ml/min Est GFR (Non-Af Amer) 74.0 ml/min BUN/Creatinine Ratio 12.0 (10-20) Glucose 97 (70-99(Fasting)) mg/dl Osmolality (280-300) mOsm/kg Calcium 8.9 (8.6-10.3) mg/dl Total Bilirubin 0.3 (0.2-1.0) mg/dl AST 26 (13-39) U/L ALT 43 (7-52) U/L Alkaline Phosphatase 102 (34-104) U/L Troponin I High Sens 5.2 (0-14) pg/ml Total Protein 6.8 (6.0-8.3) gm/dl Albumin 4.2 (3.4-5.0) gm/dl Globulin 2.6 (2.5-4.0) gm/dl Albumin/Globulin Ratio 1.6 (0.9-2) SARS-CoV-2 (PCR) NEGATIVE (Negative) Influenza Type A (PCR) Negative (Neg) Influenza Type B (PCR) Negative (Neg) RSV (RT-PCR) Negative (Neg) 08/16/23 Range/Units Unknown WBC (4.8-10.8) K/ul RBC (4.20-5.40) M/uL Hgb (12.0-16.0) g/dl Hct (37.0-47.0) % MCV (80.0-100.0) fL MCH (25.0-34.0) pg MCHC (32.0-36.0) g/dL RDW Std Deviation (36.4-46.3) fL RDW Coeff of Travis (11.5-14.5) % Plt Count (130-400) K/uL MPV (9.4-12.4) fL Immature Gran % (Auto) % Neut % (Auto) % Lymph % (Auto) % Simpson % (Auto) % Eos % (Auto) % Baso % (Auto) % Neut # (Auto) (1.40-6.50) K/uL Lymph # (Auto) (1.2-3.4) K/uL Simpson # (Auto) (0.11-0.59) K/uL Eos # (Auto) (0-0.50) K/uL Baso # (Auto) (0-0.2) K/uL Immature Gran # (Auto) (0.01-0.20) K/uL Sodium (136-145) mmol/L Potassium (3.5-5.1) mmol/L Chloride (98-107) mmol/L Carbon Dioxide (21-32) mmol/L Anion Gap (3-11) BUN (6-23) mg/dl Creatinine (0.6-1.2) mg/dl Est Cr Clr Drug Dosing ml/min Est GFR ( Amer) ml/min Est GFR (Non-Af Amer) ml/min BUN/Creatinine Ratio (10-20) Glucose (70-99(Fasting)) mg/dl Osmolality 253 L (280-300) mOsm/kg Calcium (8.6-10.3) mg/dl Total Bilirubin (0.2-1.0) mg/dl AST (13-39) U/L ALT (7-52) U/L Alkaline Phosphatase (34-104) U/L Troponin I High Sens (0-14) pg/ml Total Protein (6.0-8.3) gm/dl Albumin (3.4-5.0) gm/dl Globulin (2.5-4.0) gm/dl Albumin/Globulin Ratio (0.9-2) SARS-CoV-2 (PCR) (Negative) Influenza Type A (PCR) (Neg) Influenza Type B (PCR) (Neg) RSV (RT-PCR) (Neg) Administered Medications Discontinued Medications Sodium Chloride (Nss 1000ml) 500 mls @ 999 mls/hr IV .Q31M ONE Stop: 07/10/23 20:48 Last Infusion: 07/10/23 21:09 Dose: 0 mls/hr Documented By: Admin: 07/10/23 20:19 Dose: 999 mls/hr Documented By: JEREMY Sodium Chloride (Nss 1000ml) 1,000 mls @ 75 mls/hr IV .[id number] Stop: 08/09/23 21:44 Last Admin: 07/10/23 21:39 Dose: 75 mls/hr Documented By: VELVET Ondansetron HCl (Ondansetron Inj 2 Mg/Ml 2 Ml Vial) 4 mg IV NOW STA Stop: 07/10/23 20:18 Last Admin: 07/10/23 20:20 Dose: 4 mg Documented By: JEREMY Discharge Plan Visit Data Chief Complaint: Pain (Generalized) Stated Complaint: PASSING OUT AND GEN. PAIN ED Provider: Abdoul Forrester Discharge Problem: Hyponatremia, Leukocytosis, Low back pain, Alcohol abuse Discharge Instructions Interventions: ED Discharge Assessment Last Done: 07/11/23 01:33
[2023-07-10 22:37] LABS: Influenza A virus by PCR Negative (Neg); Influenza B virus by PCR Negative (Neg); RSV by PCR Negative (Neg); SARS CoV2 RNA(COVID-19) Ceph NEGATIVE (Negative)
[2023-07-10 22:47] LABS: Basophils # (auto) 0.05 K/uL (0-0.2); Basophils % (auto) 0.3 %; Eosinophils # (auto) 0.14 K/uL (0-0.50); Eosinophils % (auto) 0.8 %; Immature Granulocytes # (auto) 1.29 K/uL (0.01-0.20); Immature Granulocytes % (auto) 7.2 %; Lymphocytes # (auto) 4.58 K/uL (1.2-3.4); Lymphocytes % (auto) 25.5 %; Monocytes # (auto) 1.37 K/uL (0.11-0.59); Monocytes % (auto) 7.6 %; Neutrophils % (auto) 58.6 %
--- NOTE | 2023-07-10 23:39 | History & Physical Report ---
Date of Service July 10, 2023 Assessment & Plan (1) Hyponatremia: Plan: 63 F with history of chronic hyponatremia, who presents to the emergency room with complaints of weakness, and admitted to the hospital for further management and evaluation of likely euvolemic hypotonic hyponatremia. Hyponatremia -Chronicnoted history of acute on chronic hyponatremia. Follows with Dr. Garrett of [facility]. Managed with sodium chloride tabs 1 g daily. -Na-118 on admission. Serum osmolality 256. Urine osmolality, urine sodium pending, the patient appears euvolemic. -Presentation appears consistent with SIADH, though potomania also possible given patient's history of alcohol consumption. Low concern for more concerning etiologies like adrenal insufficiency. -S/p 0.5 L normal saline bolus, maintenance IV NS@75 mL/h * [facility] * BMP checks every 4 hours with goal of raising [Na] by ~4 mEq in first 8 hours, subsequent stabilization over the first 24 hours. * Maintenance IV normal saline, as above * Oral sodium tablets 2 g daily. Titrate up if necessary * Fluid restriction1.2 L/day Leukocytosis -WBC 17.93 on admission. Afebrile. No recent illnesses. No prescribed steroid use. BSG-97. -Likely 2/2 recent alcohol consumption. Lower suspicion for infectious process, though inflammatory etiology cannot be ruled out. * Trend vitals, CBC. Initiate broad-spectrum antibiotics if patient becomes more symptomatic. * CRP, procalcitonin, TSH pending. Appreciate results. DJD/OA -Chronic since May 2023. Predominantly right-sided lower back pain with radiation to the buttock, per PCP note. Subsequent XR revealed DJD. * Tylenol 1000 mg every 8 hours as needed Hypertension -Chronic. Managed on losartan 100 mg daily. * Held on admission due to soft BPs. May reinitiate as indicated if BP becomes uncontrolled. Otherwise hold. Hyperlipidemia -Chronic. Managed on rosuvastatin 10 mg. -Patient did complain of weakness on arrival. Very low concern for statin myalgia however, especially at such low doselikely due to primary hyponatremic process. * Continue rosuvastatin Peripheral neuropathy -History of chronic nerve pain in her feet. Noted history of B12, folic acid deficiency, which may be source of neuropathy, per PCP note this has never been formally evaluated. -Well managed on low-dose gabapentin, vitamin B12, and folic acid. * Continue gabapentin 100 mg 3 times daily * Vitamin B12 1000 mcg daily * Folic acid 1 mg daily Anxiety -Chronic. Managed on mirtazapine 15 mg every afternoon * Continue mirtazapine Code: Full code Dispo: Med-Surg telemetry FEN/GI: Heart healthy DVT Prophylaxis: Lovenox 40 mg q24h PT/OT: No Consults: None, though may consider nephrology as patient is known to Dr. Garrett. Case Management: Yes, for alcohol use disorder outpatient counseling (2) Leukocytosis: (3) Hypertension: (4) Hyperlipidemia: (5) Coronary artery calcification: (6) Low back pain: (7) Alcohol abuse: (8) Vitamin B12 deficiency: (9) Vitamin D deficiency: (10) Folic acid deficiency: (11) Anxiety: History of Present Illness Primary Care Provider: Estefania Gtz MD Elizabeth is a 63-year-old woman with a past medical history of hyponatremia, COPD, hypertension, osteoporosis, anxiety, and hyperlipidemia, who presented to the emergency room earlier today with a complaint of dizziness and generalized weakness. She became concerned about a low sodium due to her history of low sodium, following a recent relapse to alcohol use. Patient used to drink fairly regularly but stopped due to medical advice. She began taking her sodium chloride tabs before presenting to the hospital. She reports her last drink was 3 days ago. She denies headache, fever, chills, visual changes, chest pain, shortness of breath, nausea, or recent illness. In the ED, she was found to have hyponatremia of 118. WBC was also notably elevated at 17.93. Serum osmolality was decreased to 253. CXR, per my read, showed no evidence of an acute process. Urine osmoles, urine sodium remain pending as of at the time of this note. She received IV Zofran for nausea, and 1/2 L bolus of normal saline, before being started on maintenance fluids. Hospitalist service was then consulted for admission. Allergies Allergy/AdvReac Type Severity Reaction Status Date / Time Iodinated Contrast Media Allergy Severe swelling, Verified 07/11/23 00:04 hives morphine AdvReac Vomiting Verified 07/11/23 00:04 Home Medications Medication Instructions Recorded Confirmed Type cyanocobalamin (vitamin B-12) 1,000 mcg PO DAILY #30 tabs 07/15/19 07/11/23 History 1,000 mcg tablet aspirin 81 mg tablet,delayed 81 mg PO DAILY 02/12/21 07/11/23 History release (Enteric Coated Aspirin) mirtazapine 15 mg tablet 15 mg PO QPM #90 tabs 06/19/22 07/11/23 Rx calcium carbonate 600 mg-vitamin 1 tab PO DAILY 11/28/22 07/11/23 History D3 5 mcg (200 unit) tablet rosuvastatin 10 mg tablet 10 mg PO DAILY #90 tabs 12/18/22 07/11/23 Rx omeprazole 20 mg capsule,delayed 20 mg PO DAILY #90 caps 02/07/23 07/11/23 Rx release losartan 100 mg tablet 100 mg PO DAILY #90 tabs 05/03/23 07/11/23 Rx gabapentin 100 mg capsule 100 mg PO TID #270 caps 05/21/23 07/11/23 Rx cyclobenzaprine 10 mg tablet 10 mg PO BID PRN muscle spasm #60 06/17/23 07/11/23 Rx tabs folic acid 1 mg tablet 1 mg PO DAILY #90 tabs 06/27/23 07/11/23 Rx diclofenac sodium 50 mg 50 mg PO Q12H PRN pain #60 tabs 07/10/23 07/11/23 Rx tablet,delayed release magnesium oxide 400 mg PO HS 07/11/23 07/11/23 History Past Med/Surg History Medical History Anxiety COPD (chronic obstructive pulmonary disease) Coronary artery calcification Folic acid deficiency Hyperlipidemia Hypertension Hyponatremia Osteoporosis Tobacco abuse Vitamin B12 deficiency Vitamin D deficiency Surgical History History of surgery on wrist Family History Mother Family history of cardiac disorder Family history of myocardial infarction Denies family history of Ovarian cancer Prostate cancer Breast cancer Colorectal cancer Social History Smoking Status: Current every day smoker Tobacco Type: Cigarettes Cigarettes Per Day: 1 pack; Second Hand Exposure: No; Do You Dip or Chew Tobacco: No; Hx Alcohol Use: Yes Alcohol type: beer Hx Substance Use: No Preferred Language: Georgian Communication Ability: Effective Brand Advocate Required: No Beliefs That Will Affect Care: None Current Living Situation: Spouse Current Living Situation Comment: lives with fiyajaira current occupational status: employed 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 Normal conjunctiva, anicteric sclera. Oropharynx normal. Respiratory: Normal respiratory effort, CTABL. Cardiovascular: RRR without murmurs, gallops, or rubs. No pedal edema. Neuro: Alert and oriented x3. Results & Data Results & Data Vital Signs (Past 12 Hours) Vital Signs Temp Pulse Pulse Resp BP BP Pulse Ox 07/10/23 22:20 72 07/10/23 21:14 97 07/10/23 21:14 07/10/23 21:14 76 135/88 97 07/10/23 19:15 36.7 C 78 18 118/67 97 O2 Del Method 07/10/23 22:20 07/10/23 21:14 Room Air 07/10/23 21:14 Room Air 07/10/23 21:14 Room Air 07/10/23 19:15 Room Air Supervising Physician Co-Signing Physician Notes Attending addendum: I have physically seen this patient, have supervised the medical residents activities, and agree with the H&P unless as otherwise noted. Assessment and Plan: Hyponatremia- Sodium 118 on admission, with serum osmolality 256, and urine osmolality and urine sodium pending Main considerations are SIADH, beer Potomania and then compensatory polydipsia She reports her last alcohol intake was 3 days ago, and since that time she has been drinking large amounts of water Fluid restriction 1200 mL/day Starting sodium chloride 1 g p.o. twice daily Serial BMP and magnesium levels as noted Follows with nephrology Dr. Garrett in the outpatient setting No sign of active infection Hypertension-hold losartan due to relatively low blood pressures Hyperlipidemia- Continue rosuvastatin Remaining orders and notations as noted Resident Activity Tracking Resident Involvement: Resident Care Provided Care Provided: [facility]
[2023-07-11 01:57] LABS: C Reactive Protein < 0.50 mg/dl (0-0.5)
[2023-07-11 02:10] LABS: Appearance Urine Clear (Clear); Bacteria Urine Automated 4+ (Negative); Bilirubin Urine Negative (Negative); Blood Urine Negative (Negative); Color Urine Yellow; Epithelial Cell Urine Auto >30 /lpf (0-5); Glucose Urine UA Negative (Negative); Ketones Urine Negative (Negative); Leukocyte Esterase Urine 1+ (Negative); Nitrite Urine Negative (Negative); Protein Urine Negative (Negative); RBC Urine Automated 0-4 /hpf (0-4); Specific Gravity Urine 1.008 (1.000-1.030); Urobilinogen Urine Negative (Negative); pH Urine 5.5 (4.5-7.5)
[2023-07-11 03:45] LABS: Hematocrit (blood only) 30.4 % (37.0-47.0); Hemoglobin 10.9 g/dl (12.0-16.0); Mean Corpuscular Hemoglobin 30.8 pg (25.0-34.0); Mean Corpuscular Hgb Conc 35.9 g/dL (32.0-36.0); Mean Corpuscular Volume 85.9 fL (80.0-100.0); Mean Platelet Volume 8.1 fL (9.4-12.4); Platelet Count 333 K/uL (130-400); RDW Standard Deviation 40.4 fL (36.4-46.3); Red Blood Count 3.54 M/uL (4.20-5.40); White Blood Count 12.91 K/ul (4.8-10.8)
[2023-07-11] MEDS ORDERED: SODIUM CHLORIDE 1 GM TABLET PO STA (04:05)
[2023-07-11 04:34] LABS: BUN Creatinine Ratio 14.5 (10-20); Calcium 7.6 mg/dl (8.6-10.3); Creatinine Clr Calc Pharmacy 73.9 ml/min; Est GFR (African American) 105.9 ml/min; Est GFR (Non-African American) 91.4 ml/min; Potassium 4.4 mmol/L (3.5-5.1)
--- NOTE | 2023-07-11 07:31 | Hospitalist Progress Note ---
Date of Service July 11, 2023 Assessment & Plan (1) Hyponatremia: Plan: 63 F with history of chronic hyponatremia, who presents to the emergency room with complaints of weakness, and admitted to the hospital for further management and evaluation of likely euvolemic hypotonic hyponatremia. Hyponatremia -Chronicnoted history of acute on chronic hyponatremia. Follows with Dr. Garrett of [facility]. Managed with sodium chloride tabs 1 g daily. -Na-118 on admission. Serum osmolality 256. Urine osmolality, urine sodium pending, the patient appears euvolemic. -Presentation appears consistent with SIADH, though potomania also possible given patient's history of alcohol consumption. Low concern for more concerning etiologies like adrenal insufficiency. -S/p 0.5 L normal saline bolus, maintenance IV NS@75 mL/h * Oral sodium tablets 2 g daily. * Fluid restriction1.2 L/day * Na this morning 125 Leukocytosis -WBC 17.93 on admission. Afebrile. No recent illnesses. No prescribed steroid use. BSG-97. -Likely 2/2 recent alcohol consumption. Lower suspicion for infectious process, though inflammatory etiology cannot be ruled out. * Trend vitals, CBC. Initiate broad-spectrum antibiotics if patient becomes more symptomatic. DJD/OA -Chronic since May 2023. Predominantly right-sided lower back pain with radiation to the buttock, per PCP note. Subsequent XR revealed DJD. * Tylenol 1000 mg every 8 hours as needed Hypertension -Chronic. Managed on losartan 100 mg daily. * Held on admission due to soft BPs. May reinitiate as indicated if BP becomes uncontrolled. Otherwise hold. Hyperlipidemia -Chronic. Managed on rosuvastatin 10 mg. -Patient did complain of weakness on arrival. Very low concern for statin myalg ia however, especially at such low doselikely due to primary hyponatremic process. * Continue rosuvastatin Peripheral neuropathy -History of chronic nerve pain in her feet. Noted history of B12, folic acid deficiency, which may be source of neuropathy, per PCP note this has never been formally evaluated. -Well managed on low-dose gabapentin, vitamin B12, and folic acid. * Continue gabapentin 100 mg 3 times daily * Vitamin B12 1000 mcg daily * Folic acid 1 mg daily Anxiety -Chronic. Managed on mirtazapine 15 mg every afternoon * Continue mirtazapine Code: Full code Dispo: Med-Surg telemetry FEN/GI: Heart healthy DVT Prophylaxis: Lovenox 40 mg q24h PT/OT: No Consults: None, though may consider nephrology as patient is known to Dr. Garrett. Case Management: Yes, for alcohol use disorder outpatient counseling (2) Leukocytosis: (3) Hypertension: (4) Hyperlipidemia: (5) Coronary artery calcification: (6) Low back pain: (7) Alcohol abuse: (8) Vitamin B12 deficiency: (9) Vitamin D deficiency: (10) Folic acid deficiency: (11) Anxiety: Admission and Anticipated Discharge Date Admission Date: July 11, 2023 Subjective 63 F with history of chronic hyponatremia, who presents to the emergency room with complaints of weakness, and admitted to the hospital for further management and evaluation of likely euvolemic hypotonic hyponatremia. Today, pt states that she is feeling well. She states that she was very thirsty yesterday and so she was drinking a large amount of water all day yesterday. She states she also normally drinks a lot of water throughout the day except when she is at work and has less time to stop and drink. No complaints today otherwise. Review of Systems Review of Systems: Constitutional: denies fever, chills, Cardio: denies chest pain, palpitations Resp: denies shortness of breath, cough GI: denies abdominal pain, nausea, vomiting, : denies pain with urination, Physical Exam Physical Exam: General:Alert and oriented, no acute distress, Cardio: Regular rate and rhythm, no murmur, Resp:Lungs clear to auscultation b/l, no wheezes or rhonchi, GI: Soft and nontender, nondistended, bowel sounds active Skin: Warm, pink, dry, Psych: Mood-affect congruence. Results & Data Results & Data Vital Signs (Past 12 Hours) Vital Signs Pulse Pulse Resp BP BP Pulse Ox O2 Del Method 07/11/23 06:00 71 16 133/72 96 07/11/23 05:30 70 14 114/70 95 07/11/23 04:30 72 14 143/82 H 95 07/11/23 04:00 70 16 132/65 95 07/11/23 03:31 73 18 118/67 95 07/11/23 03:00 73 20 142/69 H 97 07/11/23 02:30 71 18 118/74 95 07/11/23 02:00 74 22 143/86 H 97 07/11/23 01:30 70 16 127/76 97 07/11/23 01:46 75 07/11/23 01:00 74 20 127/79 96 07/11/23 00:33 72 16 125/72 95 Room Air 07/10/23 23:00 73 16 134/81 96 Room Air 07/10/23 22:20 72 07/10/23 21:14 97 Room Air 07/10/23 21:14 Room Air 07/10/23 21:14 76 135/88 97 Room Air
--- NOTE | 2023-07-11 07:46 | XRay Report ---
XR chest 1V not portable CLINICAL HISTORY: Chest pain, nonspecific TECHNIQUE: Single frontal radiograph of the chest was obtained. Comparison: Comparison is made to chest radiograph 01/07/2016 FINDINGS: No lines and tubes are seen. The cardiomediastinal silhouette is normal. The lungs are clear. No evid ence of pleural effusion or pneumothorax. IMPRESSION: No acute chest disease. ACT 112: Negative or not required by law. Electronically signed by: Alfred Rosa M.D. 07/11/2023 7:44 AM
[2023-07-11 08:29] LABS: Creatinine Clr Calc Pharmacy 73.9 ml/min; Est GFR (African American) 105.9 ml/min; Est GFR (Non-African American) 91.4 ml/min; Potassium 4.4 mmol/L (3.5-5.1)
[2023-07-11] MEDS: GABAPENTIN 100 MG CAP PO SCH ×2 (08:41→13:43)
[2023-07-11] MEDS ORDERED: ROSUVASTATIN CALCIUM 10 MG TAB PO SCH (09:00)
[2023-07-11] MEDS ORDERED: ENOXAPARIN INJ 40 MG/0.4 ML SYR SQ SCH (09:00)
[2023-07-11] MEDS ORDERED: SODIUM CHLORIDE 1 GM TABLET PO SCH (09:00)
[2023-07-11] MEDS ORDERED: CYANOCOBALAMIN (B-12) 500 MCG TABLET PO SCH (09:00)
[2023-07-11] MEDS ORDERED: FOLIC ACID 1 MG TAB PO SCH (09:00)
[2023-07-11] MEDS ORDERED: CHOLECALCIFEROL 5,000 UNITS 125 MCG TAB PO SCH (09:00)
[2023-07-11] MEDS ORDERED: NICOTINE 21 MG/24 HR TDSY TD SCH (09:00)
[2023-07-11 11:42] LABS: BUN Creatinine Ratio 15.2 (10-20); Calcium 8.2 mg/dl (8.6-10.3); Creatinine Clr Calc Pharmacy 77.3 ml/min; Est GFR (African American) 107.4 ml/min; Est GFR (Non-African American) 92.7 ml/min; Potassium 4.4 mmol/L (3.5-5.1)
--- NOTE | 2023-07-11 15:04 | Discharge Summary ---
Date of Service July 11, 2023 Admission HPI Per Admitting Provider Elizabeth is a 63-year-old woman with a past medical history of hyponatremia, COPD, hypertension, osteoporosis, anxiety, and hyperlipidemia, who presented to the emergency room earlier today with a complaint of dizziness and generalized weakness. She became concerned about a low sodium due to her history of low sodium, following a recent relapse to alcohol use. Patient used to drink fairly regularly but stopped due to medical advice. She began taking her sodium chloride tabs before presenting to the hospital. She reports her last drink was 3 days ago. She denies headache, fever, chills, visual changes, chest pain, shortness of breath, nausea, or recent illness. In the ED, she was found to have hyponatremia of 118. WBC was also notably elevated at 17.93. Serum osmolality was decreased to 253. CXR, per my read, showed no evidence of an acute process. Urine osmoles, urine sodium remain pending as of at the time of this note. She received IV Zofran for nausea, and 1/2 L bolus of normal saline, before being started on maintenance fluids. Hospitalist service was then consulted for admission. Admission Exam Per Admitting Provider General: Mildly tired-appearing woman in no acute distress HEENT: PERRLA. Normal conjunctiva, anicteric sclera. Oropharynx normal. Respiratory: Normal respiratory effort, CTABL. Cardiovascular: RRR without murmurs, gallops, or rubs. No pedal edema. Neuro: Alert and oriented x3. Principal Diagnosis Hyponatremia Discharge Exam General:Alert and oriented, no acute distress, Cardio: Regular rate and rhythm, no murmur, Resp:Lungs clear to auscultation b/l, no wheezes or rhonchi, GI: Soft and nontender, nondistended, bowel sounds active Skin: Warm, pink, dry, Psych: Mood-affect congruence. Discharge Data Allergies Allergy/AdvReac Type Severity Reaction Status Date / Time Iodinated Contrast Media Allergy Severe swelling, Verified 07/11/23 00:04 hives morphine AdvReac Vomiting Verified 07/11/23 00:04 Consultations 07/11/23 03:59 ED Decision to Admit Stat Hospital Course (1) Hyponatremia: 63 F with history of chronic hyponatremia, who presents to the emergency room with complaints of weakness, and admitted to the hospital for further management and evaluation of likely euvolemic hypotonic hyponatremia. Hyponatremia -Chronicnoted history of acute on chronic hyponatremia. Follows with Dr. Garrett of [facility]. Managed with sodium chloride tabs 1 g daily. -Na-118 on admission. Serum osmolality 256. Urine osmolality, urine sodium pending, the patient appears euvolemic. -Presentation appears consistent with SIADH, though potomania also possible given patient's history of alcohol consumption. Low concern for more concerning etiologies like adrenal insufficiency. -S/p 0.5 L normal saline bolus, maintenance IV NS@75 mL/h * Oral sodium tablets 2 g given * Fluid restriction1.2 L/day * Na this morning 125, repeat 126, stable Leukocytosis -WBC 17.93 on admission. Afebrile. No recent illnesses. No prescribed steroid use. BSG-97. -Likely 2/2 recent alcohol consumption. Lower suspicion for infectious process, though inflammatory etiology cannot be ruled out. DJD/OA -Chronic since May 2023. Predominantly right-sided lower back pain with radiation to the buttock, per PCP note. Subsequent XR revealed DJD. * Tylenol 1000 mg every 8 hours as needed Hypertension -Chronic. Managed on losartan 100 mg daily. * Held on admission due to soft BPs, can restart once discharged home Hyperlipidemia -Chronic. Managed on rosuvastatin 10 mg. -Patient did complain of weakness on arrival. Very low concern for statin myalgia however, especially at such low doselikely due to primary hyponatremic process. * Continue rosuvastatin Peripheral neuropathy -History of chronic nerve pain in her feet. Noted history of B12, folic acid deficiency, which may be source of neuropathy, per PCP note this has never been formally evaluated. -Well managed on low-dose gabapentin, vitamin B12, and folic acid. * Continue gabapentin 100 mg 3 times daily * Vitamin B12 1000 mcg daily * Folic acid 1 mg daily Anxiety -Chronic. Managed on mirtazapine 15 mg every afternoon * Continue mirtazapine Code: Full code Disposition: Home (2) Leukocytosis: (3) Hypertension: (4) Hyperlipidemia: (5) Coronary artery calcification: (6) Low back pain: (7) Alcohol abuse: (8) Vitamin B12 deficiency: (9) Vitamin D deficiency: (10) Folic acid deficiency: (11) Anxiety: Total Time Total Time Spent Total Time Spent (In Minutes): Per attending attestation. Discharge Plan Discharge Items Patient Disposition: Home - Self-Care Reason For Visit: SYNCOPE, DIZZINESS Discharge Diagnosis: Hyponatremia Activity: Per Instructions section Non-emergency contact: Primary Care Provider Call non-emergency contact if: you have any medication questions and your symptoms worsen Follow-up/Referrals: Estefania Gtz MD [Primary Care Provider] - 07/24/23 2:00 pm Diet: Regular Ambulatory Orders: Basic Metabolic Panel (Routine) Timeframe: 20230715 Location: Determined by Patient Ordered By: Juliann Peralta Complete Blood Count with Diff (Routine) Timeframe: 20230715 Location: Determined by Patient Ordered By: Juliann Peralta Addtl Attending Provider Instructions: You were admitted for hyponatremia (low blood sodium level). You were treated with fluid restriction and salt tablets, and your sodium improved from 118 on admission to 126. Due to improved sodium levels, we feel it is safe for you to return home. Aim to have a water intake at home around 60 to 80 ounces of water daily. This is about 6 glasses of water. You are to get a CBC (blood count) and BMP (electrolyte panel) to recheck your sodium and to ensure your elevated white blood cell count on admission has gone back to normal. Please get these labs on Saturday next week, 07/15/23, and make an appointment to see your PCP within 1 week of discharge from the hospital. Medications: Your medication list has been reviewed and reconciled upon discharge to ensure accuracy and continuity of care. An updated list of all your medications is included with your hospital discharge paperwork. Please review this list closely, and make note of any changes. If you have any issues filling these prescriptions, please call [phone] and ask to leave a message for Dr. Peralta. Take your medications as instructed; do not skip a dose of your medicines. Make sure all of your doctors know every medicine you are taking (including [id number] medicines, vitamins, and supplements). Call your primary care provider before taking any new medicines (including over- the-counter medicines, vitamins, and supplements), because some of these may interact with your current medications, or may make your symptoms worse. Tell your primary care provider if you cannot afford your medications. Activity: You can do normal everyday activities as your body allows. Take rest breaks if you feel tired. Do not overexert. Stop activity if you have pain, shortness of breath or feel dizzy. Follow-up appointments: Make an appointment with your primary care physician within one week of discharge. A copy of this summary will be sent to them. Every time you see your primary care physician, or any other doctor, bring your medication list, a list of questions, and your recent weights. CONTACT YOUR PRIMARY CARE PROVIDER if you experience any of the following: Shortness of breath or difficulty breathing Swelling of your feet, ankles, hands or abdomen Feeling tired with normal activity or experiencing dizziness or fainting Difficulty following your treatment plan, or difficulty taking medications CALL 911 OR GO TO THE EMERGENCY DEPARTMENT if you experience any of the following: Severe abdominal pain or nausea/vomiting Severe chest pain, or chest pain that radiates (moves) to your jaw or arm Sudden, severe shortness of breath or difficulty breathing Thank you for allowing us to participate in your care. Pending Studies at Discharge: No Stand-Alone Forms: My [facility] Vital Access, Work/School Release Medications and DC Order Prescriptions: Continued omeprazole 20 mg capsule,delayed release(DR/EC) 20 mg PO DAILY Qty: 90 3RF losartan 100 mg tablet 100 mg PO DAILY Qty: 90 3RF cyclobenzaprine 10 mg tablet 10 mg PO BID PRN (Reason: muscle spasm) Qty: 60 2RF folic acid 1 mg tablet 1 mg PO DAILY Qty: 90 3RF diclofenac sodium 50 mg tablet,delayed release (DR/EC) 50 mg PO Q12H PRN (Reason: pain) Qty: 60 0RF cyanocobalamin (vitamin B-12) 1,000 mcg tablet 1,000 mcg PO DAILY Qty: 30 aspirin [Enteric Coated Aspirin] 81 mg tablet,delayed release (DR/EC) 81 mg PO DAILY rosuvastatin 10 mg tablet 10 mg PO DAILY Qty: 90 3RF gabapentin 100 mg capsule 100 mg PO TID Qty: 270 3RF mirtazapine 15 mg tablet 15 mg PO QPM Qty: 90 3RF magnesium oxide 400 mg magnesium Tablet 400 mg PO HS calcium carbonate-vitamin D3 600 mg-5 mcg (200 unit) Tablet 1 tab PO DAILY Discharge Orders: Discharge Order (Routine); Ordered 07/11/23 Ordered By: Juliann Peralta Admission Data Admit Date/Time: 07/11/23 00:00 Attending Provider: Jean Mayo Admit Provider: Mark Anthony Ravi Primary Care Provider: Estefania Gtz Other Providers: Brett Mcwilliams Other Interventions: Discharge Summary Assessment (RN) Last Done: 07/11/23 16:42 Supervising Physician Co-Signing Physician Notes I personally examined the patient and verified all pacheco points of history and exam, discussed case, and agree with decision making with Dr Peralta feeling better wants to go home dranka lot of water yesterday. vitals noted nad heent nc at mmm breathing unlabored polydipsia superimposed on what appears to be reset osmostat - improved enough to be safe for home. 60-80oz fluids rahter than ad jose. labs saturday. sees nephro saturday. WBC nonspecific and improving. zero urinary sypmptoms. no other s/s infection. safe for home. otherwise as above Resident Activity Tracking Resident Involvement: Resident Care Provided Care Provided: Adult Hospital Medicine
--- NOTE | 2023-07-11 15:42 | Electrocardiogram Report ---
Test Reason : Blood Pressure : / mmHG Vent. Rate : 077 BPM Atrial Rate : 077 BPM P-R Int : 134 ms QRS Dur : 066 ms QT Int : 364 ms P-R-T Axes : 028 046 051 degrees QTc Int : 411 ms Normal sinus rhythm Normal ECG When compared with ECG of 28-NOV-2022 17:45, No significant change was found Confirmed by Bj Choi ([id number]) on 07/11/2023 3:42:20 PM Referred By: REFERRED SELF Confirmed By:Bj Choi
--- NOTE | 2023-07-11 18:07 | Billing Data ---
Date of Service July 11, 2023 Coding Level of Care Code 04626 IN/OBS DISCH 30 MIN/LESS
[2023-07-11] MEDS ORDERED: MIRTAZAPINE TAB 15 MG TAB PO SCH (21:00)
--- NOTE | 2023-07-12 05:20 | Billing Data ---
Date of Service July 12, 2023 Coding Level of Care Code 19795 INT INP/OBS CARE
[2023-07-12] MEDS ORDERED: THIAMINE HCL 100 MG TAB PO SCH (09:00)
== END 2023-07-11 17:12 | disposition home or self-care (01) | DRG 641 ==
LOC: ED 19:06 → EDINP 07-11 → SUATTDRO 07-11 → 2N 07-11 01:33

== ENCOUNTER 2025-08-20 17:30 | Inpatient (IN) ==
[2025-08-20 20:24] LABS: Hematocrit (blood only) 35.8 % (37.0-47.0); Hemoglobin 11.9 g/dl (12.0-16.0); Immature Granulocytes # (auto) 0.05 K/uL (0.01-0.20); Immature Granulocytes % (auto) 0.5 %; Mean Corpuscular Hemoglobin 29.2 pg (25.0-34.0); Mean Corpuscular Volume 88.0 fL (80.0-100.0); Platelet Count 309 K/uL (130-400); RDW Standard Deviation 41.8 fL (36.4-46.3); Red Blood Count 4.07 M/uL (4.20-5.40); White Blood Count 10.05 K/ul (4.8-10.8)
--- NOTE | 2025-08-20 20:28 | Emergency Department Note ---
Impression & Plan ROMY (acute kidney injury), Dehydration, Acute UTI, Hypotension, Hyponatremia ED Provider Note CHIEF COMPLAINT: Vomiting, kidney issues HISTORY OF PRESENTING ILLNESS: This 65-year-old female patient presents to the emergency department with her fiance for evaluation of nausea, vomiting, and diarrhea for the past 3 days with outpatient blood work that showed elevated renal functions and decreased sodium level. The patient has a history of SIADH. She takes sodium pills as an outpatient. She denies any fevers. She denies chest pain or SOB. Denies abdominal pain. No known ill contacts other than her dog that has vomiting and diarrhea as well. Was having up to 6 episodes of diarrhea a day, but it is starting to slow down. Denies recent antibiotic use, recent travel, or drinking from outside water sources/well water. She denies a previous history of C. diff. REVIEW OF SYSTEMS: See HPI for pertinent positives and pertinent negatives. ALLERGIES: IV contrast, Morphine MEDICATIONS: See below PAST MEDICAL HISTORY: See below PHYSICAL EXAM: VITALS: Vitals are noted on the nurse's note and reviewed by myself. GENERAL: Non toxic, in no acute distress, non-diaphoretic. SKIN: Capillary refill <2 sec. EYES: PERRLA. EOMI. Conjunctivae without injection, sclerae without icterus. NOSE: Patent without discharge. MOUTH: Mucous membranes moist. Uvula midline. Airway patent. NECK: Supple without nuchal rigidity. HEART: Regular rate and rhythm without murmurs gallops or rubs. LUNGS: Clear to auscultation bilaterally without wheezes, rales or rhonchi. No retractions or accessory muscle use. ABDOMEN: Positive bowel sounds x 4. Normal tympanic percussion. Soft, nontender to palpation. No masses or hepatosplenomegaly. Vidales sign negative. No CVA tenderness. No guarding, rigidity, or rebound tenderness. No focal RLQ or LLQ tenderness. MUSCULOSKELETAL: No gross musculoskeletal defects. NEURO: Patient was alert and oriented. No focal neurological deficits. DIFFERENTIAL DIAGNOSIS: Differential diagnosis includes gastroenteritis, C. difficile, bacterial stool infection, viral stool infection, acute renal failure, dehydration, sepsis, food borne illness, infections, appendicitis, diverticulitis, inflammatory bowel disease, obstruction, GI bleed, biliary pathology, volvulus, as well as other pathologies. ED COURSE AND MEDICAL DECISION MAKING: MEDICATIONS GIVEN: A total of 1250 mL normal saline solution bolus, Rocephin 2 g IV. MONITOR: Continuous cardiothoracic surgeon: Order was placed for continuous cardiothoracic surgeon. Patient was placed on the cardiothoracic surgeon and continuous pulse ox. Patient was noted to be in normal sinus rhythm at an initial rate of 80 bpm per my interpretation. INTERPRETATION OF LABS: I interpreted the labs with full lab results as below in the lab section of this note. Laboratory results pertinent to the emergent complaint are discussed in the MDM section below. The patient was advised to follow up with their PCP and/or specialist(s) for further outpatient monitoring and management of any abnormal results. INTERPRETATION OF IMAGING: Imaging studies were interpreted by myself and read by radiology as per the imaging section of this note. The patient was advised to follow up with their PCP and/or specialist(s) for further outpatient management of any non-emergent abnormal findings. CT scan of the abdomen and pelvis without contrast showed a possible ileus or possible nonspecific enteritis, but no other acute abnormalities. EXTERNAL RECORDS REVIEWED: I reviewed the patient's outpatient laboratory studies CHRONIC MEDICAL/SOCIAL CONDITIONS AFFECTING CARE: SIADH CONSULTATIONS: On-call hospitalist CRITICAL CARE: I have personally spent 45 minutes of critical care time in the direct management of this patient. This includes bedside care, interpretation of diagnostic studies, and testing, discussion with consultants, patient, and family members, and other required patient management activities. This 45 minutes is in excess of all separately billable procedures. MDM SUMMARY: The patient was seen during a time of extreme volume and extreme acuity. Nursing triage protocols were initiated with IV lock, labs, and/or imaging studies conducted by protocol in the triage area. The patient was initially evaluated in a triage room and then re-evaluated once they were taken back to an exam room. The patient has been having nausea, vomiting, and diarrhea for the past 3 days. She denies any abdominal pain, chest pain, or shortness of breath. The patient has a history of SIADH and is on sodium pills. The patient states that she has not been able to eat or drink much of anything because of the nausea and vomiting. She had outpatient laboratory studies that showed a creatinine of 4.04, BUN 28, sodium 128, calcium 8.3, and glucose 130. The patient was sent to the ER for admission. Initially the patient was gently hydrated with normal saline solution at 125 mL/h due to her history of SIADH. However, the patient became hypotensive while in the ER. She was then given a 250 mL normal saline solution bolus. When the patient's blood pressure still did not improve, she was given additional IV fluid bolus for a total of 1250 mL normal saline solution bolus. There was initially concern for possible sepsis given the patient's hypotension, UTI, and elevated procalcitonin. The patient was not given her full sepsis fluid volume due to her history of SIADH. The patient's blood pressure did improve with the IV fluids, but remained mildly hypotensive. After blood cultures and urine culture were obtained, the patient was given Rocephin 2 g IV. After discussion with Dr. Wang, we did not feel that pressors were needed at this time. The patient declined any pain medication or nausea medication while in the emergency department. White blood cell count normal at 10.05. Hemoglobin slightly low at 11.9. Platelet count normal at 309. Repeat CMP had been ordered by nursing protocol and showed a sodium of 128, potassium 3.3, bicarb 20, BUN 28, creatinine 4.34, glucose 111, and calcium 8.1, but was otherwise normal. Magnesium was normal at 2.0. Phosphorus normal at 3.1. Lactate was normal, but procalcitonin elevated at 0.80. Urinalysis with trace protein, 1+ blood, positive nitrites, 3+ leukocyte esterase, greater than 50 white blood cells, 3-5 epithelials, and 4+ bacteria consistent with a UTI. Urine culture is pending. Blood cultures are pending. The patient was unable to give a stool sample while in the ER. CT scan of the abdomen and pelvis without contrast showed a possible ileus or possible nonspecific enteritis, but no other acute abnormalities. I had a meaningful discussion about this patient with Dr. Wang who agrees with my assessment and the treatment plan. Due to the patient's acute kidney injury, hyponatremia, UTI, and hypotension, the patient will require admission for further evaluation and treatment. I spoke with the on-call hospitalist who agreed to admit the patient for further evaluation and treatment. Please refer to their dictation for further details. The patient's care was transferred in stable condition. DIAGNOSIS: Acute kidney injury Dehydration UTI Hyponatremia Hypotension Past Med/Surg History Problem List (Updated 08/21/25 @ 18:35 by Wen Norman PA-C) Hyponatremia (Acute) Hypotension (Acute) Acute UTI (Acute) Dehydration (Acute) Campylobacter diarrhea Diarrhea (Acute) ROMY (acute kidney injury) (Acute) Coronary artery calcification (Chronic) Tobacco abuse (Chronic) Osteoporosis (Chronic) Treated with Prolia at [facility] Hyponatremia (Chronic) Hypertension (Chronic) Anxiety (Chronic) COPD (chronic obstructive pulmonary disease) (Chronic) Hyperlipidemia (Chronic) Medical History Alcohol abuse Folic acid deficiency Vitamin B12 deficiency Vitamin D deficiency Surgical History History of surgery on wrist Family History Mother Family history of cardiac disorder Family history of myocardial infarction Denies family history of Ovarian cancer Prostate cancer Breast cancer Colorectal cancer Social History Smoking Status: Current every day smoker Tobacco Type: Cigarettes Age Started Using Tobacco: 20; packs per day: 1; Cigarettes Per Day: 1 ppd; Second Hand Exposure: No; Do You Dip or Chew Tobacco: No; Tobacco Cessation Education Requested by Patient: No Hx Alcohol Use: Yes Alcohol type: beer Hx Substance Use: No Preferred Language: Japanese Communication Ability: Effective Visual Impairment: No Limitations Hearing Ability: Normal Filament Maker Required: No Beliefs That Will Affect Care: None marital status: Single Current Living Situation: Spouse Current Living Situation Comment: lives with fiance current occupational status: employed 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 How many Children do You have: 3 Other Information That Helps Us Care for You: No Feels Safe at Home: Yes Safety Concerns: Feels Safe At This Time Childhood Exposure to Second-Hand Smoke: Yes Diet: regular caffeine: Yes (3 coffee cups daily) Dental Care, Regularly: Yes Physical Activity Frequency: Does not Exercise Seatbelt Use: always Sunscreen Use: Yes Do you think of yourself as: straight/heterosexual Gender Identity: Female Assistive Devices: Denture - Upper, Denture - Lower and Glasses Allergies Allergies Allergy/AdvReac Type Severity Reaction Status Date / Time Iodinated Contrast Media Allergy Severe swelling, Verified 07/21/25 10:02 hives morphine AdvReac Vomiting Verified 07/21/25 10:02 Home Meds Home Medications Medication Instructions Recorded Confirmed cyanocobalamin (vitamin B-12) 1,000 mcg PO QAM #30 tabs 07/15/19 08/21/25 1,000 mcg tablet aspirin 81 mg tablet,delayed 81 mg PO QAM 02/12/21 08/21/25 release (Enteric Coated Aspirin) Previous Rx's Medication Instructions Recorded denosumab 60 mg/mL subcutaneous 60 mg subcut ONCE #1 mL 06/24/24 syringe (Prolia) albuterol sulfate 90 mcg/actuation 1 inh inhalation QID PRN shortness 06/29/24 aerosol inhaler of breath or wheezing #6.7 grams mirtazapine 15 mg tablet 15 mg PO QPM #90 tabs 12/22/24 sodium chloride 1,000 mg soluble 1,000 mg PO BID #180 tabs 12/24/24 tablet losartan 100 mg tablet 100 mg PO DAILY #90 tabs 12/31/24 gabapentin 100 mg capsule 100 mg PO TID #270 caps 01/18/25 omeprazole 20 mg capsule,delayed 20 mg PO QAM #90 caps 02/02/25 release cyclobenzaprine 10 mg tablet 10 mg PO BID PRN muscle spasm #60 03/26/25 tabs folic acid 1 mg tablet See Rx Instructions .Route 03/26/25 .COMPLEX #90 tabs rosuvastatin 10 mg tablet 10 mg PO DAILY #90 tabs 04/09/25 Results & Data (ED) Vital Signs Vital Signs - 24 hr 08/20/25 21:42 08/20/25 21:48 08/20/25 22:16 Pulse Rate 73 Pulse Rate [Apical] 74 75 Respiratory Rate 20 20 Respiratory Effort / Characteristics Non-Labored Spontaneous Non-Labored Spontaneous Respiratory Depth Normal Normal Respiratory Pattern Regular Regular Blood Pressure [Right Arm] 106/61 99/67 L Blood Pressure Mean [Right Arm] 76 77 Pulse Oximetry 98 94 Oxygen Delivery Method Room Air Room Air 08/21/25 00:00 Pulse Rate Pulse Rate [Apical] Respiratory Rate Respiratory Effort / Characteristics Non-Labored Respiratory Depth Normal Respiratory Pattern Blood Pressure [Right Arm] Blood Pressure Mean [Right Arm] Pulse Oximetry Oxygen Delivery Method Laboratory Data 08/20/25 20:08 08/21/25 08:26 Lab Results 08/20/25 08/20/25 08/20/25 Range/Units 20:08 21:41 23:07 WBC 10.05 (4.8-10.8) K/ul RBC 4.07 L (4.20-5.40) M/uL Hgb 11.9 L (12.0-16.0) g/dl Hct 35.8 L (37.0-47.0) % MCV 88.0 (80.0-100.0) fL MCH 29.2 (25.0-34.0) pg MCHC 33.2 (32.0-36.0) g/dL RDW Std Deviation 41.8 (36.4-46.3) fL RDW Coeff of Travis 13.1 (11.5-14.5) % Plt Count 309 (130-400) K/uL MPV 9.3 L (9.4-12.4) fL Immature Gran % (Auto) 0.5 % Neut % (Auto) 64.9 % Lymph % (Auto) 23.2 % Guthrie % (Auto) 9.2 % Eos % (Auto) 1.8 % Baso % (Auto) 0.4 % Neut # (Auto) 6.53 H (1.40-6.50) K/uL Lymph # (Auto) 2.33 (1.20-3.40) K/uL Guthrie # (Auto) 0.92 H (0.11-0.59) K/uL Eos # (Auto) 0.18 (0.00-0.50) K/uL Baso # (Auto) 0.04 (0.00-0.20) K/uL Immature Gran # (Auto) 0.05 (0.01-0.20) K/uL Sodium 128 L (136-145) mmol/L Potassium 3.3 L (3.5-5.1) mmol/L Chloride 98 (98-107) mmol/L Carbon Dioxide 20 L (21-32) mmol/L Anion Gap 10 (3-11) BUN 28 H (6-23) mg/dl Creatinine 4.34 H D (0.6-1.2) mg/dl Est Cr Clr Drug Dosing 11.2 ml/min eGFR 10.61 BUN/Creatinine Ratio 6.5 L (10-20) Glucose 111 H (70-99(Fasting)) mg/dl Lactate 1.4 (0.4-2.0) mmol/L Calcium 8.1 L (8.6-10.3) mg/dl Phosphorus 3.1 (2.5-4.9) mg/dl Magnesium 2.0 (1.7-2.4) mg/dl Total Bilirubin 0.4 (0.2-1.0) mg/dl AST 19 (13-39) U/L ALT 11 (7-52) U/L Alkaline Phosphatase 75 (34-104) U/L Total Protein 6.9 (6.0-8.3) gm/dl Albumin 3.7 (3.4-5.0) gm/dl Globulin 3.2 (2.5-4.0) gm/dl Albumin/Globulin Ratio 1.2 (0.9-2) Procalcitonin 0.80 H (0-0.5) ng/ml Urine Color Yellow Urine Appearance Cloudy A (Clear) Urine pH 5.5 (4.5-7.5) Ur Specific [place] 1.006 (1.000-1.030) Urine Protein Trace H (Negative) Urine Glucose (UA) Negative (Negative) Urine Ketones Negative (Negative) Urine Blood 1+ H (Negative) Urine Nitrite Positive A (Negative) Urine Bilirubin Negative (Negative) Urine Urobilinogen Negative (Negative) Ur Leukocyte Esterase 3+ H (Negative) Urine WBC (Auto) >50 H (0-5) /hpf Urine RBC (Auto) 0-2 (0-2) /hpf U Hyaline Cast (Auto) 0-2 (0-2) /lpf U Epithel Cells (Auto) 3-5 H (0-2) /hpf Urine Bacteria (Auto) 4+ H (None Seen) Urine Comment Stl C. cayetanensis PCR (NotDetected) Stool Rotavirus A PCR (NotDetected) Stl Adenov F 40/41 PCR (NotDetected) Stool Astrovirus (PCR) (NotDetected) Stool Campylobacter PCR (NotDetected) Stl C. diff Tox B Gene (Neg) Stl C. diff 027-NAP1-BI Stool Cryptosporidium PCR (NotDetected) Stl E.coli Shiga Tox PCR (NotDetected) Stl Enterotoxigenic E PCR (NotDetected) Stool EPEC (PCR) (NotDetected) Stool EAEC (PCR) (NotDetected) Stl E. histolytica PCR (NotDetected) Stool Giardia Lamblia PCR (NotDetected) Stool Salmonella PCR (NotDetected) Stool Sapovirus (PCR) (NotDetected) Stl P. shigelloides PCR (NotDetected) Stl Shigella/EIEC PCR (NotDetected) St Y.enterocolitica PCR (NotDetected) Stool Vibrio (PCR) (NotDetected) Stl Vibrio cholerae PCR (NotDetected) Stl Norovirus GI/GII PCR (NotDetected) 08/21/25 Range/Units 00:40 WBC (4.8-10.8) K/ul RBC (4.20-5.40) M/uL Hgb (12.0-16.0) g/dl Hct (37.0-47.0) % MCV (80.0-100.0) fL MCH (25.0-34.0) pg MCHC (32.0-36.0) g/dL RDW Std Deviation (36.4-46.3) fL RDW Coeff of Travis (11.5-14.5) % Plt Count (130-400) K/uL MPV (9.4-12.4) fL Immature Gran % (Auto) % Neut % (Auto) % Lymph % (Auto) % Guthrie % (Auto) % Eos % (Auto) % Baso % (Auto) % Neut # (Auto) (1.40-6.50) K/uL Lymph # (Auto) (1.20-3.40) K/uL [place]rie # (Auto) (0.11-0.59) K/uL Eos # (Auto) (0.00-0.50) K/uL Baso # (Auto) (0.00-0.20) K/uL Immature Gran # (Auto) (0.01-0.20) K/uL Sodium (136-145) mmol/L Potassium (3.5-5.1) mmol/L Chloride (98-107) mmol/L Carbon Dioxide (21-32) mmol/L Anion Gap (3-11) BUN (6-23) mg/dl Creatinine (0.6-1.2) mg/dl Est Cr Clr Drug Dosing ml/min eGFR BUN/Creatinine Ratio (10-20) Glucose (70-99(Fasting)) mg/dl Lactate (0.4-2.0) mmol/L Calcium (8.6-10.3) mg/dl Phosphorus (2.5-4.9) mg/dl Magnesium (1.7-2.4) mg/dl Total Bilirubin (0.2-1.0) mg/dl AST (13-39) U/L ALT (7-52) U/L Alkaline Phosphatase (34-104) U/L Total Protein (6.0-8.3) gm/dl Albumin (3.4-5.0) gm/dl Globulin (2.5-4.0) gm/dl Albumin/Globulin Ratio (0.9-2) Procalcitonin (0-0.5) ng/ml Urine Color Urine Appearance (Clear) Urine pH (4.5-7.5) Ur Specific [place] (1.000-1.030) Urine Protein (Negative) Urine Glucose (UA) (Negative) Urine Ketones (Negative) Urine Blood (Negative) Urine Nitrite (Negative) Urine Bilirubin (Negative) Urine Urobilinogen (Negative) Ur Leukocyte Esterase (Negative) Urine WBC (Auto) (0-5) /hpf Urine RBC (Auto) (0-2) /hpf U Hyaline Cast (Auto) (0-2) /lpf U Epithel Cells (Auto) (0-2) /hpf Urine Bacteria (Auto) (None Seen) Urine Comment Stl C. cayetanensis PCR Not Detected (NotDetected) Stool Rotavirus A PCR Not Detected (NotDetected) Stl Adenov F 40/41 PCR Not Detected (NotDetected) Stool Astrovirus (PCR) Not Detected (NotDetected) Stool Campylobacter PCR DETECTED A* (NotDetected) Stl C. diff Tox B Gene Negative Cdiff Gene (Neg) Stl C. diff 027-NAP1-BI NEGATIVE Stool Cryptosporidium PCR Not Detected (NotDetected) Stl E.coli Shiga Tox PCR Not Detected (NotDetected) Stl Enterotoxigenic E PCR Not Detected (NotDetected) Stool EPEC (PCR) Not Detected (NotDetected) Stool EAEC (PCR) Not Detected (NotDetected) Stl E. histolytica PCR Not Detected (NotDetected) Stool Giardia Lamblia PCR Not Detected (NotDetected) Stool Salmonella PCR Not Detected (NotDetected) Stool Sapovirus (PCR) Not Detected (NotDetected) Stl P. shigelloides PCR Not Detected (NotDetected) Stl Shigella/EIEC PCR Not Detected (NotDetected) St Y.enterocolitica PCR Not Detected (NotDetected) Stool Vibrio (PCR) Not Detected (NotDetected) Stl Vibrio cholerae PCR Not Detected (NotDetected) Stl Norovirus GI/GII PCR Not Detected (NotDetected) Administered Medications Aspirin (Aspirin 81 Mg Ectab) 81 mg PO QAM [facility] Stop: 09/20/25 08:59 Last Admin: 08/21/25 09:05 Dose: 81 mg Documented By: TLJavan Gabapentin (Gabapentin 100 Mg Cap) 100 mg PO TID LUKAS Stop: 09/20/25 08:59 Last Admin: 08/21/25 14:52 Dose: 100 mg Documented By: Admin: 08/21/25 09:05 Dose: 100 mg Documented By: ASHLEY Heparin Sodium (Porcine) (Heparin Sod 5,000 Unit/0.5 Ml Vial) 5,000 units SQ Q12 LUKAS Stop: 09/20/25 08:59 Last Admin: 08/21/25 09:05 Dose: 5,000 units Documented By: ASHLEY Ceftriaxone Sodium (Rocephin) 1,000 mg in 50 mls @ 100 mls/hr IV Q24H LUKAS Stop: 08/22/25 09:29 Last Infusion: 08/21/25 09:35 Dose: Infused Documented By: Admin: 08/21/25 09:05 Dose: 100 mls/hr Documented By: ASHLEY Pantoprazole Sodium (Pantoprazole 40 Mg Tab) 40 mg PO QAM LUKAS Stop: 09/20/25 08:59 Last Admin: 08/21/25 09:05 Dose: 40 mg Documented By: ASHLEY Rosuvastatin Calcium (Rosuvastatin Calcium 10 Mg Tab) 10 mg PO DAILY LUKAS Stop: 09/20/25 08:59 Last Admin: 08/21/25 09:05 Dose: 10 mg Documented By: ASHLEY Sodium Chloride (Sodium Chloride 1 Gm Tablet) 1 gm PO BID LUKAS Stop: 09/20/25 08:59 Last Admin: 08/21/25 09:05 Dose: 1 gm Documented By: ASHLEY Umeclidinium/Vilanterol (Umeclidinium/Vilanterol 62.5/25mcg 7 Puffs/Inhaler) 1 puffs INH DAILY LUKAS Stop: 09/20/25 08:59 Last Admin: 08/21/25 09:05 Dose: 1 puffs Documented By: ASHLEY Discontinued Medications Sodium Chloride (Nss) 1,000 mls @ 125 mls/hr IV .Q8H LUKAS Stop: 08/23/25 20:44 Last Infusion: 08/21/25 04:27 Dose: Infused Documented By: Infusion: 08/21/25 01:08 Dose: 0 mls/hr Documented By: Admin: 08/20/25 21:55 Dose: 125 mls/hr Documented By: MALLORY Ceftriaxone Sodium (Rocephin) 2,000 mg in 50 mls @ 100 mls/hr IV NOW STA Stop: 08/20/25 23:00 Last Infusion: 08/21/25 00:22 Dose: Infused Documented By: Admin: 08/20/25 23:31 Dose: 100 mls/hr Documented By: LILA Sodium Chloride (Nss) 250 mls @ 999 mls/hr IV .Q16M ONE Stop: 08/20/25 22:46 Last Infusion: 08/21/25 00:22 Dose: Infused Documented By: Admin: 08/20/25 23:31 Dose: 999 mls/hr Documented By: LILA Sodium Chloride (Nss) 1,000 mls @ 150 mls/hr IV .Q6H40M LUKAS Stop: 08/21/25 14:19 Last Infusion: 08/21/25 15:46 Dose: Infused Documented By: Admin: 08/21/25 09:05 Dose: 150 mls/hr Documented By: Infusion: 08/21/25 07:49 Dose: Infused Documented By: Admin: 08/21/25 01:08 Dose: 150 mls/hr Documented By: LILA Potassium Chloride (Potassium Chloride Crtab 20 Meq Tabcr) 40 meq PO NOW STA Stop: 08/21/25 00:58 Last Admin: 08/21/25 01:49 Dose: 40 meq Documented By: LILA Discharge Plan Visit Data Chief Complaint: Referred by Doctor Stated Complaint: IV ANTIBIOTICS, KIDNEY ISSUES, REF BY DOC ED Provider: Kane Wang ED Midlevel Provider: Wen Norman Discharge Problem: ROMY (acute kidney injury), Dehydration, Acute UTI, Hypotension, Hyponatremia Patient Disposition: Admitted As Inpatient Condition: Fair Discharge Instructions Interventions: ED Discharge Assessment Last Done: 08/21/25 02:00 Discharge Problem: Hypotension Qualifiers: Hypotension type: unspecified hypotension type Qualified Code(s): I95.9 - Hypotension, unspecified
[2025-08-20 20:40] LABS: Alanine Aminotransferase 11.0 U/L (7-52); Albumin Globulin Ratio 1.2 (0.9-2); Albumin Level 3.7 gm/dl (3.4-5.0); Alkaline Phosphatase 75.0 U/L (34-104); Anion Gap 10.0 (3-11); Bilirubin,Total 0.4 mg/dl (0.2-1.0); Blood Urea Nitrogen 28.0 mg/dl (6-23); Calcium 8.1 mg/dl (8.6-10.3); Carbon Dioxide 20.0 mmol/L (21-32); Chloride 98.0 mmol/L (98-107); Creatinine Clr Calc Pharmacy 11.2 ml/min; Globulin 3.2 gm/dl (2.5-4.0); Glucose 111.0 mg/dl (70-99(Fasting)); Potassium 3.3 mmol/L (3.5-5.1); Sodium 128.0 mmol/L (136-145); Total Protein 6.9 gm/dl (6.0-8.3)
[2025-08-20 20:53] LABS: Magnesium 2.0 mg/dl (1.7-2.4)
[2025-08-20] MEDS: SODIUM CHLORIDE 0.9% 1,000 ML IV SCH (21:55)
[2025-08-20 22:00] LABS: Appearance Urine Cloudy (Clear); Bacteria Urine Automated 4+ (None Seen); Cast Urine Automated 0-2 /lpf (0-2); Glucose Urine UA Negative (Negative); RBC Urine Automated 0-2 /hpf (0-2); WBC Urine Automated >50 /hpf (0-5)
[2025-08-20] MEDS: cefTRIAXone SODIUM 2,000 MG/50 ML BAG IV STA (23:31)
[2025-08-20] MEDS: SODIUM CHLORIDE 0.9% 250 ML IV ONE (23:31)
--- NOTE | 2025-08-20 23:49 | CT Scan Report ---
Exam(s): CT ABDOMEN + PELVIS Without Contrast EXAM: CT Abdomen and Pelvis Without Intravenous Contrast CLINICAL HISTORY: Reason for exam: N/V/D, ROMY. TECHNIQUE: Axial computed tomography images of the abdomen and pelvis without intravenous contrast. Automated exposure control was utilized for the study. A dose lowering technique was utilized adhering to the principles of ALARA. COMPARISON: No relevant prior studies available. FINDINGS: Exam is limited due to lack of contrast. Lung bases: No consolidation. The heart is not enlarged but contains coronary artery calcifications ABDOMEN: Liver: The liver is enlarged. Gallbladder and bile ducts: No calcified stones. No ductal dilation. Pancreas: No ductal dilation. Spleen: No splenomegaly. Adrenals: No mass. Kidneys and ureters: No obstructing stones. No hydronephrosis. Stomach and bowel: There are some retained foodstuffs within the stomach. There is air, fluid and stool noted in the colon. There are diverticula present on the colon. No significant inflammatory changes are seen. There are some mildly distended loops of small bowel containing air and fluid.. PELVIS: Appendix: Unremarkable CT scan appearance noted the appendix. Bladder: No calculi are noted within the bladder.. Reproductive: Unremarkable as visualized. ABDOMEN and PELVIS: Intraperitoneal space: No free air. No significant fluid collection. Bones/joints: There are degenerative changes in the spine.. Soft tissues: Unremarkable. Vasculature: There are extensive atherosclerotic changes. No abdominal aortic aneurysm. Lymph nodes: No enlarged lymph nodes. IMPRESSION: Diverticulosis. The overall bowel gas pattern may represent an ileus. Cannot exclude a nonspecific enteritis. See discussion above Electronically signed by: Venu Murphy MD 08/20/25 23:48 PM
[2025-08-21] MEDS ORDERED: POLYETHYLENE (MIRALAX) 17 GM PACK PO PRN (00:46)
[2025-08-21] MEDS ORDERED: MELATONIN 3 MG TAB PO PRN (00:46)
[2025-08-21] MEDS ORDERED: MAGNESIUM HYDROXIDE SUSP 30 ML UDC PO PRN (00:46)
[2025-08-21] MEDS ORDERED: ALUMINUM/MAGNESIUM SUSP 30 ML UDC PO PRN (00:46)
[2025-08-21] MEDS ORDERED: ONDANSETRON INJ 2 MG/ML 2 ML VIAL IV PRN (00:46)
[2025-08-21] MEDS ORDERED: ACETAMINOPHEN 325 MG TAB PO PRN (00:46)
--- NOTE | 2025-08-21 00:55 | History & Physical Report ---
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 #Diarrhea Resolving Parenteral hydration NSS @ 150cc/hr x 2 L +Campylobacter on PCR Defer antibiotics given improving course #ROMY Baseline ~1 Suspect pre-renal in setting of severe dehydration and decreased oral intake due to above Continue parenteral hydration, promote good oral intake Follow BMP Hold losartan Avoid nephrotoxic agents #Hyponatremia Pt with history of SIADH Suspect exacerbated due to decreased solute intake Continue home salt tabs Total NSS infused will have been 3L Follow BMP #HTN Hypotensive on admission Losartan held due to ROMY #HLD Continue Crestor #COPD Does not appear in acute exacerbation No baseline O2 use Continue Anoro and PRN albuterol FENGI: regular diet, NSS as above Code status: full code DVT prophylaxis: heparin in setting of ROMY Disposition: med/tele History of Present Illness Primary Care Provider: Estefania Gtz MD 65 yo female PMHx COPD, 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 3 days ago she had tuna noodle casserole for dinner. Subsequently developed nausea and vomiting. This progressed to diarrhea, multiple episodes per day. She has not had any thing more than a few bites of hoagie and very little hydration over the course of her illness. Today she called her track repair laborer who ordered labs and found her to have significant ROMY and referred her to the ER. At the time of admission the patient does not have significant symptoms. Denies CP, SOB, N/V/D at this time. Denies any recent travel, consumption of well water, sick exposures. ED Course: Labs reveal hyponatremia, severe ROMY, elevated procal, UA with 1+ blood, 3+ leuk esterase, 4+ bacteria CTAP: diverticulosis, possible ileus, possible enteritis Given 1L NSS, ceftriaxone Allergies Allergy/AdvReac Type Severity Reaction Status Date / Time Iodinated Contrast Media Allergy Severe swelling, Verified 07/21/25 10:02 hives morphine AdvReac Vomiting Verified 07/21/25 10:02 Home Medications Medication Instructions Recorded Confirmed Type cyanocobalamin (vitamin B-12) 1,000 mcg PO QAM #30 tabs 07/15/19 08/21/25 History 1,000 mcg tablet aspirin 81 mg tablet,delayed 81 mg PO QAM 02/12/21 08/21/25 History release (Enteric Coated Aspirin) denosumab 60 mg/mL subcutaneous 60 mg subcut ONCE #1 mL 06/24/24 08/21/25 Rx syringe (Prolia) albuterol sulfate 90 mcg/actuation 1 inh inhalation QID PRN shortness 06/29/24 08/21/25 Rx aerosol inhaler of breath or wheezing #6.7 grams mirtazapine 15 mg tablet 15 mg PO QPM #90 tabs 12/22/24 08/21/25 Rx sodium chloride 1,000 mg soluble 1,000 mg PO BID #180 tabs 12/24/24 08/21/25 Rx tablet losartan 100 mg tablet 100 mg PO DAILY #90 tabs 12/31/24 08/21/25 Rx gabapentin 100 mg capsule 100 mg PO TID #270 caps 01/18/25 08/21/25 Rx omeprazole 20 mg capsule,delayed 20 mg PO QAM #90 caps 02/02/25 08/21/25 Rx release cyclobenzaprine 10 mg tablet 10 mg PO BID PRN muscle spasm #60 03/26/25 08/21/25 Rx tabs folic acid 1 mg tablet See Rx Instructions .Route 03/26/25 08/21/25 Rx .COMPLEX #90 tabs rosuvastatin 10 mg tablet 10 mg PO DAILY #90 tabs 04/09/25 08/21/25 Rx Past Med/Surg History Problem List (Updated 08/21/25 @ 04:43 by Naun Bowman DO) Campylobacter diarrhea Diarrhea (Acute) ROMY (acute kidney injury) Coronary artery calcification (Chronic) Tobacco abuse (Chronic) Osteoporosis (Chronic) Treated with Prolia at [facility] rheumatology Hyponatremia (Chronic) Hypertension (Chronic) Anxiety (Chronic) COPD (chronic obstructive pulmonary disease) (Chronic) Hyperlipidemia (Chronic) Medical History Alcohol abuse Folic acid deficiency Vitamin B12 deficiency Vitamin D deficiency Surgical History History of surgery on wrist Family History Mother Family history of cardiac disorder Family history of myocardial infarction Denies family history of Ovarian cancer Prostate cancer Breast cancer Colorectal cancer Social History Smoking Status: Current every day smoker Tobacco Type: Cigarettes Age Started Using Tobacco: 20; packs per day: 1; Cigarettes Per Day: 1 ppd; Second Hand Exposure: No; Do You Dip or Chew Tobacco: No; Tobacco Cessation Education Requested by Patient: No Hx Alcohol Use: Yes Alcohol type: beer Hx Substance Use: No Preferred Language: Azeri Communication Ability: Effective Visual Impairment: No Limitations Hearing Ability: Normal Access Assoc Required: No Beliefs That Will Affect Care: None marital status: Single Current Living Situation: Spouse Current Living Situation Comment: lives with fiance current occupational status: employed 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 How many Children do You have: 3 Other Information That Helps Us Care for You: No Feels Safe at Home: Yes Safety Concerns: Feels Safe At This Time Childhood Exposure to Second-Hand Smoke: Yes Diet: regular caffeine: Yes (3 coffee cups daily) Dental Care, Regularly: Yes Physical Activity Frequency: Does not Exercise Seatbelt Use: always Sunscreen Use: Yes Do you think of yourself as: straight/heterosexual Gender Identity: Female Assistive Devices: Denture - Upper, Denture - Lower and Glasses Review of Systems Review of Systems: reviewed, per HPI Physical Exam Physical Exam: Constitutional: well-appearing, no acute distress HEENT: NCAT, no conjunctival injection CV: regular rhythm, no murmur appreciated, extremities well-perfused, no LE edema Resp: decreased air movement, CTABL, no wheezes/rales/rhonchi appreciated, no increased work of breathing GI: soft, nondistended, nontender, BS normoactive MSK: no gross deformities appreciated Skin: warm, dry, no rash appreciated Neuro: alert, oriented, no focal neurologic deficit appreciated Results & Data Results & Data Vital Signs (Past 12 Hours) Vital Signs Temp Pulse Pulse Resp BP BP Pulse Ox 08/20/25 22:16 75 20 99/67 L 94 08/20/25 21:48 74 20 106/61 98 08/20/25 21:42 73 08/20/25 17:44 35.9 C L 81 16 113/66 100 O2 Del Method 08/20/25 22:16 Room Air 08/20/25 21:48 Room Air 08/20/25 21:42 08/20/25 17:44 Room Air Code Status & VTE Plan VTE Prophylaxis Plan VTE Prophylaxis will be ordered: Yes Supervising Physician Co-Signing Physician Notes Attending addendum: I have physically seen this patient, have supervised the medical residents activities, and agree with the H&P unless as otherwise noted. Assessment and Plan: The patient is a 65-year-old female with a past medical history including COPD, SIADH secondary to chronic heavy alcohol use, hyperlipidemia, hypertension, tobacco use, and coronary artery calcifications. She presents to the emergency department for nausea, vomiting and diarrhea x 3 days. Campylobacter diarrhea- As noted on stool PCR Patient's symptoms are improving at this point without treatment Main treatment will be rehydration with IV fluids, and advance diet as tolerated Acute kidney injury- Creatinine 4.34, with base range 0.8-0.9 Secondary to GI losses IV fluids as noted above Repeat laboratories in the a.m. Hyponatremia/history of SIADH- Continue sodium chloride 1 g p.o. twice daily Normal saline as noted Repeat laboratories in the a.m. Hypertension- Relatively hypotensive on admission Losartan held due to blood pressure and ROMY Repeat laboratories in the a.m. Hyperlipidemia- Continue rosuvastatin GERD- Continue omeprazole/pantoprazole COPD- At baseline Continue usual inhalers Remaining orders and notations as noted Resident Activity Tracking Resident Involvement: Resident Care Provided Care Provided: Adult Hospital Medicine
[2025-08-21] MEDS: SODIUM CHLORIDE 0.9% 1,000 ML IV SCH (01:08)
[2025-08-21] MEDS: POTASSIUM CHLORIDE CRTAB 20 MEQ TABCR PO STA (01:49)
[2025-08-21 02:03] LABS: Cdiff Toxin B Gene (2yr or >) Negative Cdiff Gene (Neg)
[2025-08-21] MEDS ORDERED: ALBUTEROL HFA 8 GM INHALER INH PRN (02:04)
[2025-08-21 02:37] LABS: Adenovirus F 40/41 PCR Not Detected (NotDetected); Enteroaggregative E.coli(EAEC) Not Detected (NotDetected); Shiga-like Toxin E.coli (STEC) Not Detected (NotDetected); Vibrio species PCR Not Detected (NotDetected)
[2025-08-21 02:43] LABS: Campylobacter PCR DETECTED (NotDetected)
[2025-08-21] MEDS ORDERED: LOSARTAN POTASSIUM 50 MG TAB PO SCH (09:00)
[2025-08-21] MEDS: UMECLIDINIUM/VILANTEROL 62.5/25MCG 7 PUFFS/INHALER INH SCH (09:05)
[2025-08-21] MEDS: GABAPENTIN 100 MG CAP PO SCH (09:05)
[2025-08-21] MEDS: ROSUVASTATIN CALCIUM 10 MG TAB PO SCH (09:05)
[2025-08-21] MEDS: SODIUM CHLORIDE 1 GM TABLET PO SCH (09:05)
[2025-08-21] MEDS: HEPARIN SOD 5,000 UNIT/0.5 ML VIAL SQ SCH (09:05)
[2025-08-21] MEDS: ASPIRIN 81 MG ECTAB PO SCH (09:05)
[2025-08-21] MEDS: cefTRIAXone SODIUM 1,000 MG/50 ML BAG IV SCH (09:05)
[2025-08-21 09:09] LABS: Anion Gap 7.0 (3-11); Blood Urea Nitrogen 29.0 mg/dl (6-23); Calcium 6.9 mg/dl (8.6-10.3); Carbon Dioxide 17.0 mmol/L (21-32); Chloride 108.0 mmol/L (98-107); Creatinine Clr Calc Pharmacy 12.6 ml/min; Glucose 106.0 mg/dl (70-99(Fasting)); Potassium 3.8 mmol/L (3.5-5.1); Sodium 132.0 mmol/L (136-145)
--- NOTE | 2025-08-21 09:41 | Nephrology Consultation ---
Date of Consultation August 21, 2025 Assessment & Plan (1) ROMY (acute kidney injury): * ROMY due to dehydration in the setting of ARB therapy * Unfortunately patient is unable to collect urine for measurement due to diarrhea * Creatinine is now trending downward following IV hydration * Patient remains clinically volume contracted and hypotensive. Recommend continue gentle hydration with 0.9 NS * Electrolyte balance is acceptable. No acute indication for CONTRACTS REPRESENTATIVE therapy this morning * BMP in a.m. (2) Hyponatremia: * Patient did not take sodium chloride tablets x 2 days due to GI illness * Serum sodium is trending up following hydration with 0.9 NS * Resume NaCl 1 g p.o. twice daily (3) Hypertension: * Patient has presented with dehydration and hypotension related to GI illness * BP remains low. Continue to hold losartan (4) Campylobacter diarrhea: * Source of infection is unclear. Both patient and her dog have been ill with diarrhea * Patient denies recent exposure to undercooked food. She drinks only bottled water. * Patient is symptomatically improved this morning. Continue supportive care. Plan 80-minute visit: Reviewed medical record, interviewed and examined patient, discussed POC with patient, ordered a.m. labs, updated medical record History of Present Illness Reason for Consultation: ROMY, hyponatremia Attending Physician: Chava Forbes MD, PhD History of Present Illness Mrs. Avitia is a 65-year-old white female who is seen at the request of the [facility] hospitalist service for evaluation of ROMY and hyponatremia. Information for the HPI is obtained from direct patient interview and review of the EMR. HPI summarized as follows: Mrs. Avitia has preserved kidney function. Her baseline serum creatinine has been 0.96. Her medical history is significant for prior alcohol abuse, poor solute intake and prior hospitalization for recurrent severe hyponatremia. She was diagnosed with SIADH and has been cared for by Dr. Garrett. Serum sodium has been maintained in the 135- 145 mmol/L range by maintaining an 1800 cc/day oral fluid restriction and taking sodium chloride 1 g p.o. twice daily. Mrs. Avitia's medical history is also significant for osteoporosis, OA, cervical radiculopathy, chronic NSAID use (meloxicam), HTN (losartan), COPD, ongoing tobacco use. Mrs. Avitia was admitted to [facility] last evening due to recurrent nausea, vomiting, diarrhea and dehydration. She reports that both she and her dog have been ill. She has tested positive for Campylobacter. Hydration with 0.9 NS has been provided. Serum sodium has improved from 128 to 132 mmol/L. Serum creatinine is now trending down from 4.3 to 3.95 mg/dL. Allergies Allergy/AdvReac Type Severity Reaction Status Date / Time Iodinated Contrast Media Allergy Severe swelling, Verified 07/21/25 10:02 hives morphine AdvReac Vomiting Verified 07/21/25 10:02 Home Medications Medication Instructions Recorded Confirmed Type cyanocobalamin (vitamin B-12) 1,000 mcg PO QAM #30 tabs 07/15/19 08/21/25 History 1,000 mcg tablet aspirin 81 mg tablet,delayed 81 mg PO QAM 02/12/21 08/21/25 History release (Enteric Coated Aspirin) denosumab 60 mg/mL subcutaneous 60 mg subcut ONCE #1 mL 06/24/24 08/21/25 Rx syringe (Prolia) albuterol sulfate 90 mcg/actuation 1 inh inhalation QID PRN shortness 06/29/24 08/21/25 Rx aerosol inhaler of breath or wheezing #6.7 grams mirtazapine 15 mg tablet 15 mg PO QPM #90 tabs 12/22/24 08/21/25 Rx sodium chloride 1,000 mg soluble 1,000 mg PO BID #180 tabs 12/24/24 08/21/25 Rx tablet losartan 100 mg tablet 100 mg PO DAILY #90 tabs 12/31/24 08/21/25 Rx gabapentin 100 mg capsule 100 mg PO TID #270 caps 01/18/25 08/21/25 Rx omeprazole 20 mg capsule,delayed 20 mg PO QAM #90 caps 02/02/25 08/21/25 Rx release cyclobenzaprine 10 mg tablet 10 mg PO BID PRN muscle spasm #60 03/26/25 08/21/25 Rx tabs folic acid 1 mg tablet See Rx Instructions .Route 03/26/25 08/21/25 Rx .COMPLEX #90 tabs rosuvastatin 10 mg tablet 10 mg PO DAILY #90 tabs 04/09/25 08/21/25 Rx Patient History Medical History Alcohol abuse Folic acid deficiency Vitamin B12 deficiency Vitamin D deficiency Surgical History History of surgery on wrist Family History Mother Family history of cardiac disorder Family history of myocardial infarction Denies family history of Ovarian cancer Prostate cancer Breast cancer Colorectal cancer Social History Smoking Status: Current every day smoker Tobacco Type: Cigarettes Age Started Using Tobacco: 20; packs per day: 1; Cigarettes Per Day: 1 ppd; Second Hand Exposure: No; Do You Dip or Chew Tobacco: No; Tobacco Cessation Education Requested by Patient: No Hx Alcohol Use: Yes Alcohol type: beer Hx Substance Use: No Preferred Language: Tunisian Communication Ability: Effective Visual Impairment: No Limitations Hearing Ability: Normal Insole Taper Required: No Beliefs That Will Affect Care: None marital status: Single Current Living Situation: Spouse Current Living Situation Comment: lives with fiance current occupational status: employed 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 How many Children do You have: 3 Other Information That Helps Us Care for You: No Feels Safe at Home: Yes Safety Concerns: Feels Safe At This Time Childhood Exposure to Second-Hand Smoke: Yes Diet: regular caffeine: Yes (3 coffee cups daily) Dental Care, Regularly: Yes Physical Activity Frequency: Does not Exercise Seatbelt Use: always Sunscreen Use: Yes Do you think of yourself as: straight/heterosexual Gender Identity: Female Assistive Devices: Denture - Upper, Denture - Lower and Glasses Review of Systems Constitutional: no fever Eyes: no problem reported Ear, Nose, Mouth, Throat: no problem reported Respiratory: no cough and no dyspnea Cardiovascular: no chest pain Gastrointestinal: + nausea, + vomiting and + diarrhea/loos e stools; no abdominal pain Genitourinary: no dysuria Integumentary: no rash Physical Exam Constitutional: not in distress Eyes: PERRL, conjunctivae normal, anicteric sclerae ENMT: external ear and nose normal, oropharynx normal Neck: trachea midline, no thyromegaly Respiratory: normal respiratory effort, lungs clear to auscultation Cardiovascular: RRR, no murmur, no edema Gastrointestinal (Abdomen): normal bowel sounds, soft, nontender, no hepatosplenomegaly Musculoskeletal: Extremities: no cyanosis and no clubbing Skin: + turgor decreased Neurologic: no focal motor deficits Results & Data Vital Signs (Past 12 Hours) Vital Signs Temp Pulse Pulse Pulse Resp BP BP 08/21/25 07:19 37.1 C 73 18 87/55 L 90/55 L 08/21/25 06:45 67 08/21/25 02:40 08/21/25 02:28 36.4 C L 82 18 118/56 L 08/21/25 02:16 86 08/21/25 01:34 89 08/20/25 22:16 75 20 99/67 L 08/20/25 21:48 74 20 106/61 08/20/25 21:42 73 Pulse Ox O2 Del Method 08/21/25 07:19 97 Room Air 08/21/25 06:45 08/21/25 02:40 Room Air 08/21/25 02:28 96 Room Air 08/21/25 02:16 08/21/25 01:34 08/20/25 22:16 94 Room Air 08/20/25 21:48 98 Room Air 08/20/25 21:42 Laboratory Results Laboratory Results WBC 10.05 K/ul (4.8-10.8) 08/20/25 20:08 RBC 4.07 M/uL (4.20-5.40) L 08/20/25 20:08 Hgb 11.9 g/dl (12.0-16.0) L 08/20/25 20:08 Hct 35.8 % (37.0-47.0) L 08/20/25 20:08 MCV 88.0 fL (80.0-100.0) 08/20/25 20:08 MCH 29.2 pg (25.0-34.0) 08/20/25 20:08 MCHC 33.2 g/dL (32.0-36.0) 08/20/25 20:08 RDW Std Deviation 41.8 fL (36.4-46.3) 08/20/25 20:08 RDW Coeff of Travis 13.1 % (11.5-14.5) 08/20/25 20:08 Plt Count 309 K/uL (130-400) 08/20/25 20:08 MPV 9.3 fL (9.4-12.4) L 08/20/25 20:08 Immature Gran % (Auto) 0.5 % 08/20/25 20:08 Neut % (Auto) 64.9 % 08/20/25 20:08 Lymph % (Auto) 23.2 % 08/20/25 20:08 Guthrie % (Auto) 9.2 % 08/20/25 20:08 Eos % (Auto) 1.8 % 08/20/25 20:08 Baso % (Auto) 0.4 % 08/20/25 20:08 Neut # (Auto) 6.53 K/uL (1.40-6.50) H 08/20/25 20:08 Lymph # (Auto) 2.33 K/uL (1.20-3.40) 08/20/25 20:08 Guthrie # (Auto) 0.92 K/uL (0.11-0.59) H 08/20/25 20:08 Eos # (Auto) 0.18 K/uL (0.00-0.50) 08/20/25 20:08 Baso # (Auto) 0.04 K/uL (0.00-0.20) 08/20/25 20:08 Immature Gran # (Auto) 0.05 K/uL (0.01-0.20) 08/20/25 20:08 Sodium 132 mmol/L (136-145) L 08/21/25 08:26 Potassium 3.8 mmol/L (3.5-5.1) 08/21/25 08:26 Chloride 108 mmol/L (98-107) H 08/21/25 08:26 Carbon Dioxide 17 mmol/L (21-32) L 08/21/25 08:26 Anion Gap 7 (3-11) 08/21/25 08:26 BUN 29 mg/dl (6-23) H 08/21/25 08:26 Creatinine 3.95 mg/dl (0.6-1.2) H D 08/21/25 08:26 Est Cr Clr Drug Dosing 12.6 ml/min 08/21/25 08:26 eGFR 11.88 08/21/25 08:26 BUN/Creatinine Ratio 7.3 (10-20) L 08/21/25 08:26 Glucose 106 mg/dl (70-99(Fasting)) H 08/21/25 08:26 Lactate 0.7 mmol/L (0.4-2.0) 08/21/25 08:26 Calcium 6.9 mg/dl (8.6-10.3) L 08/21/25 08:26 Phosphorus 3.1 mg/dl (2.5-4.9) 08/20/25 20:08 Magnesium 2.0 mg/dl (1.7-2.4) 08/20/25 20:08 Total Bilirubin 0.4 mg/dl (0.2-1.0) 08/20/25 20:08 AST 19 U/L (13-39) 08/20/25 20:08 ALT 11 U/L (7-52) 08/20/25 20:08 Alkaline Phosphatase 75 U/L (34-104) 08/20/25 20:08 Total Protein 6.9 gm/dl (6.0-8.3) 08/20/25 20:08 Albumin 3.7 gm/dl (3.4-5.0) 08/20/25 20:08 Globulin 3.2 gm/dl (2.5-4.0) 08/20/25 20:08 Albumin/Globulin Ratio 1.2 (0.9-2) 08/20/25 20:08 Procalcitonin 0.72 ng/ml (0-0.5) H 08/21/25 08:26 Urine Color Yellow 08/20/25 21:41 Urine Appearance Cloudy (Clear) A 08/20/25 21:41 Urine pH 5.5 (4.5-7.5) 08/20/25 21:41 Ur Specific [place] 1.006 (1.000-1.030) 08/20/25 21:41 Urine Protein Trace (Negative) H 08/20/25 21:41 Urine Glucose (UA) Negative (Negative) 08/20/25 21:41 Urine Ketones Negative (Negative) 08/20/25 21:41 Urine Blood 1+ (Negative) H 08/20/25 21:41 Urine Nitrite Positive (Negative) A 08/20/25 21:41 Urine Bilirubin Negative (Negative) 08/20/25 21:41 Urine Urobilinogen Negative (Negative) 08/20/25 21:41 Ur Leukocyte Esterase 3+ (Negative) H 08/20/25 21:41 Urine WBC (Auto) >50 /hpf (0-5) H 08/20/25 21:41 Urine RBC (Auto) 0-2 /hpf (0-2) 08/20/25 21:41 U Hyaline Cast (Auto) 0-2 /lpf (0-2) 08/20/25 21:41 U Epithel Cells (Auto) 3-5 /hpf (0-2) H 08/20/25 21:41 Urine Bacteria (Auto) 4+ (None Seen) H 08/20/25 21:41 Urine Comment 08/20/25 21:41 Stl C. cayetanensis PCR Not Detected (NotDetected) 08/21/25 00:40 Stool Rotavirus A PCR Not Detected (NotDetected) 08/21/25 00:40 Stl Adenov F 4041 PCR Not Detected (NotDetected) 08/21/25 00:40 Stool Astrovirus (PCR) Not Detected (NotDetected) 08/21/25 00:40 Stool Campylobacter PCR DETECTED (NotDetected) A* 08/21/25 00:40 Stl C. diff Tox B Gene Negative Cdiff Gene (Neg) 08/21/25 00:40 Stl C. diff [id number] NEGATIVE 08/21/25 00:40 Stool Cryptosporidium PCR Not Detected (NotDetected) 08/21/25 00:40 Stl E.coli Shiga Tox PCR Not Detected (NotDetected) 08/21/25 00:40 Stl Enterotoxigenic E PCR Not Detected (NotDetected) 08/21/25 00:40 Stool EPEC (PCR) Not Detected (NotDetected) 08/21/25 00:40 Stool EAEC (PCR) Not Detected (NotDetected) 08/21/25 00:40 Stl E. histolytica PCR Not Detected (NotDetected) 08/21/25 00:40 Stool Giardia Lamblia PCR Not Detected (NotDetected) 08/21/25 00:40 Stool Salmonella PCR Not Detected (NotDetected) 08/21/25 00:40 Stool Sapovirus (PCR) Not Detected (NotDetected) 08/21/25 00:40 Stl P. shigelloides PCR Not Detected (NotDetected) 08/21/25 00:40 Stl Shigella/EIEC PCR Not Detected (NotDetected) 08/21/25 00:40 St Y.enterocolitica PCR Not Detected (NotDetected) 08/21/25 00:40 Stool Vibrio (PCR) Not Detected (NotDetected) 08/21/25 00:40 Stl Vibrio cholerae PCR Not Detected (NotDetected) 08/21/25 00:40 Stl Norovirus GI/GII PCR Not Detected (NotDetected) 08/21/25 00:40 Impressions Abdomen/Pelvis CT 08/20/25 20:39 Exam(s): CT ABDOMEN + PELVIS Without Contrast EXAM: CT Abdomen and Pelvis Without Intravenous Contrast CLINICAL HISTORY: Reason for exam: N/V/D, ROMY. TECHNIQUE: Axial computed tomography images of the abdomen and pelvis without intravenous contrast. Automated exposure control was utilized for the study. A dose lowering technique was utilized adhering to the principles of ALARA. COMPARISON: No relevant prior studies available. FINDINGS: Exam is limited due to lack of contrast. Lung bases: No consolidation. The heart is not enlarged but contains coronary artery calcifications ABDOMEN: Liver: The liver is enlarged. Gallbladder and bile ducts: No calcified stones. No ductal dilation. Pancreas: No ductal dilation. Spleen: No splenomegaly. Adrenals: No mass. Kidneys and ureters: No obstructing stones. No hydronephrosis. Stomach and bowel: There are some retained foodstuffs within the stomach. There is air, fluid and stool noted in the colon. There are diverticula present on the colon. No significant inflammatory changes are seen. There are some mildly distended loops of small bowel containing air and fluid.. PELVIS: Appendix: Unremarkable CT scan appearance noted the appendix. Bladder: No calculi are noted within the bladder.. Reproductive: Unremarkable as visualized. ABDOMEN and PELVIS: Intraperitoneal space: No free air. No significant fluid collection. Bones/joints: There are degenerative changes in the spine.. Soft tissues: Unremarkable. Vasculature: There are extensive atherosclerotic changes. No abdominal aortic aneurysm. Lymph nodes: No enlarged lymph nodes. IMPRESSION: Diverticulosis. The overall bowel gas pattern may represent an ileus. Cannot exclude a nonspecific enteritis. See discussion above Electronically signed by: Venu Murphy MD 08/20/25 23:48 PM PG Care Time/CCT Total # of Minutes Spent Total Time Spent with Patient: Total time spent is greater than 50% in coordination of care (as documented) at patient's floor/unit and/or counseling patient: Coding Level of Care Code 02001 IN/OBS CONSULT LVL 5,80M Diagnoses ROMY (acute kidney injury) N17.9 Hyponatremia E87.1 Hypertension I10 Campylobacter diarrhea A04.5
[2025-08-21] MEDS: MIRTAZAPINE TAB 15 MG TAB PO SCH (20:39)
--- NOTE | 2025-08-22 07:35 | Nephrology Progress Note ---
Date of Service August 22, 2025 Assessment & Plan (1) ROMY (acute kidney injury): Plan: * ROMY due to dehydration in the setting of ARB therapy * Cr improved from 4.3 on admission to 3.2 following IV hydration (baseline 0.9) * Patient appears euvolemic. Hold IVF and encourage oral hydration * Electrolyte balance is acceptable * BMP in a.m. (2) Hyponatremia: Plan: * Corrected. Continue NaCl 1g po BID * Monitor BMP (3) Hypertension: Plan: * Patient has presented with dehydration and hypotension related to GI illness * BP remains low. Continue to hold losartan (4) Campylobacter diarrhea: Plan: * Source of infection is unclear. Both patient and her dog have been ill with diarrhea * Patient denies recent exposure to undercooked food. She drinks only bottled water. * Patient is symptomatically improved this morning. Continue supportive care. Plan 50-minute visit - review medical record, interview & examin patient, discussed POC with patient, ordered a.m. labs, update medical record Admission and Anticipated Discharge Date Admission Date: August 21, 2025 Subjective Mrs. Avitia was evaluated in her hospital room this morning. She reports that her diarrhea is slowing, UO is improved. She denies fever. Abdominal discomfort has improved and she is tolerating a regular diet Review of Systems Constitutional: no fever Eyes: no problem reported Ear, Nose, Mouth, Throat: no problem reported Respiratory: no cough and no dyspnea Cardiovascular: no chest pain Gastrointestinal: + diarrhea/loose stools; no abdominal pa in Genitourinary: no dysuria Integumentary: no rash Physical Exam Constitutional: not in distress Eyes: PERRL, conjunctivae normal, anicteric sclerae ENMT: external ear and nose normal, oropharynx normal Neck: trachea midline, no thyromegaly Respiratory: normal respiratory effort, lungs clear to auscultation Cardiovascular: RRR, no murmur, no edema Gastrointestinal (Abdomen): normal bowel sounds, soft, nontender, no hepatosplenomegaly Musculoskeletal: Extremities: no cyanosis and no clubbing Skin: + turgor decreased Neurologic: no focal motor deficits Results & Data Vital Signs (Past 12 Hours) Vital Signs Temp Pulse Pulse Resp BP BP Pulse Ox 08/22/25 06:45 71 08/22/25 03:12 36.5 C 80 18 119/75 95 08/22/25 00:54 71 08/21/25 22:50 36.7 C 70 20 96/60 L 95 08/21/25 20:54 O2 Del Method 08/22/25 06:45 08/22/25 03:12 Room Air 08/22/25 00:54 08/21/25 22:50 Room Air 08/21/25 20:54 Room Air Laboratory Results Laboratory Results - last 24 hr 08/22/25 08/22/25 06:57 08:51 WBC 5.93 RBC 3.23 L Hgb 9.7 L Hct 28.6 L MCV 88.5 MCH 30.0 MCHC 33.9 RDW Std Deviation 44.1 RDW Coeff of Travis 13.4 Plt Count 282 MPV 9.7 Sodium 138 Potassium 3.8 Chloride 115 H Carbon Dioxide 17 L Anion Gap 6 BUN 25 H Creatinine 3.18 H D Est Cr Clr Drug Dosing 16.1 eGFR 15.41 BUN/Creatinine Ratio 7.9 L Glucose 124 H Lactate 0.9 Calcium 7.5 L Procalcitonin 0.38 PG Care Time/CCT Total # of Minutes Spent Total Time Spent with Patient: Total time spent is greater than 50% in coordination of care (as documented) at patient's floor/unit and/or counseling patient: Coding Level of Care Code 51304 SUB INP/OBS CARE 3/50MIN Diagnoses ROMY (acute kidney injury) N17.9 Hyponatremia E87.1 Hypertension I10 Campylobacter diarrhea A04.5
[2025-08-22 07:49] LABS: Hematocrit (blood only) 28.6 % (37.0-47.0); Hemoglobin 9.7 g/dl (12.0-16.0); Mean Corpuscular Hemoglobin 30.0 pg (25.0-34.0); Mean Corpuscular Volume 88.5 fL (80.0-100.0); Platelet Count 282 K/uL (130-400); RDW Standard Deviation 44.1 fL (36.4-46.3); Red Blood Count 3.23 M/uL (4.20-5.40); White Blood Count 5.93 K/ul (4.8-10.8)
[2025-08-22 08:07] LABS: Anion Gap 6.0 (3-11); Blood Urea Nitrogen 25.0 mg/dl (6-23); Calcium 7.5 mg/dl (8.6-10.3); Carbon Dioxide 17.0 mmol/L (21-32); Chloride 115.0 mmol/L (98-107); Creatinine Clr Calc Pharmacy 16.1 ml/min; Glucose 124.0 mg/dl (70-99(Fasting)); Potassium 3.8 mmol/L (3.5-5.1); Sodium 138.0 mmol/L (136-145)
[2025-08-22] MEDS: INFLUENZA VACC TS2025-26(65y+)/PF (IIV3) 0.5mL Syr IM ONE (09:40)
[2025-08-22 15:33] VITALS: RESP 18
--- NOTE | 2025-08-22 16:22 | Hospitalist Progress Note ---
Date of Service August 22, 2025 Assessment & Plan (1) ROMY (acute kidney injury): Plan: Most likely due to increased insensible losses due to acute cefuroxime- intermediate, otherwise castellon-sensitive Klebsiella pneumoniae UTI (as noted on 08/20/2025, 9:41pm urine culture). In turn, etiology of acute cefuroxime- intermediate, otherwise castellon-sensitive Klebsiella pneumoniae UTI (as noted on 08/20/2025, 9:41pm urine culture) is probably due to translocation of Klebsiella pneumoniae in stool to urine given patient's recent bouts of loose, watery stools at home on Saturday (08/20/2025). Acute kidney injury is RESOLVING well with: a. antibiotic treatment (ceftriaxone 2g IV x 1 dose (08/20/2025, 11:31pm); ceftriaxone 1g IV daily x 2 doses (08/21/2025, 9:05am; 08/22/2025, 9:40am). b. IV fluid rehydration therapy (0.25L of 0.9% NS @ 999 mL/hr (08/20/2025, 11:31pm), 1 L of 0.9% NS @ 125 mL/hr (08/20/2025, 9:55pm), 2 L of 0.9% NS @ 150 mL/hr (08/21/2025, 1:08am, 9:05am)). c. holding off patient's home-scheduled losartan 100mg PO daily given the potential for this medication to cause further renal embarrassment. cf., BUN 28, creatinine 4.04 (08/20/2025, 2:26pm). cf., BUN 28, creatinine 4.34 (08/20/2025, 8:08pm). cf., BUN 29, creatinine 3.95 (08/21/2025, 8:26am). cf., BUN 25, creatinine 3.18 (08/22/2025, 6:57am). Check repeat creatinine level in the 08/23/2025 am. (2) Campylobacter diarrhea: Plan: cf., stool Campylobacter PCR+ (08/21/2025, 12:40am). Patient reported 5 loose, watery stools at home on Saturday (08/20/2025). Patient reports 0 loose, watery stools at [facility] on Saturday (08/21/2025, 08/22/2025). RESOLVED. Observe without antibiotic treatment as this infection is self-limited. Etiology of Campylobacter diarrhea remains unclear. (3) Hyponatremia: Plan: cf., Na 128 mmol/L (08/20/2025, 2:26pm). cf., Na 128 mmol/L (08/20/2025, 8:08pm). cf., Na 132 mmol/L (08/21/2025, 8:26am). cf., Na 138 mmol/L (08/22/2025, 6:57am). Acute hypovolemic hyponatremia RESOLVED after having received 0.25L of 0.9% NS @ 999 mL/hr (08/20/2025, 11:31pm), 1 L of 0.9% NS @ 125 mL/hr (08/20/2025, 9:55pm), 2 L of 0.9% NS @ 150 mL/hr (08/21/2025, 1:08am, 9:05am). Etiology of acute hypovolemic hyponatremia was most probably due to acute cefuroxime-intermediate, otherwise castellon-sensitive Klebsiella pneumoniae UTI (as noted on 08/20/2025, 9:41pm urine culture)-mediated natri-uresis. (4) Acute hypokalemia: (5) Hypertension: Plan: Well-controlled with BP 102/65 OFF patient's home-scheduled losartan 100mg PO daily given the potential for this medication to cause further renal embarrassment. (6) Anxiety: Plan: Asymptomatic. Observe. (7) COPD (chronic obstructive pulmonary disease): Plan: Asymptomatic. Continue albuterol MDI 90ug/puff, 1 puff PO qid prn SOB/wheeze and umeclidinium 62.5ug / vilanterol 25ug/puff, 1 puff PO daily. (8) Hyperlipidemia: Plan: Asymptomatic on rosuvastatin 10mg PO daily. Plan 65 years old female with PMH of FULL CODE @ home, chronic normocytic, normochromic anemia with baseline Hb range, 9.8 g/dL (06/10/2018, 7:12am) to 11.8 g/dL (11/20/2023, 9:06am), ongoing tobacco abuse with subsequent diagnosis of COPD, not on home O2 or home steroids, ongoing ETOH abuse with no subsequent diagnosis of ETOH-mediated hepatitis or ETOH-mediated cirrhosis, who was admitted to the inpatient hospitalist service @ [facility] on 08/21/2025 with the following diagnoses: 1. Acute cefuroxime-intermediate, otherwise castellon-sensitive Klebsiella pneumoniae UTI (as noted on 08/20/2025, 9:41pm urine culture). 2. Acute Campylobacter diarrhea. 3. Acute hypovolemic hyponatremia with admission Na 128 mmol/L (08/20/2025, 2:26pm). 4. Acute hypokalemia with admission K 3.3 mmol/L (08/20/2025, 8:08pm). #Diarrhea Resolving Parenteral hydration NSS @ 150cc/hr x 2 L +Campylobacter on PCR Defer antibiotics given improving course #ROMY Baseline ~1 Suspect pre-renal in setting of severe dehydration and decreased oral intake due to above Continue parenteral hydration, promote good oral intake Follow BMP Hold losartan Avoid nephrotoxic agents #Hyponatremia Pt with history of SIADH Suspect exacerbated due to decreased solute intake Continue home salt tabs Total NSS infused will have been 3L Follow BMP #HTN Hypotensive on admission Losartan held due to ROMY #HLD Continue Crestor #COPD Does not appear in acute exacerbation No baseline O2 use Continue Anoro and PRN albuterol FENGI: regular diet, NSS as above Code status: full code DVT prophylaxis: heparin in setting of ROMY Disposition: med/tele Admission and Anticipated Discharge Date Admission Date: August 21, 2025 Subjective "I feel fine. No nausea, vomiting, or diarrhea today. I feel fine, like I said to you yesterday (08/21/2025), I only came here because my doctor told me that my kidney numbers were high. Otherwise, I felt fine. Now, I know by your tell ing me that I have a urinary tract infection with Klebsiella, and that is why my kidney numbers were high. Since my kidney numbers are coming down, you think I can go home tomorrow? I feel fine, really." Review of Systems Constitutional: Negative for antecedent/coincident pruritus, lethargy, confusion, fevers, chills, diaphoresis, cough, wheeze, sore throat, hemoptysis, shortness of breath, dyspnea on exertion, chest pains, palpitations, pleurisy, nausea, vomiting, diarrhea, abdominal pain, pelvic pain, hematemesis, hematochezia, melena, hematuria, dysuria, frequency, urgency, headaches, dizziness, lightheadedness, visual changes, hearing changes, weakness, falls, syncope, trauma, travel history, sick contacts, or food/drug ingestions novel or new. All other review of systems are reported as negative by the patient on 08/22/2025. Physical Exam Constitutional: General: Comfortable, cooperative, coherent. Wide awake and alert. Not confused, lethargic, or obtunded. Patient speaks in complete, fluent, and articulate sentences without pause, interruption, cough, or wheeze. HEENT: Normocephalic, atraumatic. Extra-ocular muscles intact. Pupils equally round and reactive to light. No nystagmus, gaze paresis, anisocoria, miosis, mydriasis, hyphema, chemosis, scleral injection, conjunctivitis, or pterygium. No otorrhea or rhinorrhea. No pharyngeal discharge or exudate. Neck: Supple, no stridor or bruit. Jugular venous pressure is estimated to be 3 cm above the sternal angle of [place], which is, by definition, 5 cm above the level of the right atrium. Hence, jugular venous pressure of 8 cm is not elevated on discharge date 08/22/2025. Lymphatics: No anterior/posterior cervical, infraclavicular, supraclavicular, axillary, epitrochlear, or inguinal adenopathy. Chest: Symmetric rise and fall with respirations. Non-tender to palpation. Lungs: Clear to auscultation and percussion. No audible expiratory wheeze, egophony, pectoriloquy, increase in tactile fremitus, or flatness/dullness to percussion at the bases. Heart: Regular rate and rhythm. S1 and S2 noted. No S3 or S4 summation gallop. No tripartite friction rub. Grade II/ early systolic murmur at left lower sternal border without radiation to the carotids, axilla, or back, and which remains invariant in regards to the respiratory cycle. Abdomen: Soft, non-tender, non-distended. No rebound, guarding, Vidales's sign, or organomegaly. Bowel sounds auscultated in all 4 quadrants. Extremities: No clubbing, cyanosis, or edema. 2+ pedal pulses bilaterally. Skin: No decubitus ulcer, exanthem, or enanthem. Urology: No fuller catheter. No purewick. No urethral discharge. Neurology: Alert and oriented in regards to person, place, time, and situation. DTR+. 5/5 motor strength in all 4 extremities, both proximally and distally. Back: No spinal tenderness. No paraspinal tenderness. Straight leg raising negative/normal bilaterally. Psychiatry: No flat affect. No monotone voice. Smiles appropriately. Results & Data Results & Data Vital Signs (Past 12 Hours) Vital Signs Temp Pulse Pulse Resp BP Pulse Ox O2 Del Method 08/22/25 15:32 36.8 C 74 18 102/65 96 Room Air 08/22/25 13:03 72 08/22/25 08:33 36.6 C 72 17 99/64 L 96 Room Air 08/22/25 06:45 71 Laboratory Results Urine culture (08/20/2025, 9:41pm): cefuroxime-intermediate, otherwise castellon- sensitive Klebsiella pneumoniae Blood culture #1 (08/20/2025, 11:07pm): no growth to date Blood culture #2 (08/20/2025, 11:07pm): no growth to date Stool Campylobacter PCR+ (08/21/2025, 12:40am). BUN 28, creatinine 4.04 (08/20/2025, 2:26pm). BUN 28, creatinine 4.34 (08/20/2025, 8:08pm). BUN 29, creatinine 3.95 (08/21/2025, 8:26am). BUN 25, creatinine 3.18 (08/22/2025, 6:57am). Na 128 mmol/L (08/20/2025, 2:26pm). Na 128 mmol/L (08/20/2025, 8:08pm). Na 132 mmol/L (08/21/2025, 8:26am). Na 138 mmol/L (08/22/2025, 6:57am). K 4.0 mmol/L (08/20/2025, 2:26pm). K 3.3 mmol/L (08/20/2025, 8:08pm). K 3.8 mmol/L (08/21/2025, 8:26am). K 3.8 mmol/L (08/22/2025, 6:57am). Hb 11.9 g/dL, MCV 88.0, MCHC 33.2 (08/20/2025, 8:08pm). Hb 9.7 g/dL, MCV 88.5, MCHC 33.9 (08/22/2025, 6:57am)(after having received 0.25L of 0.9% NS @ 999 mL/hr (08/20/2025, 11:31pm), 1 L of 0.9% NS @ 125 mL/hr (08/20/2025, 9:55pm), 2 L of 0.9% NS @ 150 mL/hr (08/21/2025, 1:08am, 9:05am). cf., chronic normocytic, normochromic anemia with baseline Hb range, 9.8 g/dL (06/10/2018, 7:12am) to 11.8 g/dL (11/20/2023, 9:06am). PG Care Time/CCT Total # of Minutes Spent Total Time Spent with Patient: Total time spent is greater than 50% in coordination of care (as documented) at patient's floor/unit and/or counseling patient: Coding Level of Care Code 37534 SUB INP/OBS CARE 2/35MIN Diagnoses ROMY (acute kidney injury) N17.9 Campylobacter diarrhea A04.5 Hyponatremia E87.1 Acute hypokalemia E87.6 Primary hypertension I10 Hypertension type: primary hypertension Anxiety F41.9 Simple chronic bronchitis J41.0 Chronic bronchitis type: simple COPD type: chronic bronchitis Mixed hyperlipidemia E78.2 Hyperlipidemia type: mixed hyperlipidemia (5) Hypertension Hypertension type: primary hypertension Qualified Code(s): I10 - Essential (primary) hypertension (7) COPD (chronic obstructive pulmonary disease) Chronic bronchitis type: simple COPD type: chronic bronchitis Qualified Code(s): J41.0 - Simple chronic bronchitis (8) Hyperlipidemia Hyperlipidemia type: mixed hyperlipidemia Qualified Code(s): E78.2 - Mixed hyperlipidemia
[2025-08-23 07:34] VITALS: TEMP 97.9; O2SAT 95
[2025-08-23 07:43] LABS: Anion Gap 6.0 (3-11); Blood Urea Nitrogen 20.0 mg/dl (6-23); Calcium 8.3 mg/dl (8.6-10.3); Carbon Dioxide 19.0 mmol/L (21-32); Chloride 114.0 mmol/L (98-107); Creatinine Clr Calc Pharmacy 19.8 ml/min; Glucose 100.0 mg/dl (70-99(Fasting)); Potassium 4.1 mmol/L (3.5-5.1); Sodium 139.0 mmol/L (136-145)
--- NOTE | 2025-08-23 08:54 | Nephrology Progress Note ---
Date of Service August 23, 2025 Assessment & Plan (1) ROMY (acute kidney injury): Plan: * ROMY due to dehydration in the setting of ARB therapy * Patient is now within the recovery phase. Cr improved from 4.3 on admission to 2.5 (baseline 0.9) * Patient appears euvolemic. Hold IVF and encourage oral hydration * Electrolyte balance is acceptable * Will order BMP for am * Patient is anxious to return home. In order to facilitate discharge, I have placed order in ambulatory EMR for follow up appt w/ Dr. Garrett in one week and ordered BMP, CBC to be completed 1-2 days prior to OV. My office support specialist staff will contact patient to arrange appt and laboratory testing (2) Hyponatremia: Plan: * Corrected. Continue NaCl 1g po BID * Monitor BMP (3) Hypertension: Plan: * Patient has presented with dehydration and hypotension related to GI illness * BP remains low. Continue to hold losartan. Can reassess need for losartan as outpatient (4) Campylobacter diarrhea: Plan: * Source of infection is unclear. Both patient and her dog have been ill with diarrhea * Patient denies recent exposure to undercooked food. She drinks only bottled water. * Patient is symptomatically improved this morning. Continue supportive care. Admission and Anticipated Discharge Date Admission Date: August 21, 2025 Subjective Mrs. Avitia was evaluated in her hospital room this morning. She reports that her diarrhea has resolved. She is voiding normally. Mrs. Avitia denies fever. Her abdominal discomfort has resolved and she is tolerating a regular diet Review of Systems Constitutional: no fever Eyes: no problem reported Ear, Nose, Mouth, Throat: no problem reported Respiratory: no cough and no dyspnea Cardiovascular: no chest pain Gastrointestinal: no abdominal pain and no diarrhea/loose stools Genitourinary: no dysuria Integumentary: no rash Physical Exam Constitutional: not in distress Eyes: PERRL, conjunctivae normal, anicteric sclerae ENMT: external ear and nose normal, oropharynx normal Neck: trachea midline, no thyromegaly Respiratory: normal respiratory effort, lungs clear to auscultation Cardiovascular: RRR, no murmur, no edema Gastrointestinal (Abdomen): normal bowel sounds, soft, nontender, no hepatosplenomegaly Musculoskeletal: Extremities: no cyanosis and no clubbing Skin: + turgor decreased Neurologic: no focal motor deficits Results & Data Vital Signs (Past 12 Hours) Vital Signs Temp Pulse Pulse Resp BP Pulse Ox O2 Del Method 08/23/25 07:33 36.6 C 76 18 122/82 95 Room Air 08/23/25 03:52 36.9 C 89 18 117/62 90 Room Air 08/22/25 23:13 36.6 C 82 18 99/67 L 95 Room Air 08/22/25 21:46 75 Laboratory Results Laboratory Results - last 24 hr 08/22/25 08/23/25 08:51 06:31 Sodium 139 Potassium 4.1 Chloride 114 H Carbon Dioxide 19 L Anion Gap 6 BUN 20 Creatinine 2.58 H D Est Cr Clr Drug Dosing 19.8 eGFR 19.80 BUN/Creatinine Ratio 7.8 L Glucose 100 H Lactate 0.9 0.6 Calcium 8.3 L Procalcitonin 0.38 Pending PG Care Time/CCT Total # of Minutes Spent Total Time Spent with Patient: 50-minute visit - reviewed medical record including laboratory testing, interviewed & examined patient, discussed POC with patient, ordered a.m. labs, assisted w/ scheduling outpatient follow up, medical record updated Coding Level of Care Code 31651 SUB INP/OBS CARE 3/50MIN Diagnoses ROMY (acute kidney injury) N17.9 Hyponatremia E87.1 Primary hypertension I10 Hypertension type: primary hypertension Campylobacter diarrhea A04.5 (3) Hypertension Hypertension type: primary hypertension Qualified Code(s): I10 - Essential (primary) hypertension
[2025-08-23 11:27] VITALS: PULSE 75
[2025-08-23] MEDS: cefTRIAXone SODIUM 1,000 MG/50 ML BAG IV ONE (12:07)
[2025-08-23 13:27] VITALS: BP 122/82
--- NOTE | 2025-08-23 17:14 | Discharge Summary ---
Discharge Summary Date of Service August 23, 2025 Principal Dx & Hospital Course #1 = Principal Diagnosis (1) ROMY (acute kidney injury): Most likely due to increased insensible losses due to acute cefuroxime- intermediate, otherwise castellon-sensitive Klebsiella pneumoniae UTI (as noted on 08/20/2025, 9:41pm urine culture). In turn, etiology of acute cefuroxime- intermediate, otherwise castellon-sensitive Klebsiella pneumoniae UTI (as noted on 08/20/2025, 9:41pm urine culture) is probably due to translocation of Klebsiella pneumoniae in stool to urine given patient's recent bouts of loose, watery stools at home on Saturday (08/20/2025). Acute kidney injury is RESOLVING well with: a. antibiotic treatment (ceftriaxone 2g IV x 1 dose (08/20/2025, 11:31pm); c eftriaxone 1g IV daily x 3 doses (08/21/2025, 9:05am; 08/22/2025, 9:40am; 08/23/2025, 12:07pm). b. IV fluid rehydration therapy (0.25L of 0.9% NS @ 999 mL/hr (08/20/2025, 11:31pm), 1 L of 0.9% NS @ 125 mL/hr (08/20/2025, 9:55pm), 2 L of 0.9% NS @ 150 mL/hr (08/21/2025, 1:08am, 9:05am)). c. holding off patient's home-scheduled losartan 100mg PO daily given the potential for this medication to cause further renal embarrassment. cf., BUN 28, creatinine 4.04 (08/20/2025, 2:26pm). cf., BUN 28, creatinine 4.34 (08/20/2025, 8:08pm). cf., BUN 29, creatinine 3.95 (08/21/2025, 8:26am). cf., BUN 25, creatinine 3.18 (08/22/2025, 6:57am). cf., BUN 20, creatinine 2.58 (08/23/2025, 6:31am). cf., baseline creatinine range, 0.82 (12/17/2023, 1:51pm) to 0.96 (12/23/2024, 8:33am). Patient was subsequently discharged back to her home on 08/23/2025 with an electronic prescription for cefpodoxime 100mg PO q12, #6 tablets, no refills, transmitted to her [id number], [address] [place] [address], no refills on 08/23/2025, prior to hospital discharge back to her home on 08/23/2025. Patient was subsequently discharged back to her home off IV fluid rehydration therapy on 08/23/2025. Patient was subsequently discharged back to her home off losartan 100mg PO daily on 08/23/2025, and in fact, patient was advised to continue holding OFF re- starting her home-scheduled losartan 100mg PO daily until next Saturday (08/30/2025), on which date, patient was advised to re-start her home-scheduled losartan 100mg PO daily. Patient was also advised to undergo repeat creatinine level testing with her PCP Dr. Estefania Gtz within 5-7 days of hospital discharge. Patient reports that she will comply with all of these recommendations. (2) Campylobacter diarrhea: cf., stool Campylobacter PCR+ (08/21/2025, 12:40am). Patient reported 5 loose, watery stools at home on Saturday (08/20/2025). Patient reports 0 loose, watery stools at [facility] on Saturday (08/21/2025), Saturday (08/22/2025), and Saturday (08/23/2025)(discharge date). RESOLVED. Observe without antibiotic treatment as this infection is self-limited. Etiology of Campylobacter diarrhea remains unclear. (3) Hyponatremia: cf., Na 128 mmol/L (08/20/2025, 2:26pm). cf., Na 128 mmol/L (08/20/2025, 8:08pm). cf., Na 132 mmol/L (08/21/2025, 8:26am). cf., Na 138 mmol/L (08/22/2025, 6:57am). cf., Na 139 mmol/L (08/23/2025, 6:31am). Acute hypovolemic hyponatremia RESOLVED after having received 0.25L of 0.9% NS @ 999 mL/hr (08/20/2025, 11:31pm), 1 L of 0.9% NS @ 125 mL/hr (08/20/2025, 9:55pm), 2 L of 0.9% NS @ 150 mL/hr (08/21/2025, 1:08am, 9:05am). Etiology of acute hypovolemic hyponatremia was most probably due to acute cefuroxime-intermediate, otherwise castellon-sensitive Klebsiella pneumoniae UTI (as noted on 08/20/2025, 9:41pm urine culture)-mediated natri-uresis. (4) Acute hypokalemia: cf., K 4.0 mmol/L (08/20/2025, 2:26pm). cf., K 3.3 mmol/L (08/20/2025, 8:08pm). cf., K 3.8 mmol/L (08/21/2025, 8:26am). cf., K 3.8 mmol/L (08/22/2025, 6:57am). cf., K 4.1 mmol/L (08/23/2025, 6:31am). Acute hypokalemia RESOLVED PRIOR to receiving KCl 40meq PO x 1 dose (08/21/2025, 1:49am). Etiology of acute hypokalemia was most probably due to acute cefuroxime- intermediate, otherwise castellon-sensitive Klebsiella pneumoniae UTI (as noted on 08/20/2025, 9:41pm urine culture)-mediated carlos-uresis. (5) Hypertension: Well-controlled with BP 122/82 (08/23/2025, 1:22pm) OFF patient's home-scheduled losartan 100mg PO daily given the potential for this medication to cause further renal embarrassment. Patient was subsequently discharged back to her home off losartan 100mg PO daily on 08/23/2025, and in fact, patient was advised to continue holding OFF re- starting her home-scheduled losartan 100mg PO daily until next Saturday (08/30/2025), on which date, patient was advised to re-start her home-scheduled losartan 100mg PO daily. Patient was also advised to undergo repeat creatinine level testing with her PCP Dr. Estefania Gtz within 5-7 days of hospital discharge. Patient reports that she will comply with all of these recommendations. (6) Anxiety: Asymptomatic. Observe. (7) COPD (chronic obstructive pulmonary disease): Asymptomatic. Continue albuterol MDI 90ug/puff, 1 puff PO qid prn SOB/wheeze and umeclidinium 62.5ug / vilanterol 25ug/puff, 1 puff PO daily. (8) Hyperlipidemia: Asymptomatic on rosuvastatin 10mg PO daily. Plan 65 years old female with PMH of FULL CODE @ home, chronic normocytic, normochromic anemia with baseline Hb range, 9.8 g/dL (06/10/2018, 7:12am) to 11.8 g/dL (11/20/2023, 9:06am), ongoing tobacco abuse with subsequent diagnosis of COPD, not on home O2 or home steroids, ongoing ETOH abuse with no subsequent diagnosis of ETOH-mediated hepatitis or ETOH-mediated cirrhosis, who was admitted to the inpatient hospitalist service @ [facility] on 08/21/2025 with the following diagnoses: 1. Acute cefuroxime-intermediate, otherwise castellon-sensitive Klebsiella pneumoniae UTI (as noted on 08/20/2025, 9:41pm urine culture). 2. Acute Campylobacter diarrhea. 3. Acute hypovolemic hyponatremia with admission Na 128 mmol/L (08/20/2025, 2:26pm). 4. Acute hypokalemia with admission K 3.3 mmol/L (08/20/2025, 8:08pm). #Diarrhea Resolving Parenteral hydration NSS @ 150cc/hr x 2 L +Campylobacter on PCR Defer antibiotics given improving course #ROMY Baseline ~1 Suspect pre-renal in setting of severe dehydration and decreased oral intake due to above Continue parenteral hydration, promote good oral intake Follow BMP Hold losartan Avoid nephrotoxic agents #Hyponatremia Pt with history of SIADH Suspect exacerbated due to decreased solute intake Continue home salt tabs Total NSS infused will have been 3L Follow BMP #HTN Hypotensive on admission Losartan held due to ROMY #HLD Continue Crestor #COPD Does not appear in acute exacerbation No baseline O2 use Continue Anoro and PRN albuterol FENGI: regular diet, NSS as above Code status: full code DVT prophylaxis: heparin in setting of ROMY Disposition: med/tele Admission HPI Per Admitting Provider 65 yo female PMHx COPD, 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 3 days ago she had tuna raysaodkrystin casserole for dinner. Subsequently developed nausea and vomiting. This progressed to diarrhea, multiple episodes per day. She has not had any thing more than a few bites of hoagie and very little hydration over the course of her illness. Today she called her captain of guards who ordered labs and found her to have significant ROMY and referred her to the ER. At the time of admission the patient does not have significant symptoms. Denies CP, SOB, N/V/D at this time. Denies any recent travel, consumption of well water, sick exposures. ED Course: Labs reveal hyponatremia, severe ROMY, elevated procal, UA with 1+ blood, 3+ leuk esterase, 4+ bacteria CTAP: diverticulosis, possible ileus, possible enteritis Given 1L NSS, ceftriaxone Discharge Exam Constitutional General: Comfortable, cooperative, coherent. Wide awake and alert. Not confused, lethargic, or obtunded. Patient speaks in complete, fluent, and articulate sentences without pause, interruption, cough, or wheeze. HEENT: Normocephalic, atraumatic. Extra-ocular muscles intact. Pupils equally round and reactive to light. No nystagmus, gaze paresis, anisocoria, miosis, mydriasis, hyphema, chemosis, scleral injection, conjunctivitis, or pterygium. No otorrhea or rhinorrhea. No pharyngeal discharge or exudate. Neck: Supple, no stridor or bruit. Jugular venous pressure is estimated to be 3 cm above the sternal angle of [place], which is, by definition, 5 cm above the level of the right atrium. Hence, jugular venous pressure of 8 cm is not elevated on discharge date 08/23/2025. Lymphatics: No anterior/posterior cervical, infraclavicular, supraclavicular, axillary, epitrochlear, or inguinal adenopathy. Chest: Symmetric rise and fall with respirations. Non-tender to palpation. Lungs: Clear to auscultation and percussion. No audible expiratory wheeze, egophony, pectoriloquy, increase in tactile fremitus, or flatness/dullness to percussion at the bases. Heart: Regular rate and rhythm. S1 and S2 noted. No S3 or S4 summation gallop. No tripartite friction rub. Grade II/ early systolic murmur at left lower sternal border without radiation to the carotids, axilla, or back, and which remains invariant in regards to the respiratory cycle. Abdomen: Soft, non-tender, non-distended. No rebound, guarding, Vidales's sign, or organomegaly. Bowel sounds auscultated in all 4 quadrants. Extremities: No clubbing, cyanosis, or edema. 2+ pedal pulses bilaterally. Skin: No decubitus ulcer, exanthem, or enanthem. Urology: No fuller catheter. No purewick. No urethral discharge. Neurology: Alert and oriented in regards to person, place, time, and situation. DTR+. 5/5 motor strength in all 4 extremities, both proximally and distally. Back: No spinal tenderness. No paraspinal tenderness. Straight leg raising negative/normal bilaterally. Psychiatry: No flat affect. No monotone voice. Smiles appropriately. Discharge Plan Discharge Items Patient Disposition: Home - Self-Care Reason For Visit: N/V/D, ROMY, HYPONATREMIA Discharge Diagnosis: 1. Acute cefuroxime-intermediate, otherwise castellon-sensitive Klebsiella pneumoniae UTI (as noted on 08/20/2025, 9:41pm urine culture). 2. Acute kidney injury with admission BUN 28, creatinine 4.04 mg/dL (08/20/2025, 2:26pm). 3. Acute Campylobacter diarrhea. 4. Acute hypovolemic hyponatremia with admission Na 128 mmol/L (08/20/2025, 2:26pm). 5. Acute hypokalemia with admission K 3.3 mmol/L (08/20/2025, 8:08pm). Condition on Discharge: Fair Activity: Resume your previous activity Lifting: Gradually increase as tolerated Bathing: No limitations Sexual Activity: When tolerated Exercise/Sports: Gradually increase as tolerated Driving/Machine Use: No limitations Weightbearing: Full weightbearing Non-emergency contact: Primary Care Provider Call non-emergency contact if: you have any medication questions Follow-up/Referrals: Estefania Gtz MD [Primary Care Provider] - 08/31/25 11:00 am Diet: Heart Healthy Addtl Attending Provider Instructions: See your PCP Dr. Estefania Gtz within 5-7 days of hospital discharge to: 1. Check repeat creatinine level. 2. Check final results of blood cultures #1 and #2 (08/20/2025, 11:07pm). Pending Studies at Discharge: Yes Studies:: See your PCP Dr. Estefania Gtz within 5-7 days of hospital discharge to: 1. Check repeat creatinine level. 2. Check final results of blood cultures #1 and #2 (08/20/2025, 11:07pm). Stand-Alone Forms: My [facility], Smoking Cessation Medications and DC Order Prescriptions: New cefpodoxime 100 mg tablet 100 mg PO Q12H Qty: 6 0RF Rx Instructions: must administer with a meal/food; start taking cefpodoxime 100mg PO q12 on 08/24/2025, 9:00am, 9:00pm; then 08/25/2025, 9:00am, 9:00pm; then 08/26/2025, 9:00am, 9:00pm; then stop. Continued mirtazapine 15 mg tablet 15 mg PO QPM Qty: 90 3RF sodium chloride 1,000 mg tablet,soluble 1,000 mg PO BID Qty: 180 3RF gabapentin 100 mg capsule 100 mg PO TID Qty: 270 3RF folic acid 1 mg tablet See Rx Instructions .ROUTE .COMPLEX Qty: 90 3RF Dose Instruction: TAKE 1 TABLET BY MOUTH EVERY DAY Rx Instructions: TAKE 1 TABLET BY MOUTH EVERY DAY cyclobenzaprine 10 mg tablet 10 mg PO BID PRN (Reason: muscle spasm) Qty: 60 5RF rosuvastatin 10 mg tablet 10 mg PO DAILY Qty: 90 3RF cyanocobalamin (vitamin B-12) 1,000 mcg tablet 1,000 mcg PO QAM Qty: 30 aspirin [Enteric Coated Aspirin] 81 mg tablet,delayed release (DR/EC) 81 mg PO QAM albuterol sulfate 90 mcg/actuation HFA aerosol inhaler 1 inh inhalation QID PRN (Reason: shortness of breath or wheezing) Qty: 6.7 1RF Prolia 60 mg/mL syringe 60 mg subcut ONCE Qty: 1 1RF Rx Instructions: q6 months Held losartan 100 mg tablet 100 mg PO DAILY Qty: 90 3RF Hold Instructions: Resume on 08/30/25. omeprazole 20 mg capsule,delayed release(DR/EC) 20 mg PO QAM Qty: 90 3RF Hold Instructions: Resume on 08/30/25. DO NOT take omeprazole 20mg PO daily while you are taking cefpodoxime 100mg PO q12 (08/24/2025 through 08/26/2025) as omeprazole can reduce the amount of cefpodoxime that gets into your bloodstream. Discharge Orders: Discharge Order (Routine); Ordered 08/23/25 Ordered By: Chava Forbes Admission Data Admit Date/Time: 08/21/25 00:46 Attending Provider: Chava Forbes Admit Provider: Brett Mcwilliams Primary Care Provider: Estefania Gtz Other Providers: Renzo Goldstein; Brett Mcwilliams Other Interventions: Discharge Summary Assessment (RN) Last Done: 08/23/25 13:24 Hospital Stay Data Consultations 08/21/25 00:43 ED Decision to Admit Stat 08/21/25 00:46 Consult Nephrology Routine Diagnostic Imagining Performed 08/20/25 20:39 CT abd pelvis wo con Stat Pending Results Patient Have Any Pending Studies at Discharge: Yes Discharge Instructions Given to Patient (Per Discharging Provider) See your PCP Dr. Estefania Gtz within 5-7 days of hospital discharge to: 1. Check repeat creatinine level. 2. Check final results of blood cultures #1 and #2 (08/20/2025, 11:07pm). Total Time Total Time Spent Total Time Spent (In Minutes): 35 minutes. Of this time period, 19 minutes were spent in coordinating patient's discharge. Coding Level of Care Code 33642 INP/OBS DISCH >30 MIN Diagnoses ROMY (acute kidney injury) N17.9 Campylobacter diarrhea A04.5 Hyponatremia E87.1 Acute hypokalemia E87.6 Primary hypertension I10 Hypertension type: primary hypertension Anxiety F41.9 Simple chronic bronchitis J41.0 COPD type: chronic bronchitis Chronic bronchitis type: simple Mixed hyperlipidemia E78.2 Hyperlipidemia type: mixed hyperlipidemia
== END 2025-08-23 13:55 | disposition home or self-care (01) | DRG 683 ==
LOC: ED 17:30 → SUATTDRO 08-21 00:46 → 2N 08-21 00:46